=== PATIENT | female | born 1950 ===

== ENCOUNTER 2017-10-04 17:36 | Inpatient (IN) | payer SELFPAY ==
[2017-10-04] MEDS ORDERED: Azithromycin 500mg/250ML NS 500 MG/250 ML BAG IV STA (18:52)
[2017-10-04] MEDS ORDERED: cefTRIAXone IV 1 gm in Dextros 50 ML IV STA (18:52)
[2017-10-04] MEDS ORDERED: Sodium Chloride 0.9% 1,000 ML IV ONE (18:52)
[2017-10-04 19:08] LABS: BASO # 0.1 K/uL (0.0-0.2); BASO % 0.5 % (0.0-2.0); EOS # 0.1 K/uL (0.0-0.7); EOS % 0.4 % (0.0-4.0); LYMPH # 0.7 K/uL (1.0-4.3); LYMPH % 2.9 % (20.0-40.0); MEAN CELL VOLUME 84.1 fL (81.0-99.0); MEAN CORPUSCULAR HEMOGLOBIN 28.5 pg (27.0-31.0); MEAN CORPUSCULAR HGB CONC 33.9 g/dL (33.0-37.0); MEAN PLATELET VOLUME 10.7 fL (7.2-11.7); MONO # 0.8 K/uL (0.0-0.8); MONO % 3.4 % (0.0-10.0); PLATELET COUNT 174 K/uL (130-400); RED CELL DISTRIBUTION WIDTH 13.6 % (11.5-14.5); WHITE BLOOD COUNT 22.5 K/uL (4.8-10.8)
[2017-10-04 19:25] LABS: CALCIUM 8.4 mg/dl (8.6-10.4); TOTAL PROTEIN 6.2 g/dL (6.3-8.3)
[2017-10-04 19:33] LABS: NEUTROPHIL 89 % (50-75); TOTAL CELLS COUNTED 100
[2017-10-04] MEDS ORDERED: Potassium Chloride 20 mEq ER Tab PO STA (19:55)
--- NOTE | 2017-10-04 19:57 | C.PDOC ---
History Of Present Illness Luisa Milner is a 67 year old female, with a past medical history of hypertension , who presents to the emergency department complaining of right sided pleuritic pain and fever onset for x1 week. Patient recently came from [facility]. She reports feeling lightheaded and weak when she walks. Patient has a family history of respiratory problems. She denies any other medical complaints. PMD: None provided. Time Seen by Provider: 10/04/17 18:24 Chief Complaint (Nursing): Fever History Per: Patient History/Exam Limitations: no limitations Onset/Duration Of Symptoms: Days Current Symptoms Are (Timing): Still Present Sick Contacts (Context): None Associated Symptoms: Fever Ear Symptoms: Bilateral: None Recent travel outside of the [place]: [facility] Past Medical History Reviewed: Historical Data, Nursing Documentation, Vital Signs Vital Signs: Last Vital Signs Temp 98.2 F 10/04/17 22:44 Pulse 71 10/04/17 22:44 Resp 20 10/04/17 22:44 BP 109/72 10/04/17 22:44 Pulse Ox 94 L 10/04/17 22:44 - Medical History PMH: HTN Surgical History: No Surg Hx Family History: States: Unknown Family Hx - Social History Hx Tobacco Use: No Hx Alcohol Use: No Hx Substance Use: No - Immunization History Hx Tetanus Toxoid Vaccination: No Hx Influenza Vaccination: No Hx Pneumococcal Vaccination: No Review Of Systems Except As Marked, All Systems Reviewed And Found Negative. Constitutional: Positive for: Fever Respiratory: Positive for: Pleuritic Pain (right sided) Physical Exam - Physical Exam Appears: Other (sick and febrile) Skin: Normal Color, Warm, Dry Head: Atraumatic, Normacephalic Eye(s): bilateral: Normal Inspection, PERRL, EOMI Neck: Normal, Normal ROM, Supple Cardiovascular: Other (tachycardic) Respiratory: Decreased Breath Sounds (on right side) Gastrointestinal/Abdominal: Normal Exam, Soft, No Tenderness Back: Normal Inspection, No CVA Tenderness Extremity: Normal ROM, No Pedal Edema, No Deformity, No Swelling Neurological/Psych: Oriented x3, Normal Speech ED Course And Treatment - Laboratory Results Result Diagrams: 10/04/17 19:04 10/04/17 19:04 O2 Sat by Pulse Oximetry: 93 (RA) Pulse Ox Interpretation: Abnormal Medical Decision Making Medical Decision Making: Initial Impression: Initial Plan: --Chest w/o contrast [CT] --Comp Metabolic Panel --CBC w/ differential --Chest two views (PA/LAT) [RAD] --ceftriaxone 50 ml IV --Potassium Chloride 20 meq PO --Protonix EC tab 40 mg PO --NS IV 1,000 ml @ 125 mls/hr --Tylenol 675 mg PO --Zithromax 250 ml IV --Blood culture --reevaluation --Xray show right sided right upper lobe infiltrate. --Spoke to Dr. Rodríguez who accepted her for admission. 19:[address] FINDINGS: Lungs: Calcified granulomas noted in the left lung apex. Patchy subpleural atelectasis is noted within the lingula. Hypoventilatory changes seen within the right lower lobe. There is a consolidation of the right upper lobe with relative sparing of the right lung apex. There are bronchograms are noted throughout the consolidated segment. A 4 mm nodule noted in the right middle lobe. There is a small pericardial effusion. Pleural space: There are small bilateral pleural effusions. No pneumothorax. Heart: See above. Mediastinum: There is a small hiatal hernia. Bones/joints: Unremarkable. No acute fracture. No dislocation. Soft tissues: Unremarkable. Vasculature: Unremarkable. No thoracic aortic aneurysm. Lymph nodes: Calcified perihilar and subcarinal lymph nodes are noted Liver: Calcifications are noted within the liver. Kidneys and ureters: A less than 2 mm area of high density is noted in the upper pole of the left kidney. This could represent a tiny calcification or hyperdense tiny renal lesion. Stomach and bowel: There scattered colonic diverticula. IMPRESSION: 1. Right upper lobe consolidation with relative sparing of the lung apex. Small bilateral pleural effusions. 2. Small pericardial effusion. 3. Small hiatal hernia. 4. Calcified mediastinal adenopathy with hepatic calcifications, and calcified granuloma in the left lung apex indicate previous granulomas infection. 5. Faint hyperdensity noted in the left kidney.This could represent a tiny calcification or hyperdense renal lesion 6. 4 mm nodule in the right middle lobe. This could be inflammatory. Followup recommended. Disposition - Disposition Disposition: HOSPITALIZED Disposition Time: 19:56 Condition: FAIR - Clinical Impression Clinical Impression: Pneumonia - Scribe Statement Boaz Bowens All medical record entries made by the Scribe were at my direction and personally dictated by me. I have reviewed the chart and agree that the record accurately reflects my personal performance of the history, physical exam, medical decision making, and the department course for this patient. I have also personally directed, reviewed, and agree with the discharge instructions and disposition. Decision To Admit - Pt Status Changed To: Hospital Disposition Of: Inpatient - Admit Certification Admit to Inpatient:: After my assessment, the patient will require hospitalization for at least two midnights. This is because of the severity of symptoms shown, intensity of services needed, and/or the medical risk in this patient being treated as an outpatient. - InPatient: Physician Admission Certification:: patient will need more then 2 days of hospitalization and IV antibiotics. - . Bed Request Type: Regular Patient Diagnosis: Pneumonia
[2017-10-04] MEDS ORDERED: Potassium Chloride 20 mEq ER Tab PO ONE (20:19)
[2017-10-04 21:28] VITALS: RESP 20
--- NOTE | 2017-10-04 21:54 | CP.PCM.HP ---
<Bolivar Chaudhry - Last Filed: 10/04/17 22:12> History of Present Illness - History of Present Illness History of Present Illness: PGY-1 H&P for Dr[address] Rodríguez CC:Upper back pain on right side This is a 67 year old female with PMHx hypertension who presents complaining of right sided upper back pain. This began on Friday when the patient developed a sharp pain in the right upper thoracic region extending to the axilla on the same side. Pain worsens with breathing and conversing for long periods of time. Patient is at times short of breath but primarily she is experiencing a dry cough. Patient has been taking Naproxen 220 mg tabs 2-3 times daily since Friday to help with the pain with mild relief. Patient does not experience any other pain aside from the upper back pain. There is also complaint of some pain with urination which has also started around the same time. Patient also complaining of constipation but last BM was earlier this morning. Patient also feels a bit lightheaded at times. Of note, the patient is visiting [facility] and has been taking Irbesartan/HCTZ 300/12.5 mg daily that [place]. PMHx: Hypertension PSHx: Denies Allergies: NKDA Social: From [facility]. Denies ever smoking. No alcohol or drug use. Family Hx: Denies Meds:Irbesartan/HCTZ 300/12.5 mg daily and Naproxen 220 mg prn (has been taking it 2-3 times daily) Present on Admission - Present on Admission Any Indicators Present on Admission: No Review of Systems - Constitutional Constitutional: Fever. absent: Chills - EENT Eyes: absent: Change in Vision Nose/Mouth/Throat: absent: Nasal Congestion - Cardiovascular Cardiovascular: absent: Chest Pain - Respiratory Respiratory: Cough. absent: Dyspnea - Gastrointestinal Gastrointestinal: Constipation. absent: Abdominal Pain, Diarrhea, Nausea, Vomiting - Genitourinary Genitourinary: Dysuria - Musculoskeletal Musculoskeletal: Back Pain (upper back) - Neurological Neurological: Weakness - Endocrine Endocrine: Fatigue Past Patient History - Past Social History Smoking Status: Never Smoked - CARDIAC Hx Hypertension: Yes - PSYCHIATRIC Hx Substance Use: No - SURGICAL HISTORY Hx Hysterectomy: Yes Meds Allergies/Adverse Reactions: Allergies Allergy/AdvReac Type Severity Reaction Status Date / Time No Known Allergies Allergy Unverified 10/04/17 17:42 Physical Exam - Constitutional Appears: No Acute Distress - Head Exam Head Exam: ATRAUMATIC, NORMOCEPHALIC - Eye Exam Eye Exam: EOMI, Normal appearance - ENT Exam ENT Exam: Mucous Membranes Moist - Respiratory Exam Respiratory Exam: Clear to Auscultation Bilateral. absent: Accessory Muscle Use , Rales, Rhonchi, Wheezes - Cardiovascular Exam Cardiovascular Exam: REGULAR RHYTHM, +S1, +S2 - GI/Abdominal Exam GI & Abdominal Exam: Normal Bowel Sounds, Soft. absent: Tenderness - Extremities Exam Extremities exam: Positive for: pedal pulses present. Negative for: pedal edema Additional comments: poor skin turgor - Back Exam Back exam: absent: CVA tenderness (L), CVA tenderness (R) - Neurological Exam Neurological exam: Alert, Oriented x3 - Psychiatric Exam Psychiatric exam: Normal Affect, Normal Mood - Skin Skin Exam: Dry, Intact, Warm Results - Vital Signs Recent Vital Signs: Last Vital Signs Temp 98 F 10/04/17 21:27 Pulse 79 10/04/17 21:27 Resp 20 10/04/17 21:27 BP 108/63 10/04/17 21:27 Pulse Ox 93 L 10/04/17 21:44 - Labs Result Diagrams: 10/04/17 19:04 10/04/17 19:04 Labs: Laboratory Results - last 24 hr 10/04/17 10/04/17 10/04/17 18:25 19:04 19:04 WBC 22.5 H RBC 3.45 L Hgb 9.8 L Hct 29.0 L MCV 84.1 MCH 28.5 MCHC 33.9 RDW 13.6 Plt Count 174 MPV 10.7 Neut % (Auto) 92.8 H Lymph % (Auto) 2.9 L Lamar % (Auto) 3.4 Eos % (Auto) 0.4 Baso % (Auto) 0.5 Neut # 20.9 H Lymph # 0.7 L Lamar # 0.8 Eos # 0.1 Baso # 0.1 Neutrophils % (Manual) 89 H Band Neutrophils % 3 H Lymphocytes % (Manual) 6 L Monocytes % (Manual) 2 Toxic Granulation Present Platelet Estimate Normal RBC Morphology Normal Sodium 130 L Potassium 3.0 L Chloride 101 Carbon Dioxide 22 Anion Gap 10 BUN 39 H Creatinine 2.3 H Est GFR ( Amer) 26 Est GFR (Non-Af Amer) 21 Random Glucose 168 H Calcium 8.4 L Total Bilirubin 1.0 AST 26 ALT 19 Alkaline Phosphatase 352 H Total Protein 6.2 L Albumin 3.0 L Globulin 3.1 Albumin/Globulin Ratio 1.0 Influenza Typ A,B (EIA) Negative for flu a/b Assessment & Plan - Assessment and Plan (Free Text) Plan: Pneumonia Azithromycin 500 mg IV daily Ceftriaxone 1 gm IV daily CXR-consolidation on the right f/u blood cultures f/u CT scan ordered by ED History of Hypertension Held Irbesartan/HCTZ due to renal insufficiency Monitor for now Renal insufficiency NS @125cc/hr Kdurr 40 mEq x2 doses F/u urinalysis F/u morning labs Anemia F/u iron studies including iron, TIBC, %saturation, ferritin, reticulocyte count F/u B12 and folate Prophylactic Measures Protonix 40 mg PO daily Heparin 5000U SC Q8 Heart Healthy Diet Case DW Dr. Anne Chaudhry PGY-1 <James Rodríguez P - Last Filed: 10/05/17 06:17> Results - Vital Signs Recent Vital Signs: Last Vital Signs Temp 97.9 F 10/05/17 00:00 Pulse 74 10/05/17 00:00 Resp 20 10/05/17 00:00 BP 109/70 10/05/17 00:00 Pulse Ox 96 10/05/17 00:00 - Labs Result Diagrams: 10/04/17 19:04 10/04/17 19:04 Labs: Laboratory Results - last 24 hr 10/04/17 10/04/17 10/04/17 18:25 19:04 19:04 WBC 22.5 H RBC 3.45 L Hgb 9.8 L Hct 29.0 L MCV 84.1 MCH 28.5 MCHC 33.9 RDW 13.6 Plt Count 174 MPV 10.7 Neut % (Auto) 92.8 H Lymph % (Auto) 2.9 L Lamar % (Auto) 3.4 Eos % (Auto) 0.4 Baso % (Auto) 0.5 Neut # 20.9 H Lymph # 0.7 L Lamar # 0.8 Eos # 0.1 Baso # 0.1 Neutrophils % (Manual) 89 H Band Neutrophils % 3 H Lymphocytes % (Manual) 6 L Monocytes % (Manual) 2 Toxic Granulation Present Platelet Estimate Normal RBC Morphology Normal APTT Sodium 130 L Potassium 3.0 L Chloride 101 Carbon Dioxide 22 Anion Gap 10 BUN 39 H Creatinine 2.3 H Est GFR ( Amer) 26 Est GFR (Non-Af Amer) 21 Random Glucose 168 H Calcium 8.4 L Total Bilirubin 1.0 AST 26 ALT 19 Alkaline Phosphatase 352 H Total Protein 6.2 L Albumin 3.0 L Globulin 3.1 Albumin/Globulin Ratio 1.0 Influenza Typ A,B (EIA) Negative for flu a/b 10/04/17 22:55 WBC RBC Hgb Hct MCV MCH MCHC RDW Plt Count MPV Neut % (Auto) Lymph % (Auto) Lamar % (Auto) Eos % (Auto) Baso % (Auto) Neut # Lymph # Lamar # Eos # Baso # Neutrophils % (Manual) Band Neutrophils % Lymphocytes % (Manual) Monocytes % (Manual) Toxic Granulation Platelet Estimate RBC Morphology APTT 30 Sodium Potassium Chloride Carbon Dioxide Anion Gap BUN Creatinine Est GFR ( Amer) Est GFR (Non-Af Amer) Random Glucose Calcium Total Bilirubin AST ALT Alkaline Phosphatase Total Protein Albumin Globulin Albumin/Globulin Ratio Influenza Typ A,B (EIA) Attending/Attestation - Attestation I have personally seen and examined this patient.: Yes I have fully participated in the care of the patient.: Yes I have reviewed all pertinent clinical information: Yes Notes (Text): Assessment RUL pna with pleurisy ELIZABETH related with diuretic, arb, nsaid hypokalemia from diuretic Anemia r/o iorn def H/o gastritis Plan Rocephin, zithromax IVF KCL replacement Mag level Iron studies counselled about nsaids gi and dvt prophylaxis.
[2017-10-04] MEDS: Sodium Chloride 0.9% 1,000 ML IV SCH (22:20)
[2017-10-04] MEDS: Potassium Chloride 20 mEq ER Tab PO SCH (22:33)
[2017-10-05] MEDS: Potassium Chloride 20 mEq ER Tab PO SCH (02:34)
[2017-10-05] MEDS: Sodium Chloride 0.9% 1,000 ML IV SCH ×2 (06:25→13:15)
[2017-10-05 08:09] LABS: RBC URINE 5 /hpf (0-3); URINE BACTERIA RARE (<OCC); URINE BILIRUBIN NEGATIVE (NEGATIVE); URINE BLOOD 1+ (NEGATIVE); URINE COLOR Yellow (YELLOW); URINE GLUCOSE (UA) NORMAL (Normal); URINE KETONE NEGATIVE (NEGATIVE); URINE LEUKOCYTE ESTERASE NEG Leu/uL (Negative); URINE PROTEIN NEGATIVE (NEGATIVE); URINE UROBILINOGEN NORMAL mg/dL (0.2-1.0); WBC URINE 2 /hpf (0-5)
[2017-10-05 08:14] LABS: BASO # 0.1 K/uL (0.0-0.2); BASO % 0.4 % (0.0-2.0); EOS # 0.3 K/uL (0.0-0.7); EOS % 1.3 % (0.0-4.0); HEMATOCRIT 29.3 % (34.0-47.0); LYMPH # 1.1 K/uL (1.0-4.3); LYMPH % 4.7 % (20.0-40.0); MEAN CELL VOLUME 85.2 fL (81.0-99.0); MEAN CORPUSCULAR HEMOGLOBIN 29.1 pg (27.0-31.0); MEAN CORPUSCULAR HGB CONC 34.1 g/dL (33.0-37.0); MEAN PLATELET VOLUME 11.1 fL (7.2-11.7); MONO % 4.2 % (0.0-10.0); PLATELET COUNT 161 K/uL (130-400); RED CELL DISTRIBUTION WIDTH 13.6 % (11.5-14.5); RETIC% 0.5 % (0.5-1.5); WHITE BLOOD COUNT 23.8 K/uL (4.8-10.8)
[2017-10-05 08:27] LABS: ABG ALLEN TEST POS; DRAW SITE LRA
--- NOTE | 2017-10-05 08:32 | RAD ---
HISTORY: COMPARISON: No prior. TECHNIQUE: Chest PA and lateral FINDINGS: LINES AND TUBES: None. LUNG AND PLEURA: And fever there is dense consolidation with air bronchograms in the right upper lobe. The left lung is clear. HEART AND MEDIASTINUM: The heart is not enlarged. The hilar and mediastinal contours are within normal limits. SKELETAL STRUCTURES: The bony structures are within normal limits for the patient's age. VISUALIZED UPPER ABDOMEN: Normal. OTHER FINDINGS: None. IMPRESSION: Right upper lobe pneumonia. Follow-up to resolution is advised.
[2017-10-05 08:39] LABS: ALB/GLOB RATIO 0.9 (1.0-2.1); BILIRUBIN,TOTAL 0.8 mg/dL (0.2-1.3); CALCIUM 8.3 mg/dl (8.6-10.4); MAGNESIUM 1.9 mg/dL (1.6-2.3); POTASSIUM 4.3 mmol/L (3.6-5.2); TOTAL PROTEIN 5.8 g/dL (6.3-8.3)
[2017-10-05 08:41] LABS: IRON < 10 ug/dL (37-170)
[2017-10-05 08:59] LABS: TOTAL CELLS COUNTED 100
[2017-10-05 09:00] LABS: NEUTROPHIL 89 % (50-75)
[2017-10-05 09:33] LABS: FOLATE 17.2 ng/mL
--- NOTE | 2017-10-05 09:57 | CT ---
PROCEDURE: CT Chest without contrast HISTORY: right sided infiltrate COMPARISON: Plain radiographs performed earlier the same day TECHNIQUE: Contiguous axial images were obtained through the chest without intravenous contrast enhancement. Sagittal and coronal reconstructions were performed. Radiation dose (DLP): 204.46 mGy-cm. This CT exam was performed using one or more of the following dose reduction techniques: Automated exposure control, adjustment of the mA and/or kV according to patient size, and/or use of iterative reconstruction technique. FINDINGS: LUNGS: There is dense consolidation with air bronchogram in the right upper lobe and to a lesser extent in the right middle lobe and superior segment of the right lower lobe. There is relative sparing of the right apex. There is a bulla in the right upper lobe. There is a 5 mm noncalcified peripheral nodule in the right middle lobe (series 3, image 56 and There are scattered calcified granulomas in both lungs. MEDIASTINUM: There is mild cardiomegaly and small pericardial effusion. There are calcified mediastinal and hilar lymph nodes. PLEURA: Small bilateral pleural effusions, worse on the right. No pneumothorax. BONES: No fracture. No destructive lesion. UPPER ABDOMEN: There are punctate calcifications in the right hepatic lobe which may be related to calcified granulomas. There is scattered diverticulosis in the visualized colon. Incompletely imaged are low density lesions in the kidneys with eccentric hyperdensity in the left upper pole lesion. OTHER FINDINGS: There is a small sliding hiatal hernia. IMPRESSION: 1. Right upper lobe pneumonia. Follow-up to resolution is advised. 2. Small pericardial effusion and bilateral small pleural effusions, worse on the right. 3. Calcified granulomas in the lungs and calcified mediastinal and hilar lymph nodes, likely a sequela of remote granulomatous infection. 4. 4 mm noncalcified nodule in the right middle lobe. 5. Incompletely imaged and characterized bilateral kidney lesions. Please correlate with retroperitoneal ultrasound. A preliminary report was provided by [facility].
[2017-10-05] MEDS: Pantoprazole 40 mg EC Tab PO SCH (10:31)
[2017-10-05] MEDS: Saccharomyces Boulardi 250 mg Cap PO SCH ×2 (10:31→18:01)
--- NOTE | 2017-10-05 10:56 | CP.PCM.PN ---
<Ashley Leahy - Last Filed: 10/05/17 15:34> Subjective - Date & Time of Evaluation Date of Evaluation: 10/05/17 Time of Evaluation: 10:54 - Subjective Subjective: Medicine Progress Note: Hospitalist Service Patient seen and examined at bedside. Per nursing no acute events overnight. Patient is doing well, states that she feels chest pain every time she takes a deep breath. Also states that she has been coughing a lot with sputum production. States that she has no known history of renal disease that she is aware of. Currently denies fevers, chills, headaches, dizziness, palpitations, sob, abdominal pain, urinary symptoms, changes in bowel habits. Objective - Vital Signs/Intake and Output Vital Signs (last 24 hours): Temp Pulse Resp BP Pulse Ox 99 F 77 20 124/79 95 10/05/17 08:17 10/05/17 08:17 10/05/17 08:17 10/05/17 08:17 10/05/17 08:17 - Medications Medications: Current Medications Acetaminophen (Tylenol 325mg Tab) 650 mg PO Q6 PRN PRN Reason: fever, pain Heparin Sodium (Porcine) (Heparin) 5,000 units SC Q8 [facility] Last Admin: 10/05/17 05:20 Dose: 5,000 units Azithromycin 500 mg/ Sodium (Chloride) 250 mls @ 250 mls/hr IVPB DAILY@2100 [facility] Ceftriaxone Sodium 1 gm/ (Sodium Chloride) 100 mls @ 100 mls/hr IVPB DAILY@ 2000 [facility] Sodium Chloride (Sodium Chloride 0.9%) 1,000 mls @ 125 mls/hr IV .Q8H [facility] Last Admin: 10/05/17 06:25 Dose: 125 mls/hr Pantoprazole Sodium (Protonix Ec Tab) 40 mg PO DAILY [facility] Last Admin: 10/05/17 10:31 Dose: 40 mg Saccharomyces Boulardii (Florastor) 250 mg PO BID [facility] Last Admin: 10/05/17 10:31 Dose: 250 mg - Labs Labs: 10/05/17 07:54 10/05/17 07:54 APTT 30 SECONDS (21-34) 10/04/17 22:55 - Constitutional Appears: Non-toxic, No Acute Distress - Head Exam Head Exam: ATRAUMATIC, NORMAL INSPECTION - Eye Exam Eye Exam: EOMI, Normal appearance - ENT Exam ENT Exam: Mucous Membranes Moist - Respiratory Exam Respiratory Exam: Decreased Breath Sounds, Rhonchi, NORMAL BREATHING PATTERN. absent: Accessory Muscle Use, Rales, Wheezes, Respiratory Distress - Cardiovascular Exam Cardiovascular Exam: REGULAR RHYTHM, +S1, +S2 - GI/Abdominal Exam GI & Abdominal Exam: Soft, Normal Bowel Sounds. absent: Firm, Guarding, Rigid, Tenderness - Rectal Exam Rectal Exam: Deferred - Extremities Exam Extremities Exam: Normal Capillary Refill, Normal Inspection. absent: Calf Tenderness - Neurological Exam Neurological Exam: Alert, Awake, Oriented x3 - Psychiatric Exam Psychiatric exam: Normal Affect, Normal Mood - Skin Skin Exam: Dry, Normal Color, Warm Assessment and Plan - Assessment and Plan (Free Text) Assessment: 1. Community Acquired Pneumonia * Pneumonia severity index 117 - Risk class IV, 8.2-9.3% mortality, Hospitalization recommended * Patient is Hypoxic on morning ABG * pH 7.39 PO2 46 PCO2 31 HCO3 20 * Continuous O2 via NC * Bipap STAT * Will repeat ABG this afternoon, after bipap * Will transfer to telemetry floor * CXR on admission - Right upper lobe pneumonia * Will repeat CXR this afternoon * Leukocytosis 23.8 * Antibiotics: Azithromycin 500 mg IV daily, Ceftriaxone 1 gm IV daily, Florastor 250mg BID * One dose of Vancomycin 500mg IVPB ordered * NS @ 50 cc/hr * F/U urine s pneumo, urine legionella, mycoplasma * F/U blood cx, urine cx, procalcitonin * CT scan: Right upper lobe pneumonia, small pericadial effusion and bilateral small pleural effusions, worse on the right. Calcified granulomas in the lungs and calcified mediastinal and hilar lymph nodes, likely a sequela of remote granulomatous infection. 4mm noncalcified nodule in the right middle lobe. Incompletely imaged and characterized bilateral kidney lesion 2. History of Hypertension * Held Irbesartan/HCTZ due to renal insufficiency * Monitor for now 3. Renal insufficiency * BUN/Cr - 31/2.0 * Baseline Renal function unknown * Patient has a hx of Naproxen use, avoid NSAIDs and other nephrotoxic medications at this time * Continue NS @125cc/hr * Renal US: 5mm non-obtructing stone in upper pole, no hydronephrosis; incidental finding of gallbladder sludge, GBW thickening, pericholecystic fluid * FeNa 3.0% suggesting Intrinsic cause of renal insufficiency * Urine microalbumin 20.4 * F/U total protein, random * F/U Bladder US * Nephrology on consult, Dr Austin, help appreciated 4. Anemia * Hgb 10.0 * Baseline hemoglobin unknown * Stool occult negative * Anemia workup * Iron <10 * TIBC 197 * % saturation 5.07 * Retic count 0.5 * Ferritin 131 * Vitamin B12 419 * Folate 17.2 * F/U haptoglobin 5. Small Pericardial Effusion * Incidental finding noted on CT chest * Echo ordered for further evaluation * Will consider cardiology consult 6. Abnormal Gallbladder finding, R/O acute cholecystitis * Gallbladder sludge, GBW thickening, pericholecystic fluid noted on renal US report * Difficult to assess if patient is having +[place] sign as inspiratory effort is poor 2/2 pleuritic chest pain * T bili within normal range, LFTs within normal range * Surgery on consult, Dr Ochoa, help appreciated Prophylactic Measures Protonix 40 mg PO daily Heparin 5000U SC Q8 Heart Healthy Diet <Nelda Bullard V - Last Filed: 10/06/17 21:17> Objective - Vital Signs/Intake and Output Vital Signs (last 24 hours): Temp Pulse Resp BP Pulse Ox 98.5 F 68 20 163/93 H 95 10/06/17 16:10 10/06/17 18:00 10/06/17 16:10 10/06/17 16:10 10/06/17 16:10 Intake and Output: 10/06/17 10/07/17 18:59 06:59 Intake Total 400 Balance 400 - Medications Medications: Current Medications Acetaminophen (Tylenol 325mg Tab) 650 mg PO Q6 PRN PRN Reason: fever, pain Amlodipine Besylate (Norvasc) 5 mg PO DAILY [facility] Last Admin: 10/06/17 16:04 Dose: 5 mg Ferrous Sulfate (Feosol) 325 mg PO BID [facility] Last Admin: 10/06/17 17:24 Dose: 325 mg Heparin Sodium (Porcine) (Heparin) 5,000 units SC Q8 [facility] Last Admin: 10/06/17 13:39 Dose: 5,000 units Azithromycin 500 mg/ Sodium (Chloride) 250 mls @ 250 mls/hr IVPB DAILY@2100 [facility] Last Admin: 10/05/17 22:26 Dose: 250 mls/hr Ceftriaxone Sodium 1 gm/ (Sodium Chloride) 100 mls @ 100 mls/hr IVPB DAILY@ 2000 [facility] Last Admin: 10/06/17 19:38 Dose: 100 mls/hr Sodium Chloride (Sodium Chloride 0.9%) 1,000 mls @ 50 mls/hr IV .Q20H [facility] Last Admin: 10/06/17 16:06 Dose: Not Given Pantoprazole Sodium (Protonix Ec Tab) 40 mg PO DAILY [facility] Last Admin: 10/06/17 09:05 Dose: 40 mg Saccharomyces Boulardii (Florastor) 250 mg PO BID [facility] Last Admin: 10/06/17 17:24 Dose: 250 mg - Labs Labs: 10/06/17 07:18 10/06/17 07:18 APTT 30 SECONDS (21-34) 10/04/17 22:55 Attending/Attestation - Attestation I have personally seen and examined this patient.: Yes I have fully participated in the care of the patient.: Yes I have reviewed all pertinent clinical information, including history, physical exam and plan: Yes Notes (Text): This is late computer for 10/05/2017. Patient seen, examined, case discussed with daytime resident. Patient seen in the morning sitting upright coughing with productive phlegm. Patient is waiting for breakfast. Per review of records patient is reporting unremitting cough for about 3 weeks. Patient to present with leukocytosis and febrile over 102.8 Fahrenheit. Lactic acid is within normal. Therefor code sepsis was not called. Patient is on IV antibiotics to cover for pneumonia. Patient denies any recent hospitalizations, denies recent alf visits. Patient did have an ABG which did show hypoxia. Patient started on BiPAP when necessary.. Was endorsed to night-resident Nova with repeat ABG. Patient transferred to telemetry for close monitoring. Reviewed superficial CT chest read. Patient noted to have small pericardial effusion. Patient is ordered waiting for echocardiogram. Patient does percent with acute renal insufficiency. Patient is IV fluids. Creatinine has mildly improved. Patient is off nephrotoxic agents including antihypertensive medicationssuch as john/arb and thiazide diuretic. Patient has completed renal ultrasound. Nephrology is on the case. It is unclear what her baseline creatinine is. Please note patient is also has a long-standing history of hypertension. Assessment/Plan 1. Community Acquired Pneumonia Pneumonia severity index 117 - Risk class IV, 8.2-9.3% mortality, Hospitalization recommended . Patient is Hypoxic on morning ABG: pH 7.39 PO2 46 PCO2 31 HCO3 20 Continuous O2 via NC and Bipap STAT Will repeat ABG this afternoon, after bipap to monitor improvement in oxygen status Will transfer to telemetry floor CXR on admission - Right upper lobe pneumonia Will repeat CXR this afternoon Leukocytosis 23.8: Antibiotics: Azithromycin 500 mg IV daily, Ceftriaxone 1 gm IV daily, Florastor 250mg BID; One dose of Vancomycin 500mg IVPB ordered NS @ 50 cc/hr F/U urine s pneumo, urine legionella, mycoplasma F/U blood cx, urine cx, procalcitonin CT scan: Right upper lobe pneumonia, small pericadial effusion and bilateral small pleural effusions, worse on the right. Calcified granulomas in the lungs and calcified mediastinal and hilar lymph nodes, likely a sequela of remote granulomatous infection. 4mm noncalcified nodule in the right middle lobe. Incompletely imaged and characterized bilateral kidney lesion 2. History of Hypertension Held Irbesartan/HCTZ due to renal insufficiency Gentle IV hydration and monitor vital signs 3. Acute Renal insufficiency BUN/Cr - 31/2.0 Baseline Renal function unknown Patient has a hx of Naproxen use, avoid NSAIDs and other nephrotoxic medications at this time. Will hold antihypertensives On IV fluids Nephrology: Dr Austin on board Renal US: 5mm non-obtructing stone in upper pole, no hydronephrosis; incidental finding of gallbladder sludge, GBW thickening, pericholecystic fluid FeNa 3.0% suggesting Intrinsic cause of renal insufficiency Urine microalbumin 20.4; F/U total protein, random F/U Bladder US 4. Anemia Hgb 10.0 Baseline hemoglobin unknown Stool occult negative Anemia workup: Iron <10, TIBC 197,% saturation 5.07,Retic count 0.5, Ferritin 131, Vitamin B12 419, [id number] F/U haptoglobin 5. Small Pericardial Effusion Incidental finding noted on CT chest Echo ordered for further evaluation; pending result will consider cardiology consult if needed 6. Abnormal Gallbladder finding, R/O acute cholecystitis Gallbladder sludge, GBW thickening, pericholecystic fluid noted on renal US report Difficult to assess if patient is having +[place] sign as inspiratory effort is poor 2/2 pleuritic chest pain T bili within normal range, LFTs within normal range Surgery on consult, Dr Ochoa, help appreciated: residential field manager has seen and evaluated patient does not believe it's acute cholecystitis will be set gallbladder contracture is from the nature of the procedure of ultrasound. Recommendation appreciated. 7.Prophylactic Measures Protonix 40 mg PO daily Heparin 5000U SC Q8 Heart Healthy Diet
--- NOTE | 2017-10-05 12:59 | US ---
PROCEDURE: Ultrasound of the Kidneys HISTORY: Acute renal failure; L kidney lesion on CT COMPARISON: None available. TECHNIQUE: Ralph scale imaging was performed. FINDINGS: RIGHT KIDNEY: Measures: 10.5 cm. Normal in size, contour with diffuse increased echogenicity. No solid mass lesion or hydronephrosis visualized. There is a 5 mm non -obstructing stone in the upper pole. There is a 1.0 cm cyst in the upper pole. LEFT KIDNEY: Measures: 9.8 cm. Normal in size, contour with diffuse increased echogenicity. No stone, solid mass lesion or hydronephrosis visualized. There are 6 mm and 9 mm cyst in the lower pole. OTHER FINDINGS: Incidental finding of gall bladder sludge, wall thickening and pericholecystic fluid. IMPRESSION: 5 mm non -obstructing stone in the upper pole. No hydronephrosis. Medical renal disease.
[2017-10-05 14:44] LABS: CREATININE, RANDOM URINE 24.9 mg/dL
--- NOTE | 2017-10-05 15:49 | RAD ---
HISTORY: Shortness of breath COMPARISON: No prior. FINDINGS: LUNGS: There is worsening right upper lobe consolidation. Lateral homogeneous right pleural-based opacity could represent loculated effusion. There is a stable calcified granuloma in the left upper lobe. PLEURA: No significant pleural effusion identified, no pneumothorax apparent. CARDIOVASCULAR: Normal. OSSEOUS STRUCTURES: No significant abnormalities. VISUALIZED UPPER ABDOMEN: Normal. OTHER FINDINGS: None. IMPRESSION: Worsening right upper lobe pneumonia and suspect loculated pleural effusion.
--- NOTE | 2017-10-05 15:58 | CP.PCM.CON ---
History of Present Illness - History of Present Illness History of Present Illness: General Surgery: Dr Ochoa Pt S&E. Admitted for chest pain/upper back pain. Found to have RML pneumonia as well as acute renal failure. Both appear to be improving after 48 hours abx. Pt was sent for renal ultrasound which noted a thickened gb wall with sludge and questionable fluid. Gallbladder appears normal on CT Pt denies any abdominal pain. There is no exacerbation of symptoms or new onset of symptoms post-prandially. She has not had any nausea or emesis. Has never had any symptoms in the past reflective of biliary symptoms. Pt only complaint at this time is central sub-sternal chest pain only when she coughs. Review of Systems - Review of Systems All systems: reviewed and no additional remarkable complaints except (as per hpi ) Past Patient History - Past Medical History & Family History Past Medical History?: Yes - Past Social History Smoking Status: Never Smoked - CARDIAC Hx Hypertension: Yes - MUSCULOSKELETAL/RHEUMATOLOGICAL Hx Falls: Yes (WEAKNESS ON THE KNEES) - PSYCHIATRIC Hx Substance Use: No - SURGICAL HISTORY Hx Hysterectomy: Yes - ANESTHESIA Hx Anesthesia: Yes Hx Anesthesia Reactions: No Hx Malignant Hyperthermia: No Has any member of the family had a problem w/ anesthesia?: No Meds Allergies/Adverse Reactions: Allergies Allergy/AdvReac Type Severity Reaction Status Date / Time No Known Allergies Allergy Unverified 10/04/17 17:42 - Medications Medications: Current Medications Acetaminophen (Tylenol 325mg Tab) 650 mg PO Q6 PRN PRN Reason: fever, pain Heparin Sodium (Porcine) (Heparin) 5,000 units SC Q8 [facility] Last Admin: 10/05/17 13:16 Dose: 5,000 units Azithromycin 500 mg/ Sodium (Chloride) 250 mls @ 250 mls/hr IVPB DAILY@2100 [facility] Ceftriaxone Sodium 1 gm/ (Sodium Chloride) 100 mls @ 100 mls/hr IVPB DAILY@ 2000 [facility] Sodium Chloride (Sodium Chloride 0.9%) 1,000 mls @ 50 mls/hr IV .Q20H [facility] Last Admin: 10/05/17 13:15 Dose: 50 mls/hr Vancomycin HCl/Dextrose (Vancocin) 500 mg in 100 mls @ 67 mls/hr IVPB ONCE ONE Stop: 10/05/17 17:29 Pantoprazole Sodium (Protonix Ec Tab) 40 mg PO DAILY [facility] Last Admin: 10/05/17 10:31 Dose: 40 mg Saccharomyces Boulardii (Florastor) 250 mg PO BID [facility] Last Admin: 10/05/17 10:31 Dose: 250 mg Physical Exam - Constitutional Appears: Non-toxic, No Acute Distress - Head Exam Head Exam: NORMAL INSPECTION - Eye Exam Eye Exam: Normal appearance. absent: Scleral icterus - ENT Exam ENT Exam: Mucous Membranes Moist - Respiratory Exam Respiratory Exam: absent: Accessory Muscle Use, Clear to Auscultation Bilateral (dec sounds on right), Respiratory Distress - Cardiovascular Exam Cardiovascular Exam: REGULAR RHYTHM. absent: Tachycardia - GI/Abdominal Exam GI & Abdominal Exam: Normal Bowel Sounds, Soft. absent: Distended, Firm, Guarding, Hernia, Tenderness - Extremities Exam Extremities exam: Negative for: pedal edema - Neurological Exam Neurological exam: Alert, Oriented x3 - Psychiatric Exam Psychiatric exam: Normal Affect, Normal Mood Results - Vital Signs Recent Vital Signs: Last Vital Signs Temp 99 F 10/05/17 08:17 Pulse 67 10/05/17 13:35 Resp 20 10/05/17 08:17 BP 124/79 10/05/17 08:17 Pulse Ox 95 10/05/17 08:17 - Labs Result Diagrams: 10/05/17 07:54 10/05/17 07:54 Labs: Laboratory Results - last 24 hr 10/04/17 10/04/17 10/04/17 18:25 19:04 19:04 WBC 22.5 H RBC 3.45 L Hgb 9.8 L Hct 29.0 L MCV 84.1 MCH 28.5 MCHC 33.9 RDW 13.6 Plt Count 174 MPV 10.7 Neut % (Auto) 92.8 H Lymph % (Auto) 2.9 L [place] % (Auto) 3.4 Eos % (Auto) 0.4 Baso % (Auto) 0.5 Neut # 20.9 H Lymph # 0.7 L [place] # 0.8 Eos # 0.1 Baso # 0.1 Neutrophils % (Manual) 89 H Band Neutrophils % 3 H Lymphocytes % (Manual) 6 L Monocytes % (Manual) 2 Toxic Granulation Present Platelet Estimate Normal RBC Morphology Normal Retic Count APTT Puncture Site pCO2 pO2 HCO3 ABG pH ABG Total CO2 ABG O2 Saturation ABG Base Excess Jose R Test ABG Potassium A-a O2 Difference Respiratory Index Glucose Lactate FiO2 Sodium 130 L Potassium 3.0 L Chloride 101 Carbon Dioxide 22 Anion Gap 10 BUN 39 H Creatinine 2.3 H Est GFR ( Amer) 26 Est GFR (Non-Af Amer) 21 POC Glucose (mg/dL) Random Glucose 168 H Calcium 8.4 L Magnesium Iron TIBC % Saturation Ferritin Total Bilirubin 1.0 AST 26 ALT 19 Alkaline Phosphatase 352 H Total Protein 6.2 L Albumin 3.0 L Globulin 3.1 Albumin/Globulin Ratio 1.0 Vitamin B12 Folate Arterial Blood Potassium Urine Color Urine Clarity Urine pH Ur Specific [place] Urine Protein Urine Glucose (UA) Urine Ketones Urine Blood Urine Nitrate Urine Bilirubin Urine Urobilinogen Ur Leukocyte Esterase Urine WBC (Auto) Urine RBC (Auto) Ur Squamous Epith Cells Amorphous Sediment Urine Bacteria Ur Random Creatinine Ur Random Sodium Urine Microalbumin Stool Occult Blood Influenza Typ A,B (EIA) Negative for flu a/b 10/04/17 10/05/17 10/05/17 22:55 07:40 07:50 WBC RBC Hgb Hct MCV MCH MCHC RDW Plt Count MPV Neut % (Auto) Lymph % (Auto) [place] % (Auto) Eos % (Auto) Baso % (Auto) Neut # Lymph # [place] # Eos # Baso # Neutrophils % (Manual) Band Neutrophils % Lymphocytes % (Manual) Monocytes % (Manual) Toxic Granulation Platelet Estimate RBC Morphology Retic Count APTT 30 Puncture Site pCO2 pO2 HCO3 ABG pH ABG Total CO2 ABG O2 Saturation ABG Base Excess Jose R Test ABG Potassium A-a O2 Difference Respiratory Index Glucose Lactate FiO2 Sodium Potassium Chloride Carbon Dioxide Anion Gap BUN Creatinine Est GFR ( Amer) Est GFR (Non-Af Amer) POC Glucose (mg/dL) 86 Random Glucose Calcium Magnesium Iron TIBC % Saturation Ferritin Total Bilirubin AST ALT Alkaline Phosphatase Total Protein Albumin Globulin Albumin/Globulin Ratio Vitamin B12 Folate Arterial Blood Potassium Urine Color Yellow Urine Clarity Clear Urine pH 5.0 Ur Specific [place] 1.005 Urine Protein Negative Urine Glucose (UA) Normal Urine Ketones Negative Urine Blood 1+ H Urine Nitrate Negative Urine Bilirubin Negative Urine Urobilinogen Normal Ur Leukocyte Esterase Neg Urine WBC (Auto) 2 Urine RBC (Auto) 5 H Ur Squamous Epith Cells < 1 Amorphous Sediment Rare H Urine Bacteria Rare Ur Random Creatinine Ur Random Sodium Urine Microalbumin Stool Occult Blood Influenza Typ A,B (EIA) 10/05/17 10/05/17 10/05/17 07:54 07:54 07:54 WBC 23.8 H RBC 3.44 L Hgb 10.0 L Hct 29.3 L MCV 85.2 MCH 29.1 MCHC 34.1 RDW 13.6 Plt Count 161 MPV 11.1 Neut % (Auto) 89.4 H Lymph % (Auto) 4.7 L [place] % (Auto) 4.2 Eos % (Auto) 1.3 Baso % (Auto) 0.4 Neut # 21.2 H Lymph # 1.1 [place] # 1.0 H Eos # 0.3 Baso # 0.1 Neutrophils % (Manual) 89 H Band Neutrophils % 6 H Lymphocytes % (Manual) 3 L Monocytes % (Manual) 2 Toxic Granulation Platelet Estimate Normal RBC Morphology Normal Retic Count 0.5 APTT Puncture Site pCO2 pO2 HCO3 ABG pH ABG Total CO2 ABG O2 Saturation ABG Base Excess Jose R Test ABG Potassium A-a O2 Difference Respiratory Index Glucose Lactate FiO2 Sodium 138 Potassium 4.3 Chloride 108 H Carbon Dioxide 24 Anion Gap 10 BUN 31 H Creatinine 2.0 H Est GFR ( Amer) 30 Est GFR (Non-Af Amer) 25 POC Glucose (mg/dL) Random Glucose 85 Calcium 8.3 L Magnesium 1.9 Iron < 10 L TIBC 197 L % Saturation 5.07 L Ferritin 131.0 Total Bilirubin 0.8 AST 25 ALT 26 Alkaline Phosphatase 309 H Total Protein 5.8 L Albumin 2.7 L Globulin 3.1 Albumin/Globulin Ratio 0.9 L Vitamin B12 419 Folate 17.2 Arterial Blood Potassium Urine Color Urine Clarity Urine pH Ur Specific [place] Urine Protein Urine Glucose (UA) Urine Ketones Urine Blood Urine Nitrate Urine Bilirubin Urine Urobilinogen Ur Leukocyte Esterase Urine WBC (Auto) Urine RBC (Auto) Ur Squamous Epith Cells Amorphous Sediment Urine Bacteria Ur Random Creatinine Ur Random Sodium Urine Microalbumin Stool Occult Blood Influenza Typ A,B (EIA) 10/05/17 10/05/17 10/05/17 08:23 11:10 11:10 WBC RBC Hgb Hct MCV MCH MCHC RDW Plt Count MPV Neut % (Auto) Lymph % (Auto) [place] % (Auto) Eos % (Auto) Baso % (Auto) Neut # Lymph # [place] # Eos # Baso # Neutrophils % (Manual) Band Neutrophils % Lymphocytes % (Manual) Monocytes % (Manual) Toxic Granulation Platelet Estimate RBC Morphology Retic Count APTT Puncture Site Lra pCO2 31 L pO2 46 L HCO3 20.0 L ABG pH 7.38 ABG Total CO2 19.3 L ABG O2 Saturation 90.1 L ABG Base Excess -5.7 L Jose R Test Pos ABG Potassium 3.5 L A-a O2 Difference 65.0 Respiratory Index 1.4 Glucose 79 Lactate 0.6 L FiO2 21.0 Sodium 143.0 Potassium Chloride 117.0 H Carbon Dioxide Anion Gap BUN Creatinine Est GFR ( Amer) Est GFR (Non-Af Amer) POC Glucose (mg/dL) Random Glucose Calcium Magnesium Iron TIBC % Saturation Ferritin Total Bilirubin AST ALT Alkaline Phosphatase Total Protein Albumin Globulin Albumin/Globulin Ratio Vitamin B12 Folate Arterial Blood Potassium 3.5 L Urine Color Urine Clarity Urine pH Ur Specific [place] Urine Protein Urine Glucose (UA) Urine Ketones Urine Blood Urine Nitrate Urine Bilirubin Urine Urobilinogen Ur Leukocyte Esterase Urine WBC (Auto) Urine RBC (Auto) Ur Squamous Epith Cells Amorphous Sediment Urine Bacteria Ur Random Creatinine Ur Random Sodium Urine Microalbumin 20.4 H Stool Occult Blood Negative Influenza Typ A,B (EIA) 10/05/17 10/05/17 11:20 14:28 WBC RBC Hgb Hct MCV MCH MCHC RDW Plt Count MPV Neut % (Auto) Lymph % (Auto) [place] % (Auto) Eos % (Auto) Baso % (Auto) Neut # Lymph # [place] # Eos # Baso # Neutrophils % (Manual) Band Neutrophils % Lymphocytes % (Manual) Monocytes % (Manual) Toxic Granulation Platelet Estimate RBC Morphology Retic Count APTT Puncture Site pCO2 pO2 HCO3 ABG pH ABG Total CO2 ABG O2 Saturation ABG Base Excess Jose R Test ABG Potassium A-a O2 Difference Respiratory Index Glucose Lactate FiO2 Sodium Potassium Chloride Carbon Dioxide Anion Gap BUN Creatinine Est GFR ( Amer) Est GFR (Non-Af Amer) POC Glucose (mg/dL) 125 H Random Glucose Calcium Magnesium Iron TIBC % Saturation Ferritin Total Bilirubin AST ALT Alkaline Phosphatase Total Protein Albumin Globulin Albumin/Globulin Ratio Vitamin B12 Folate Arterial Blood Potassium Urine Color Urine Clarity Urine pH Ur Specific [place] Urine Protein Urine Glucose (UA) Urine Ketones Urine Blood Urine Nitrate Urine Bilirubin Urine Urobilinogen Ur Leukocyte Esterase Urine WBC (Auto) Urine RBC (Auto) Ur Squamous Epith Cells Amorphous Sediment Urine Bacteria Ur Random Creatinine 24.9 Ur Random Sodium 52 Urine Microalbumin Stool Occult Blood Influenza Typ A,B (EIA) Assessment & Plan - Assessment and Plan (Free Text) Assessment: 67F admitted with pneumonia and ARF; sx consulted r/o cholecystitis Plan: asymptomatic from a GI/abdominal standpoint tolerating diet unlikely acute cholecystitis - findings likely fuels sales representative of acute biliary contraction during the US process no surgical intervention planned d/w Dr Don Cobian, PGY3
[2017-10-05] MEDS ORDERED: Vancomycin 500mg/D5W 100 ml 500 MG/100 ML BAG IVPB ONE (16:00)
--- NOTE | 2017-10-05 16:23 | US ---
PROCEDURE: Ultrasound of the Bladder HISTORY: post-void residual volume? COMPARISON: None available. TECHNIQUE: Sonographic evaluation of the bladder was performed. FINDINGS: The urinary bladder is normal in appearance without wall thickening or intraluminal debris. No calculus or gross mass lesion. No free fluid in pelvis. Bilateral ureteral jets are visualized on color flow imaging. Prevoid Volume: 277 cc. Post void residual: 24 cc. IMPRESSION: Small postvoid residual.
--- NOTE | 2017-10-05 19:15 | CP.PCM.CON ---
History of Present Illness - History of Present Illness History of Present Illness: 67 yo F w/ pmh of htn, presented to ED with new onset chest pain; found to have large R sided pneumonia, renal insufficiency for which nephrology being consulted; Patient reports R sided chest pain started ~6 days ago, worsened by breathing; otherwise denies shortness of breath; started taking naproxen 2-3 times per day for the pain but previously was not using any oral pain meds; patient also was having decreased appetite since past few days and had not been taking anti-htn med since past 3 days; Otherwise, patient denies any difficulty urinating or feeling of incomplete bladder evacuation; urinates once per night; reports some mild dysuria lately; Patient denies any nausea, vomiting or diarrhea (actually has chronic constipation); Review of Systems - Constitutional Constitutional: Anorexia - EENT Eyes: absent: Change in Vision Nose/Mouth/Throat: absent: Nasal Discharge, Sore Throat - Cardiovascular Cardiovascular: As Per HPI Additional comments: occasional palpitations; - Respiratory Respiratory: Cough - Gastrointestinal Gastrointestinal: Constipation - Genitourinary Genitourinary: As Per HPI - Musculoskeletal Musculoskeletal: Arthralgias - Neurological Neurological: absent: Headaches Past Patient History - Past Medical History & Family History Past Medical History?: Yes Pertinent Family History: Denies family history of kidney disease; - Past Social History Smoking Status: Never Smoked - CARDIAC Hx Hypertension: Yes - MUSCULOSKELETAL/RHEUMATOLOGICAL Hx Falls: Yes (WEAKNESS ON THE KNEES) - PSYCHIATRIC Hx Substance Use: No - SURGICAL HISTORY Hx Hysterectomy: Yes - ANESTHESIA Hx Anesthesia: Yes Hx Anesthesia Reactions: No Hx Malignant Hyperthermia: No Has any member of the family had a problem w/ anesthesia?: No Meds Allergies/Adverse Reactions: Allergies Allergy/AdvReac Type Severity Reaction Status Date / Time No Known Allergies Allergy Unverified 10/04/17 17:42 - Medications Medications: Current Medications Acetaminophen (Tylenol 325mg Tab) 650 mg PO Q6 PRN PRN Reason: fever, pain Heparin Sodium (Porcine) (Heparin) 5,000 units SC Q8 [facility] Last Admin: 10/05/17 13:16 Dose: 5,000 units Azithromycin 500 mg/ Sodium (Chloride) 250 mls @ 250 mls/hr IVPB DAILY@2100 [facility] Ceftriaxone Sodium 1 gm/ (Sodium Chloride) 100 mls @ 100 mls/hr IVPB DAILY@ 2000 [facility] Sodium Chloride (Sodium Chloride 0.9%) 1,000 mls @ 50 mls/hr IV .Q20H [facility] Last Admin: 10/05/17 13:15 Dose: 50 mls/hr Pantoprazole Sodium (Protonix Ec Tab) 40 mg PO DAILY [facility] Last Admin: 10/05/17 10:31 Dose: 40 mg Saccharomyces Boulardii (Florastor) 250 mg PO BID [facility] Last Admin: 10/05/17 18:01 Dose: 250 mg Physical Exam - Constitutional Appears: Non-toxic, No Acute Distress - Head Exam Head Exam: NORMAL INSPECTION - Eye Exam Eye Exam: Normal appearance. absent: Scleral icterus - ENT Exam ENT Exam: Mucous Membranes Moist - Neck Exam Neck exam: Negative for: Lymphadenopathy - Respiratory Exam Respiratory Exam: absent: Respiratory Distress Additional comments: Markedly decreased breath sounds over R upper lung rodgers; - Cardiovascular Exam Cardiovascular Exam: RRR, +S1, +S2 Additional comments: no carotid bruits; faint b/l DP pulses; - GI/Abdominal Exam GI & Abdominal Exam: Soft. absent: Bruit, Distended, Tenderness - Extremities Exam Additional comments: no leg edema; - Neurological Exam Neurological exam: Alert, Oriented x3 - Psychiatric Exam Psychiatric exam: Normal Affect, Normal Mood - Skin Skin Exam: Warm Results - Vital Signs Recent Vital Signs: Last Vital Signs Temp 98.7 F 10/05/17 15:23 Pulse 63 10/05/17 16:00 Resp 20 10/05/17 15:23 BP 127/75 10/05/17 15:23 Pulse Ox 100 10/05/17 15:23 - Labs Result Diagrams: 10/05/17 07:54 10/05/17 07:54 Labs: Laboratory Results - last 24 hr 10/04/17 10/04/17 10/04/17 19:04 19:04 22:55 WBC RBC Hgb Hct MCV MCH MCHC RDW Plt Count MPV Neut % (Auto) Lymph % (Auto) [place] % (Auto) Eos % (Auto) Baso % (Auto) Neut # Lymph # [place] # Eos # Baso # Neutrophils % (Manual) 89 H Band Neutrophils % 3 H Lymphocytes % (Manual) 6 L Monocytes % (Manual) 2 Toxic Granulation Present Platelet Estimate Normal RBC Morphology Normal Retic Count APTT 30 Puncture Site pCO2 pO2 HCO3 ABG pH ABG Total CO2 ABG O2 Saturation ABG Base Excess Jose R Test ABG Potassium A-a O2 Difference Respiratory Index Glucose Lactate FiO2 Sodium 130 L Potassium 3.0 L Chloride 101 Carbon Dioxide 22 Anion Gap 10 BUN 39 H Creatinine 2.3 H Est GFR ( Amer) 26 Est GFR (Non-Af Amer) 21 POC Glucose (mg/dL) Random Glucose 168 H Calcium 8.4 L Magnesium Iron TIBC % Saturation Ferritin Total Bilirubin 1.0 AST 26 ALT 19 Alkaline Phosphatase 352 H Total Protein 6.2 L Albumin 3.0 L Globulin 3.1 Albumin/Globulin Ratio 1.0 Vitamin B12 Folate Procalcitonin Arterial Blood Potassium Urine Color Urine Clarity Urine pH Ur Specific [place]once Urine Protein Urine Glucose (UA) Urine Ketones Urine Blood Urine Nitrate Urine Bilirubin Urine Urobilinogen Ur Leukocyte Esterase Urine WBC (Auto) Urine RBC (Auto) Ur Squamous Epith Cells Amorphous Sediment Urine Bacteria Ur Random Creatinine Ur Random Sodium Urine Microalbumin Stool Occult Blood Mycoplasma pneumon IgM 10/05/17 10/05/17 10/05/17 06:54 06:54 07:40 WBC RBC Hgb Hct MCV MCH MCHC RDW Plt Count MPV Neut % (Auto) Lymph % (Auto) [place] % (Auto) Eos % (Auto) Baso % (Auto) Neut # Lymph # [place] # Eos # Baso # Neutrophils % (Manual) Band Neutrophils % Lymphocytes % (Manual) Monocytes % (Manual) Toxic Granulation Platelet Estimate RBC Morphology Retic Count APTT Puncture Site pCO2 pO2 HCO3 ABG pH ABG Total CO2 ABG O2 Saturation ABG Base Excess Jose R Test ABG Potassium A-a O2 Difference Respiratory Index Glucose Lactate FiO2 Sodium Potassium Chloride Carbon Dioxide Anion Gap BUN Creatinine Est GFR ( Amer) Est GFR (Non-Af Amer) POC Glucose (mg/dL) 86 Random Glucose Calcium Magnesium Iron TIBC % Saturation Ferritin Total Bilirubin AST ALT Alkaline Phosphatase Total Protein Albumin Globulin Albumin/Globulin Ratio Vitamin B12 Folate Procalcitonin 6.89 H Arterial Blood Potassium Urine Color Urine Clarity Urine pH Ur Specific [place] Urine Protein Urine Glucose (UA) Urine Ketones Urine Blood Urine Nitrate Urine Bilirubin Urine Urobilinogen Ur Leukocyte Esterase Urine WBC (Auto) Urine RBC (Auto) Ur Squamous Epith Cells Amorphous Sediment Urine Bacteria Ur Random Creatinine Ur Random Sodium Urine Microalbumin Stool Occult Blood Mycoplasma pneumon IgM Negative 10/05/17 10/05/17 10/05/17 07:50 07:54 07:54 WBC 23.8 H RBC 3.44 L Hgb 10.0 L Hct 29.3 L MCV 85.2 MCH 29.1 MCHC 34.1 RDW 13.6 Plt Count 161 MPV 11.1 Neut % (Auto) 89.4 H Lymph % (Auto) 4.7 L [place] % (Auto) 4.2 Eos % (Auto) 1.3 Baso % (Auto) 0.4 Neut # 21.2 H Lymph # 1.1 [place] # 1.0 H Eos # 0.3 Baso # 0.1 Neutrophils % (Manual) 89 H Band Neutrophils % 6 H Lymphocytes % (Manual) 3 L Monocytes % (Manual) 2 Toxic Granulation Platelet Estimate Normal RBC Morphology Normal Retic Count 0.5 APTT Puncture Site pCO2 pO2 HCO3 ABG pH ABG Total CO2 ABG O2 Saturation ABG Base Excess Jose R Test ABG Potassium A-a O2 Difference Respiratory Index Glucose Lactate FiO2 Sodium Potassium Chloride Carbon Dioxide Anion Gap BUN Creatinine Est GFR ( Amer) Est GFR (Non-Af Amer) POC Glucose (mg/dL) Random Glucose Calcium Magnesium Iron < 10 L TIBC 197 L % Saturation 5.07 L Ferritin Total Bilirubin AST ALT Alkaline Phosphatase Total Protein Albumin Globulin Albumin/Globulin Ratio Vitamin B12 Folate Procalcitonin Arterial Blood Potassium Urine Color Yellow Urine Clarity Clear Urine pH 5.0 Ur Specific [place] 1.005 Urine Protein Negative Urine Glucose (UA) Normal Urine Ketones Negative Urine Blood 1+ H Urine Nitrate Negative Urine Bilirubin Negative Urine Urobilinogen Normal Ur Leukocyte Esterase Neg Urine WBC (Auto) 2 Urine RBC (Auto) 5 H Ur Squamous Epith Cells < 1 Amorphous Sediment Rare H Urine Bacteria Rare Ur Random Creatinine Ur Random Sodium Urine Microalbumin Stool Occult Blood Mycoplasma pneumon IgM 10/05/17 10/05/17 10/05/17 07:54 08:23 11:10 WBC RBC Hgb Hct MCV MCH MCHC RDW Plt Count MPV Neut % (Auto) Lymph % (Auto) [place] % (Auto) Eos % (Auto) Baso % (Auto) Neut # Lymph # [place] # Eos # Baso # Neutrophils % (Manual) Band Neutrophils % Lymphocytes % (Manual) Monocytes % (Manual) Toxic Granulation Platelet Estimate RBC Morphology Retic Count APTT Puncture Site Lra pCO2 31 L pO2 46 L HCO3 20.0 L ABG pH 7.38 ABG Total CO2 19.3 L ABG O2 Saturation 90.1 L ABG Base Excess -5.7 L Jose R Test Pos ABG Potassium 3.5 L A-a O2 Difference 65.0 Respiratory Index 1.4 Glucose 79 Lactate 0.6 L FiO2 21.0 Sodium 138 143.0 Potassium 4.3 Chloride 108 H 117.0 H Carbon Dioxide 24 Anion Gap 10 BUN 31 H Creatinine 2.0 H Est GFR ( Amer) 30 Est GFR (Non-Af Amer) 25 POC Glucose (mg/dL) Random Glucose 85 Calcium 8.3 L Magnesium 1.9 Iron TIBC % Saturation Ferritin 131.0 Total Bilirubin 0.8 AST 25 ALT 26 Alkaline Phosphatase 309 H Total Protein 5.8 L Albumin 2.7 L Globulin 3.1 Albumin/Globulin Ratio 0.9 L Vitamin B12 419 Folate 17.2 Procalcitonin Arterial Blood Potassium 3.5 L Urine Color Urine Clarity Urine pH Ur Specific [place] Urine Protein Urine Glucose (UA) Urine Ketones Urine Blood Urine Nitrate Urine Bilirubin Urine Urobilinogen Ur Leukocyte Esterase Urine WBC (Auto) Urine RBC (Auto) Ur Squamous Epith Cells Amorphous Sediment Urine Bacteria Ur Random Creatinine Ur Random Sodium Urine Microalbumin Stool Occult Blood Negative Mycoplasma pneumon IgM 10/05/17 10/05/17 10/05/17 11:10 11:20 14:28 WBC RBC Hgb Hct MCV MCH MCHC RDW Plt Count MPV Neut % (Auto) Lymph % (Auto) [place] % (Auto) Eos % (Auto) Baso % (Auto) Neut # Lymph # [place] # Eos # Baso # Neutrophils % (Manual) Band Neutrophils % Lymphocytes % (Manual) Monocytes % (Manual) Toxic Granulation Platelet Estimate RBC Morphology Retic Count APTT Puncture Site pCO2 pO2 HCO3 ABG pH ABG Total CO2 ABG O2 Saturation ABG Base Excess Jose R Test ABG Potassium A-a O2 Difference Respiratory Index Glucose Lactate FiO2 Sodium Potassium Chloride Carbon Dioxide Anion Gap BUN Creatinine Est GFR ( Amer) Est GFR (Non-Af Amer) POC Glucose (mg/dL) 125 H Random Glucose Calcium Magnesium Iron TIBC % Saturation Ferritin Total Bilirubin AST ALT Alkaline Phosphatase Total Protein Albumin Globulin Albumin/Globulin Ratio Vitamin B12 Folate Procalcitonin Arterial Blood Potassium Urine Color Urine Clarity Urine pH Ur Specific [place] Urine Protein Urine Glucose (UA) Urine Ketones Urine Blood Urine Nitrate Urine Bilirubin Urine Urobilinogen Ur Leukocyte Esterase Urine WBC (Auto) Urine RBC (Auto) Ur Squamous Epith Cells Amorphous Sediment Urine Bacteria Ur Random Creatinine 24.9 Ur Random Sodium 52 Urine Microalbumin 20.4 H Stool Occult Blood Mycoplasma pneumon IgM - Imaging and Cardiology US - abdomen Status: Image reviewed by me Additional comment: Renal US - mildly increased renal cortical echogenicity b/l Assessment & Plan (1) ELIZABETH (acute kidney injury) Assessment and Plan: ELIZABETH on CKD; exact baseline renal function unknown; however, agree with primary team that patient likely has some pre-renal insult in the setting of decreased PO intake while being ill and exacerbated by loss of renal autoregulation due to being on NSAID (reports not using her BP over previous 3 days - ARB/thiazide - which would have been further contributory to ELIZABETH); -agree with continuing IVF w/ NS at 125 cc/hr -continue to hold home BP meds -avoid nephrotoxic insults -checking urine Na, urea, creatinine Status: Acute (2) CKD (chronic kidney disease) Assessment and Plan: Renal US showing mildly increased renal cortical echogenicity which is consistent with some degree of CKD; non-albuminuric kidney disease with no evidence of reflux nephropathy (normal post-void residual volume on bladder US) ; likely some degree of renovascular disease in the setting of htn; -checking random urine protein and creatinine (to look for non-albumin proteinuria) -checking PTH and vitamin D 25-OH levels Status: Acute (3) HTN (hypertension) Assessment and Plan: BP at lower end of normal; continue to hold anti-htn meds for now; Status: Acute (4) Anemia Assessment and Plan: With profound iron deficiency superimposed on anemia of renal/chronic disease; -holding off on starting IV iron in the setting of sepsis until negative blood cultures obtained Status: Acute (5) Pneumonia Assessment and Plan: On ceftriaxone and zithromax, no renal dose adjustment needed; received single dose of vanco today; will check random level in am; if below therapeutic range, should redose vanco tomorrow; Status: Acute (6) Renal cyst Assessment and Plan: 3 small simple cysts seen, no need for further workup at this time; Status: Acute - Assessment and Plan (Free Text) Assessment: Thank you for allowing us to participate in the care of your patient; we will f/ u closely;
[2017-10-05 20:08] LABS: ABG ALLEN TEST PO; ARTERIAL BLOOD HGB O2 SAT 95.7 % (95.0-98.0); DRAW SITE RR; HHB 0.5 % (0.0-5.0); METHEMOGLOBIN 1.7 % (0.0-3.0)
[2017-10-05] MEDS: Azithromycin 500 MG in Sodium Chloride 0.9% 250 ML IVPB SCH (22:26)
[2017-10-06 07:41] LABS: BASO % 0.1 % (0.0-2.0); EOS # 0.5 K/uL (0.0-0.7); EOS % 2.9 % (0.0-4.0); HEMATOCRIT 29.2 % (34.0-47.0); LYMPH # 1.7 K/uL (1.0-4.3); MEAN CELL VOLUME 84.6 fL (81.0-99.0); MEAN CORPUSCULAR HEMOGLOBIN 28.6 pg (27.0-31.0); MEAN CORPUSCULAR HGB CONC 33.8 g/dL (33.0-37.0); MEAN PLATELET VOLUME 10.8 fL (7.2-11.7); MONO # 1.1 K/uL (0.0-0.8); MONO % 6.3 % (0.0-10.0); RED CELL DISTRIBUTION WIDTH 14.6 % (11.5-14.5); WHITE BLOOD COUNT 17.1 K/uL (4.8-10.8)
[2017-10-06 08:05] LABS: VANCOMYCIN RANDOM 6.39 ug/mL
[2017-10-06 08:10] LABS: BILIRUBIN,TOTAL 0.3 mg/dL (0.2-1.3); CALCIUM 7.9 mg/dl (8.6-10.4); MAGNESIUM 1.6 mg/dL (1.6-2.3); POTASSIUM 3.8 mmol/L (3.6-5.2); TOTAL PROTEIN 5.9 g/dL (6.3-8.3)
[2017-10-06 08:13] LABS: ALB/GLOB RATIO 0.8 (1.0-2.1)
[2017-10-06 08:17] LABS: VITAMIN D 25 OH TOTAL 20.9 NG/ML (30.0-100.0)
[2017-10-06] MEDS: Pantoprazole 40 mg EC Tab PO SCH (09:05)
[2017-10-06] MEDS: Saccharomyces Boulardi 250 mg Cap PO SCH ×2 (09:05→17:24)
--- NOTE | 2017-10-06 09:25 | CP.PCM.PN ---
<Bolivar Chaudhry - Last Filed: 10/06/17 19:25> Subjective - Date & Time of Evaluation Date of Evaluation: 10/06/17 Time of Evaluation: 07:05 - Subjective Subjective: Medicine progress note for Dr. Ryan Dia Patient seen and examined at bedside. Patient reports feeling a little bit better. She is still coughing but is bringing up very little sputum. The back and chest pain with coughing remains. Last BM was yesterday. Patient denies any other acute complaints. Objective - Vital Signs/Intake and Output Vital Signs (last 24 hours): Temp Pulse Resp BP Pulse Ox 98.2 F 70 20 135/81 97 10/06/17 08:09 10/06/17 08:09 10/06/17 08:09 10/06/17 08:09 10/06/17 08:09 Intake and Output: 10/06/17 10/06/17 06:59 18:59 Intake Total 800 Balance 800 - Medications Medications: Current Medications Acetaminophen (Tylenol 325mg Tab) 650 mg PO Q6 PRN PRN Reason: fever, pain Heparin Sodium (Porcine) (Heparin) 5,000 units SC Q8 [facility] Last Admin: 10/06/17 05:07 Dose: 5,000 units Azithromycin 500 mg/ Sodium (Chloride) 250 mls @ 250 mls/hr IVPB DAILY@2100 [facility] Last Admin: 10/05/17 22:26 Dose: 250 mls/hr Ceftriaxone Sodium 1 gm/ (Sodium Chloride) 100 mls @ 100 mls/hr IVPB DAILY@ 2000 [facility] Last Admin: 10/05/17 20:25 Dose: 100 mls/hr Sodium Chloride (Sodium Chloride 0.9%) 1,000 mls @ 50 mls/hr IV .Q20H [facility] Last Admin: 10/05/17 13:15 Dose: 50 mls/hr Pantoprazole Sodium (Protonix Ec Tab) 40 mg PO DAILY [facility] Last Admin: 10/06/17 09:05 Dose: 40 mg Saccharomyces Boulardii (Florastor) 250 mg PO BID [facility] Last Admin: 10/06/17 09:05 Dose: 250 mg - Labs Labs: 10/06/17 07:18 10/06/17 07:18 APTT 30 SECONDS (21-34) 10/04/17 22:55 - Constitutional Appears: No Acute Distress - Head Exam Head Exam: ATRAUMATIC, NORMOCEPHALIC - Eye Exam Eye Exam: EOMI, Normal appearance - ENT Exam ENT Exam: Mucous Membranes Moist - Respiratory Exam Respiratory Exam: Clear to Ausculation Bilateral, NORMAL BREATHING PATTERN. absent: Rales, Rhonchi, Wheezes - Cardiovascular Exam Cardiovascular Exam: REGULAR RHYTHM, +S1, +S2 - GI/Abdominal Exam GI & Abdominal Exam: Soft, Normal Bowel Sounds. absent: Tenderness - Extremities Exam Extremities Exam: Normal Inspection - Neurological Exam Neurological Exam: Alert, Awake, Oriented x3 - Psychiatric Exam Psychiatric exam: Normal Affect, Normal Mood - Skin Skin Exam: Dry, Intact, Normal Color, Warm Assessment and Plan - Assessment and Plan (Free Text) Plan: 1. Community Acquired Pneumonia * Pneumonia severity index 117 - Risk class IV, 8.2-9.3% mortality, Hospitalization recommended * Patient is Hypoxic on morning ABG * pH 7.39 PO2 46 PCO2 31 HCO3 20 * F/u ABG has pO2 84 * CXR on admission - Right upper lobe pneumonia * Repeat CXR on 10/05 shows worsening right upper lobe pneumonia and suspect loculated pleural effuson * Leukocytosis downtrending * Antibiotics: Azithromycin 500 mg IV daily, Ceftriaxone 1 gm IV daily, Florastor 250mg BID * One dose of Vancomycin 500mg IVPB ordered yesterday * F/U urine s pneumo, urine legionella * mycoplasma negative * F/U blood cx, urine cx---prelim neg after 24 hrs * procalcitonin 6.89 * CT scan: Right upper lobe pneumonia, small pericadial effusion and bilateral small pleural effusions, worse on the right. Calcified granulomas in the lungs and calcified mediastinal and hilar lymph nodes, likely a sequela of remote granulomatous infection. 4mm noncalcified nodule in the right middle lobe. Incompletely imaged and characterized bilateral kidney lesion 2. History of Hypertension * Held Irbesartan/HCTZ due to renal insufficiency * Monitor for now 3. Renal insufficiency * BUN/Cr - 28/2.0 * Baseline Renal function unknown but has evidence of likely CKD * Patient has a hx of Naproxen use this past week, avoid NSAIDs and other nephrotoxic medications at this time * Continue NS @125cc/hr * Renal US: 5mm non-obtructing stone in upper pole, no hydronephrosis; incidental finding of gallbladder sludge, GBW thickening, pericholecystic fluid. 1 cm renal cyst in upper pole of right kidney. * FeNa 3.0% suggesting Intrinsic cause of renal insufficiency * Urine microalbumin 20.4 * F/U total protein, random * Bladder US--small post void residual 24 cc * Nephrology on consult, Dr Austin, help appreciated 4. Anemia * Hgb 9.9 * Baseline hemoglobin unknown * Stool occult negative * Anemia workup * Iron <10 * TIBC 197 * % saturation 5.07 * Retic count 0.5 * Ferritin 131 * Vitamin B12 419 * Folate 17.2 * F/U haptoglobin 5. Small Pericardial Effusion * Incidental finding noted on CT chest * F/u echo ordered for further evaluation * Will consider cardiology consult 6. 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 No intervention planned. Prophylactic Measures Protonix 40 mg PO daily Heparin 5000U SC Q8 [facility] Healthy Diet Ensure protein supplements Will need follow up outpatient CT w.o. contrast in 6 months to reassess pulmonary nodule Will need outpatient ultrasound in 6-12 months for renal cyst in right upper pole Will need outpatient colonoscopy due to anemia Case DW Dr. Ryan Chaudhry PGY-1 <Terry Dia - Last Filed: 10/06/17 20:02> Objective - Vital Signs/Intake and Output Vital Signs (last 24 hours): Temp Pulse Resp BP Pulse Ox 98.5 F 68 20 163/93 H 95 10/06/17 16:10 10/06/17 18:00 10/06/17 16:10 10/06/17 16:10 10/06/17 16:10 Intake and Output: 10/06/17 10/07/17 18:59 06:59 Intake Total 400 Balance 400 - Medications Medications: Current Medications Acetaminophen (Tylenol 325mg Tab) 650 mg PO Q6 PRN PRN Reason: fever, pain Amlodipine Besylate (Norvasc) 5 mg PO DAILY [facility] Last Admin: 10/06/17 16:04 Dose: 5 mg Ferrous Sulfate (Feosol) 325 mg PO BID [facility] Last Admin: 10/06/17 17:24 Dose: 325 mg Heparin Sodium (Porcine) (Heparin) 5,000 units SC Q8 [facility] Last Admin: 10/06/17 13:39 Dose: 5,000 units Azithromycin 500 mg/ Sodium (Chloride) 250 mls @ 250 mls/hr IVPB DAILY@2100 [facility] Last Admin: 10/05/17 22:26 Dose: 250 mls/hr Ceftriaxone Sodium 1 gm/ (Sodium Chloride) 100 mls @ 100 mls/hr IVPB DAILY@ 2000 [facility] Last Admin: 10/06/17 19:38 Dose: 100 mls/hr Sodium Chloride (Sodium Chloride 0.9%) 1,000 mls @ 50 mls/hr IV .Q20H [facility] Last Admin: 10/06/17 16:06 Dose: Not Given Pantoprazole Sodium (Protonix Ec Tab) 40 mg PO DAILY [facility] Last Admin: 10/06/17 09:05 Dose: 40 mg Saccharomyces Boulardii (Florastor) 250 mg PO BID [facility] Last Admin: 10/06/17 17:24 Dose: 250 mg - Labs Labs: 10/06/17 07:18 10/06/17 07:18 APTT 30 SECONDS (21-34) 10/04/17 22:55 Attending/Attestation - Attestation I have personally seen and examined this patient.: Yes I have fully participated in the care of the patient.: Yes I have reviewed all pertinent clinical information, including history, physical exam and plan: Yes Notes (Text): 10/06/17 19:51 Patient was seen and examined at 4:25 PM 10/06/17 569 A. Exam, assessment and plan were thoroughly gone over with the resident. Also on Exam: Respiratory: Left Basilar faint inspiratory crackles Assessments: 1). RUL Pneumonia Azithromycin, Ceftriaxone F/U Urine Legionella and S. pnuemoniae F/U consult ID Dr. Severino 2). Acute on Chronic Kidney Disease Continue IVF NS at 50 ml/hour Likely secondary to decreased PO intake due to lack of appetite from RUL Pneumonia: patient encourage to eat and drink plenty of fluids Also contributing are NSAID use and Irbesartan/HCTZ all of which are being held U/S Renal shows medical renal disease Nephrology Dr. Ragland 3). Anemia Likely Secondary to Iron Deficiency Iron 325 mg PO 2x/day She will need outpatient colonoscopy Stool Occult Blood Negative 4). Renal Cysts Repeat U/S in 6 months 5). Gall Bladder Sludge, Wall thickening, Pericholecystic Fluid on U/S Renal Evaluated by Surgery Dr. Ochoa's Team and they feel that this is secondary to contraction during U/S and NOT Acute Cholecystitis NO Barron's Sign on my exam 10/06/17 Monitor 6). Percardial Effusion F/U 2D Echocardiogram 7). RML Lung Nodules She will need outpatient CT Chest without contrast in 6 to 12 months 8). Hx HTN HOLDING Irbesartan/HCTZ home medication considering the renal function Norvasc 5 mg PO 1x/day started at 6 PM 10/06/17 due to elevation in Blood Pressure 9). Prophylaxis Acetaminophen Heparin Florastor Protonix Ensure Shakes 3x/day: I spoke at length with son who was present at the time of my exam and translated in [place] that we needed for patient to eat and take in plenty of fluids due to the Renal Function and to help fight the RUL Pneumonia. Nursing Communication placed to encourage Fluid Intake. Terry Dia D.O.
--- NOTE | 2017-10-06 15:36 | CP.PCM.PN ---
Objective - Vital Signs/Intake and Output Vital Signs (last 24 hours): Temp Pulse Resp BP Pulse Ox 98.2 F 70 20 135/81 97 10/06/17 08:09 10/06/17 08:09 10/06/17 08:09 10/06/17 08:09 10/06/17 08:09 Intake and Output: 10/06/17 10/06/17 06:59 18:59 Intake Total 800 Balance 800 - Medications Medications: Current Medications Acetaminophen (Tylenol 325mg Tab) 650 mg PO Q6 PRN PRN Reason: fever, pain Heparin Sodium (Porcine) (Heparin) 5,000 units SC Q8 [facility] Last Admin: 10/06/17 13:39 Dose: 5,000 units Azithromycin 500 mg/ Sodium (Chloride) 250 mls @ 250 mls/hr IVPB DAILY@2100 [facility] Last Admin: 10/05/17 22:26 Dose: 250 mls/hr Ceftriaxone Sodium 1 gm/ (Sodium Chloride) 100 mls @ 100 mls/hr IVPB DAILY@ 2000 [facility] Last Admin: 10/05/17 20:25 Dose: 100 mls/hr Sodium Chloride (Sodium Chloride 0.9%) 1,000 mls @ 50 mls/hr IV .Q20H [facility] Last Admin: 10/05/17 13:15 Dose: 50 mls/hr Pantoprazole Sodium (Protonix Ec Tab) 40 mg PO DAILY [facility] Last Admin: 10/06/17 09:05 Dose: 40 mg Saccharomyces Boulardii (Florastor) 250 mg PO BID [facility] Last Admin: 10/06/17 09:05 Dose: 250 mg - Labs Labs: 10/06/17 07:18 10/06/17 07:18 APTT 30 SECONDS (21-34) 10/04/17 22:55 Assessment and Plan (1) ELIZABETH (acute kidney injury) Status: Acute (2) CKD (chronic kidney disease) Status: Acute (3) HTN (hypertension) Status: Acute (4) Anemia Status: Acute (5) Pneumonia Status: Acute (6) Renal cyst Status: Acute
[2017-10-06] MEDS: Sodium Chloride 0.9% 1,000 ML IV SCH ×2 (16:04→16:06)
[2017-10-06 17:30] LABS: CREATININE, RANDOM URINE 38.8 mg/dL
[2017-10-06] MEDS: Azithromycin 500 MG in Sodium Chloride 0.9% 250 ML IVPB SCH (22:03)
--- NOTE | 2017-10-07 07:28 | CP.PCM.PN ---
<Bolivar Chaudhry - Last Filed: 10/07/17 16:24> Subjective - Date & Time of Evaluation Date of Evaluation: 10/07/17 Time of Evaluation: 07:00 - Subjective Subjective: Medicine progress note for Dr. Ryan Dia Patient seen and examined at bedside. Patient reports feeling a bit better. She says that the back pain with coughing is now improved. Patient states that her cough is reduced as well and she is not producing very much sputum. Objective - Vital Signs/Intake and Output Vital Signs (last 24 hours): Temp Pulse Resp BP Pulse Ox 99.3 F 85 20 163/92 H 95 10/07/17 00:38 10/07/17 00:38 10/07/17 00:38 10/07/17 00:38 10/07/17 00:38 - Medications Medications: Current Medications Acetaminophen (Tylenol 325mg Tab) 650 mg PO Q6 PRN PRN Reason: fever, pain Amlodipine Besylate (Norvasc) 5 mg PO DAILY [facility] Last Admin: 10/06/17 16:04 Dose: 5 mg Ferrous Sulfate (Feosol) 325 mg PO BID [facility] Last Admin: 10/06/17 17:24 Dose: 325 mg Heparin Sodium (Porcine) (Heparin) 5,000 units SC Q8 [facility] Last Admin: 10/07/17 05:21 Dose: 5,000 units Azithromycin 500 mg/ Sodium (Chloride) 250 mls @ 250 mls/hr IVPB DAILY@2100 [facility] Last Admin: 10/06/17 22:03 Dose: 250 mls/hr Ceftriaxone Sodium 1 gm/ (Sodium Chloride) 100 mls @ 100 mls/hr IVPB DAILY@ 2000 [facility] Last Admin: 10/06/17 19:38 Dose: 100 mls/hr Sodium Chloride (Sodium Chloride 0.9%) 1,000 mls @ 50 mls/hr IV .Q20H [facility] Last Admin: 10/06/17 16:06 Dose: Not Given Pantoprazole Sodium (Protonix Ec Tab) 40 mg PO DAILY [facility] Last Admin: 10/06/17 09:05 Dose: 40 mg Saccharomyces Boulardii (Florastor) 250 mg PO BID [facility] Last Admin: 10/06/17 17:24 Dose: 250 mg - Labs Labs: 10/06/17 07:18 10/06/17 07:18 APTT 30 SECONDS (21-34) 10/04/17 22:55 - Constitutional Appears: No Acute Distress - Head Exam Head Exam: ATRAUMATIC, NORMOCEPHALIC - Eye Exam Eye Exam: EOMI, Normal appearance - ENT Exam ENT Exam: Mucous Membranes Moist - Respiratory Exam Respiratory Exam: Clear to Ausculation Bilateral, NORMAL BREATHING PATTERN. absent: Rales, Rhonchi, Wheezes - Cardiovascular Exam Cardiovascular Exam: REGULAR RHYTHM, +S1, +S2 - GI/Abdominal Exam GI & Abdominal Exam: Soft, Normal Bowel Sounds. absent: Tenderness - Extremities Exam Extremities Exam: absent: Pedal Edema - Neurological Exam Neurological Exam: Alert, Awake, Oriented x3 - Psychiatric Exam Psychiatric exam: Normal Affect, Normal Mood - Skin Skin Exam: Dry, Intact, Normal Color, Warm Assessment and Plan - Assessment and Plan (Free Text) Plan: Community Acquired Pneumonia * Pneumonia severity index 117 - Risk class IV, 8.2-9.3% mortality, Hospitalization recommended * Patient is Hypoxic on morning ABG * pH 7.39 PO2 46 PCO2 31 HCO3 20 * F/u ABG has pO2 84 * CXR on admission - Right upper lobe pneumonia * Repeat CXR on 10/05 shows worsening right upper lobe pneumonia and suspect loculated pleural effuson * Leukocytosis downtrending * Antibiotics: Azithromycin 500 mg IV daily, Ceftriaxone 1 gm IV daily, Florastor 250mg BID * One dose of Vancomycin 500mg IVPB ordered * mycoplasma and legionella negative * F/U blood cx, urine cx---prelim neg after 24 hrs * procalcitonin 6.89 * CT scan: Right upper lobe pneumonia, small pericadial effusion and bilateral small pleural effusions, worse on the right. Calcified granulomas in the lungs and calcified mediastinal and hilar lymph nodes, likely a sequela of remote granulomatous infection. 4mm noncalcified nodule in the right middle lobe. Incompletely imaged and characterized bilateral kidney lesion * Dr. Severino ID consult, help appreciated * Per Dr. Severino, patient placed on contact precautions with AFBx3 ordered R/o Tuberculosis Will treat as pneumonia for now but will rule out due to risk factors Isolation precautions Nebulized albuterol and acetylcysteine combination at 7 AM daily from 10/08- Cultures to be taken half an hour after treatments f/u AFB x 3 10/08-10/10 f/u sputum samples x 3 10/08-10/10 f/u mycobacterium PCR samples x 3 10/08-10/10 History of Hypertension * Held Irbesartan/HCTZ due to renal insufficiency * Norvasc 5 mg PO daily * Monitor for now Renal insufficiency * BUN/Cr - 28/2.0 * Baseline Renal function unknown but has evidence of likely CKD * Patient has a hx of Naproxen use this past week, avoid NSAIDs and other nephrotoxic medications at this time * Continue NS @50cc/hr * Renal US: 5mm non-obtructing stone in upper pole, no hydronephrosis; incidental finding of gallbladder sludge, GBW thickening, pericholecystic fluid. 1 cm renal cyst in upper pole of right kidney. * FeNa 3.0% suggesting Intrinsic cause of renal insufficiency * Urine microalbumin 20.4 * Random total protein elevated at 35 * Bladder US--small post void residual 24 cc * Nephrology on consult, Dr Austin, help appreciated Anemia * Hgb 9.9 * Baseline hemoglobin unknown * Stool occult negative * Anemia workup * Iron <10 * TIBC 197 * % saturation 5.07 * Retic count 0.5 * Ferritin 131 * Vitamin B12 419 * Folate 17.2 * F/U haptoglobin Small Pericardial Effusion * Incidental finding noted on CT chest * F/u echo ordered for further evaluation * Will consider cardiology consult Abnormal Gallbladder finding, R/O acute cholecystitis * Gallbladder sludge, GBW thickening, pericholecystic fluid noted on renal US report * Difficult to assess if patient is having +[place] sign as inspiratory effort is poor 2/2 pleuritic chest pain * T bili within normal range, LFTs within normal range * Surgery on consult, Dr Ochoa, help appreciated * Per surgery, unlikely acute cholecystitis - 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 No intervention planned. Prophylactic Measures Protonix 40 mg PO daily Heparin 5000U SC Q8 Heart Healthy Diet Ensure protein supplements Will need follow up outpatient CT w.o. contrast in 6 months to reassess pulmonary nodule Will need outpatient ultrasound in 6-12 months for renal cyst in right upper pole Will need outpatient colonoscopy due to anemia Case DW Dr. Ryan Chaudhry PGY1 <Terry Dia - Last Filed: 10/07/17 18:44> Objective - Vital Signs/Intake and Output Vital Signs (last 24 hours): Temp Pulse Resp BP Pulse Ox 98.1 F 72 20 130/80 94 L 10/07/17 15:35 10/07/17 17:55 10/07/17 15:35 10/07/17 15:35 10/07/17 15:35 Intake and Output: 10/07/17 10/07/17 06:59 18:59 Intake Total 560 Balance 560 - Medications Medications: Current Medications Acetaminophen (Tylenol 325mg Tab) 650 mg PO Q6 PRN PRN Reason: fever, pain Acetylcysteine (Acetylcysteine 20%) 4 ml INH DAILY [facility] Stop: 10/11/17 07:01 Albuterol Sulfate (Albuterol 0.083% Inhal Kimberli (2.5 Mg/3 Ml) Ud) 2.5 mg INH DAILY [facility] Stop: 10/11/17 07:01 Amlodipine Besylate (Norvasc) 5 mg PO DAILY [facility] Last Admin: 10/07/17 09:45 Dose: 5 mg Ferrous Sulfate (Feosol) 325 mg PO BID [facility] Last Admin: 10/07/17 17:10 Dose: 325 mg Heparin Sodium (Porcine) (Heparin) 5,000 units SC Q8 [facility] Last Admin: 10/07/17 14:45 Dose: 5,000 units Azithromycin 500 mg/ Sodium (Chloride) 250 mls @ 250 mls/hr IVPB DAILY@2100 [facility] Last Admin: 10/06/17 22:03 Dose: 250 mls/hr Ceftriaxone Sodium 1 gm/ (Sodium Chloride) 100 mls @ 100 mls/hr IVPB DAILY@ 2000 [facility] Last Admin: 10/06/17 19:38 Dose: 100 mls/hr Sodium Chloride (Sodium Chloride 0.9%) 1,000 mls @ 50 mls/hr IV .Q20H [facility] Last Admin: 10/07/17 18:05 Dose: 50 mls/hr Pantoprazole Sodium (Protonix Ec Tab) 40 mg PO DAILY [facility] Last Admin: 10/07/17 09:46 Dose: 40 mg Saccharomyces Boulardii (Florastor) 250 mg PO BID [facility] Last Admin: 10/07/17 17:10 Dose: 250 mg - Labs Labs: 10/07/17 07:47 10/07/17 07:47 APTT 30 SECONDS (21-34) 10/04/17 22:55 Attending/Attestation - Attestation I have personally seen and examined this patient.: Yes I have fully participated in the care of the patient.: Yes I have reviewed all pertinent clinical information, including history, physical exam and plan: Yes Notes (Text): 10/07/17 18:39 Hospitalist Progress Note Patient was seen and examined at 5:00 PM 10/07/17 566. Exam, assessment and plan were thoroughly gone over with the resident. Also on Exam: Respiratory: Left Basilar faint inspiratory crackles are not longer present Assessments: 1). RUL Pneumonia vs TB Azithromycin, Ceftriaxone Urine Legionella is negative Mycoplasma is negative PPD placed today and this will need to be followed up on before noon Sputum Induction with Mucomyst/Albuterol and send Sputum for culture, AFB stain , and Mycobacterium PCR 10/08 through 10/10 Currently on Respiratory Isolation F/U consult ID Dr. Severino 2). Acute on Chronic Kidney Disease Continue IVF NS at 50 ml/hour Likely secondary to decreased PO intake due to lack of appetite from RUL Pneumonia: patient encourage to eat and drink plenty of fluids Also contributing are NSAID use and Irbesartan/HCTZ all of which are being held U/S Renal shows medical renal disease Nephrology Dr. Ragland 3). Anemia Likely Secondary to Iron Deficiency Iron 325 mg PO 2x/day She will need outpatient colonoscopy Stool Occult Blood Negative 4). Renal Cysts Repeat U/S in 6 months 5). Gall Bladder Sludge, Wall thickening, Pericholecystic Fluid on U/S Renal Evaluated by Surgery Dr. Ochoa's Team and they feel that this is secondary to contraction during U/S and NOT Acute Cholecystitis NO Barron's Sign on my exam 10/06/17 Monitor 6). Percardial Effusion F/U 2D Echocardiogram report 7). RML Lung Nodules She will need outpatient CT Chest without contrast in 6 to 12 months 8). Hx HTN HOLDING Irbesartan/HCTZ home medication considering the renal function Norvasc 5 mg PO 1x/day started at 6 PM 10/06/17 due to elevation in Blood Pressure. It is currently under control 9). Prophylaxis Acetaminophen Heparin Florastor Protonix Ensure Shakes 3x/day: I spoke at length with son who was present at the time of my exam 10/06 and 10/07 and translated in Cambodian that we needed for patient to eat and take in plenty of fluids due to the Renal Function and to help fight the RUL Pneumonia. Son has been bringing food from home and she has been eating it. I spoke with Nurse Deepthi to make sure that the patient is being given the Ensure Shakes ordered 10/06 Terry Dia D.O. 10/07/17 18:43
[2017-10-07 08:14] LABS: BASO # 0.1 K/uL (0.0-0.2); BASO % 0.4 % (0.0-2.0); EOS # 0.7 K/uL (0.0-0.7); EOS % 4.5 % (0.0-4.0); HEMATOCRIT 29.3 % (34.0-47.0); LYMPH # 2.1 K/uL (1.0-4.3); LYMPH % 14.4 % (20.0-40.0); MEAN CELL VOLUME 84.6 fL (81.0-99.0); MEAN CORPUSCULAR HEMOGLOBIN 28.7 pg (27.0-31.0); MEAN CORPUSCULAR HGB CONC 33.9 g/dL (33.0-37.0); MEAN PLATELET VOLUME 10.4 fL (7.2-11.7); MONO # 0.8 K/uL (0.0-0.8); MONO % 5.3 % (0.0-10.0); NRBC % 0.1 % (0.0-2.0); PLATELET COUNT 223 K/uL (130-400); RED CELL DISTRIBUTION WIDTH 14.3 % (11.5-14.5); WHITE BLOOD COUNT 14.6 K/uL (4.8-10.8)
[2017-10-07 08:24] LABS: BILIRUBIN,TOTAL 0.9 mg/dL (0.2-1.3); CALCIUM 8.4 mg/dl (8.6-10.4); MAGNESIUM 1.6 mg/dL (1.6-2.3); POTASSIUM 4.1 mmol/L (3.6-5.2); TOTAL PROTEIN 6.3 g/dL (6.3-8.3)
[2017-10-07 08:27] LABS: ALB/GLOB RATIO 0.9 (1.0-2.1)
[2017-10-07 09:24] LABS: EOSINOPHIL 8 % (0-4); METAMYELOCYTE 1 % (0-0); MYELOCYTE 2 % (0-0); NEUTROPHIL 62 % (50-75); REACTIVE LYMPHOCYTES 1 % (0-0); TOTAL CELLS COUNTED 100
[2017-10-07] MEDS: Saccharomyces Boulardi 250 mg Cap PO SCH ×2 (09:45→17:10)
[2017-10-07] MEDS: Pantoprazole 40 mg EC Tab PO SCH (09:46)
[2017-10-07] MEDS ORDERED: Tuberculin 5 Units/0.1 ml Inj ID ONE (10:15)
--- NOTE | 2017-10-07 10:47 | CP.PCM.PN ---
Subjective - Date & Time of Evaluation Date of Evaluation: 10/07/17 Time of Evaluation: 09:55 - Subjective Subjective: Nephrology progress note for Dr Austin's service. Patient states she is feeling much better. The right sided chest pain and the abdominal pain has improved. Patient is able to tolerate po, denies nausea, vomiting or diarrhea. States the cough has improved. No fever or chills. Patient is currently in isolation for possible TB, pending complete work up. Objective - Vital Signs/Intake and Output Vital Signs (last 24 hours): Temp Pulse Resp BP Pulse Ox 97.7 F 69 20 148/81 96 10/07/17 07:46 10/07/17 07:46 10/07/17 07:46 10/07/17 07:46 10/07/17 07:46 - Medications Medications: Current Medications Acetaminophen (Tylenol 325mg Tab) 650 mg PO Q6 PRN PRN Reason: fever, pain Amlodipine Besylate (Norvasc) 5 mg PO DAILY [facility] Last Admin: 10/07/17 09:45 Dose: 5 mg Ferrous Sulfate (Feosol) 325 mg PO BID [facility] Last Admin: 10/07/17 09:45 Dose: 325 mg Heparin Sodium (Porcine) (Heparin) 5,000 units SC Q8 [facility] Last Admin: 10/07/17 05:21 Dose: 5,000 units Azithromycin 500 mg/ Sodium (Chloride) 250 mls @ 250 mls/hr IVPB DAILY@2100 [facility] Last Admin: 10/06/17 22:03 Dose: 250 mls/hr Ceftriaxone Sodium 1 gm/ (Sodium Chloride) 100 mls @ 100 mls/hr IVPB DAILY@ 2000 [facility] Last Admin: 10/06/17 19:38 Dose: 100 mls/hr Sodium Chloride (Sodium Chloride 0.9%) 1,000 mls @ 50 mls/hr IV .Q20H [facility] Last Admin: 10/06/17 16:06 Dose: Not Given Pantoprazole Sodium (Protonix Ec Tab) 40 mg PO DAILY [facility] Last Admin: 10/07/17 09:46 Dose: 40 mg Saccharomyces Boulardii (Florastor) 250 mg PO BID [facility] Last Admin: 10/07/17 09:45 Dose: 250 mg - Labs Labs: 10/07/17 07:47 10/07/17 07:47 APTT 30 SECONDS (21-34) 10/04/17 22:55 - Constitutional Appears: No Acute Distress, Chronically Ill - Head Exam Head Exam: ATRAUMATIC, NORMAL INSPECTION, NORMOCEPHALIC - Eye Exam Eye Exam: Normal appearance, PERRL. absent: Scleral icterus - ENT Exam ENT Exam: Mucous Membranes Moist - Neck Exam Neck Exam: Normal Inspection - Respiratory Exam Respiratory Exam: Clear to Ausculation Bilateral, NORMAL BREATHING PATTERN. absent: Rales, Rhonchi, Wheezes, Respiratory Distress, Stridor - Cardiovascular Exam Cardiovascular Exam: REGULAR RHYTHM, +S1, +S2, Murmur - GI/Abdominal Exam GI & Abdominal Exam: Soft, Normal Bowel Sounds. absent: Distended, Firm, Guarding, Rigid, Tenderness - Extremities Exam Extremities Exam: Normal Inspection. absent: Pedal Edema - Back Exam Back Exam: NORMAL INSPECTION - Neurological Exam Neurological Exam: Alert, Awake, Oriented x3 - Psychiatric Exam Psychiatric exam: Normal Affect, Normal Mood - Skin Skin Exam: Dry, Intact, Warm Assessment and Plan (1) ELIZABETH (acute kidney injury) Assessment & Plan: ELIZABETH on CKD with unknown baseline creatinine. Likely pre-renal superimposed with recent prescription of ARB. Renal function continues to improve. Ok with gentle hydration Patient has non-albuminuric proteinuria, likely due to gromerular damage, r/o MM. MM work up ordered, including 24 hours urine specimen analysis. Status: Acute (2) Anemia Assessment & Plan: Iron deficiency anemia superimposed with anemia due to CKD/chronic disease. Continue with po iron. Status: Acute (3) CKD (chronic kidney disease) Assessment & Plan: Renal US showing mildly increased renal cortical echogenicity which is consistent with some degree of CKD; non-albuminuric kidney disease with no evidence of reflux nephropathy with normal post void on bladder u/s, Random protein with over 902 mg/g of protein. 24 hour urine protein ordered, including spep, upep, and free light chain kinase. PTH pending. Status: Acute (4) HTN (hypertension) Assessment & Plan: Fluctuating with Norvasc of 5 mg po daily, consider increasing Norvasc if bp remains uncontrolled. Status: Acute (5) Pneumonia Assessment & Plan: On Zithromax and Rocephin On isolation for possible TB, pending work up. Status: Acute (6) Renal cyst Assessment & Plan: 3 small renal cysts, no further work up needed. Status: Acute - Assessment and Plan (Free Text) Assessment: Patient seen, examined and case discussed with Dr Austin.
--- NOTE | 2017-10-07 15:25 | CP.PCM.CON ---
History of Present Illness - History of Present Illness History of Present Illness: dictated Past Patient History - Past Medical History & Family History Past Medical History?: Yes - Past Social History Smoking Status: Never Smoked - CARDIAC Hx Hypertension: Yes - MUSCULOSKELETAL/RHEUMATOLOGICAL Hx Arthritis: Yes (KNEE) - PSYCHIATRIC Hx Substance Use: No - SURGICAL HISTORY Hx Hysterectomy: Yes - ANESTHESIA Hx Anesthesia: Yes Hx Anesthesia Reactions: No Hx Malignant Hyperthermia: No Has any member of the family had a problem w/ anesthesia?: No Meds Allergies/Adverse Reactions: Allergies Allergy/AdvReac Type Severity Reaction Status Date / Time No Known Allergies Allergy Unverified 10/04/17 17:42 - Medications Medications: Current Medications Acetaminophen (Tylenol 325mg Tab) 650 mg PO Q6 PRN PRN Reason: fever, pain Amlodipine Besylate (Norvasc) 5 mg PO DAILY [facility] Last Admin: 10/07/17 09:45 Dose: 5 mg Ferrous Sulfate (Feosol) 325 mg PO BID [facility] Last Admin: 10/07/17 09:45 Dose: 325 mg Heparin Sodium (Porcine) (Heparin) 5,000 units SC Q8 [facility] Last Admin: 10/07/17 14:45 Dose: 5,000 units Azithromycin 500 mg/ Sodium (Chloride) 250 mls @ 250 mls/hr IVPB DAILY@2100 [facility] Last Admin: 10/06/17 22:03 Dose: 250 mls/hr Ceftriaxone Sodium 1 gm/ (Sodium Chloride) 100 mls @ 100 mls/hr IVPB DAILY@ 2000 [facility] Last Admin: 10/06/17 19:38 Dose: 100 mls/hr Sodium Chloride (Sodium Chloride 0.9%) 1,000 mls @ 50 mls/hr IV .Q20H [facility] Last Admin: 10/06/17 16:06 Dose: Not Given Pantoprazole Sodium (Protonix Ec Tab) 40 mg PO DAILY [facility] Last Admin: 10/07/17 09:46 Dose: 40 mg Saccharomyces Boulardii (Florastor) 250 mg PO BID [facility] Last Admin: 10/07/17 09:45 Dose: 250 mg Results - Vital Signs Recent Vital Signs: Last Vital Signs Temp 97.7 F 10/07/17 07:46 Pulse 69 10/07/17 12:35 Resp 20 10/07/17 07:46 BP 148/81 10/07/17 07:46 Pulse Ox 96 10/07/17 12:35 - Labs Result Diagrams: 10/07/17 07:47 10/07/17 07:47 Labs: Laboratory Results - last 24 hr 10/05/17 10/06/17 10/06/17 04:00 16:44 17:17 WBC RBC Hgb Hct MCV MCH MCHC RDW Plt Count MPV Neut % (Auto) Lymph % (Auto) [place] % (Auto) Eos % (Auto) Baso % (Auto) Neut # Lymph # [place] # Eos # Baso # Neutrophils % (Manual) Band Neutrophils % Lymphocytes % (Manual) Reactive Lymphs % Monocytes % (Manual) Eosinophils % (Manual) Metamyelocytes % Myelocytes % Platelet Estimate Hypochromasia (manual) Poikilocytosis (manual Anisocytosis (manual) Target Cells Sodium Potassium Chloride Carbon Dioxide Anion Gap BUN Creatinine Est GFR ( Amer) Est GFR (Non-Af Amer) POC Glucose (mg/dL) 140 H Random Glucose Calcium Magnesium Total Bilirubin AST ALT Alkaline Phosphatase Total Protein Albumin Globulin Albumin/Globulin Ratio Ur Random Creatinine 38.8 U Random Total Protein 35.0 H Ur L.pneumophila Ag Negative 10/06/17 10/07/17 10/07/17 21:04 06:55 07:47 WBC 14.6 H RBC 3.46 L Hgb 9.9 L Hct 29.3 L MCV 84.6 MCH 28.7 MCHC 33.9 RDW 14.3 Plt Count 223 MPV 10.4 Neut % (Auto) 75.4 H Lymph % (Auto) 14.4 L [place] % (Auto) 5.3 Eos % (Auto) 4.5 H Baso % (Auto) 0.4 Neut # 11.0 H Lymph # 2.1 [place] # 0.8 Eos # 0.7 Baso # 0.1 Neutrophils % (Manual) 62 Band Neutrophils % 5 H Lymphocytes % (Manual) 16 L Reactive Lymphs % 1 H Monocytes % (Manual) 5 Eosinophils % (Manual) 8 H Metamyelocytes % 1 H Myelocytes % 2 H Platelet Estimate Normal Hypochromasia (manual) Slight Poikilocytosis (manual Slight Anisocytosis (manual) Slight Target Cells Slight Sodium Potassium Chloride Carbon Dioxide Anion Gap BUN Creatinine Est GFR ( Amer) Est GFR (Non-Af Amer) POC Glucose (mg/dL) 111 H 86 Random Glucose Calcium Magnesium Total Bilirubin AST ALT Alkaline Phosphatase Total Protein Albumin Globulin Albumin/Globulin Ratio Ur Random Creatinine U Random Total Protein Ur L.pneumophila Ag 10/07/17 10/07/17 07:47 11:19 WBC RBC Hgb Hct MCV MCH MCHC RDW Plt Count MPV Neut % (Auto) Lymph % (Auto) [place] % (Auto) Eos % (Auto) Baso % (Auto) Neut # Lymph # [place] # Eos # Baso # Neutrophils % (Manual) Band Neutrophils % Lymphocytes % (Manual) Reactive Lymphs % Monocytes % (Manual) Eosinophils % (Manual) Metamyelocytes % Myelocytes % Platelet Estimate Hypochromasia (manual) Poikilocytosis (manual Anisocytosis (manual) Target Cells Sodium 138 Potassium 4.1 Chloride 106 Carbon Dioxide 25 Anion Gap 10 BUN 23 H Creatinine 1.5 H Est GFR ( Amer) 42 Est GFR (Non-Af Amer) 35 POC Glucose (mg/dL) 140 H Random Glucose 92 Calcium 8.4 L Magnesium 1.6 Total Bilirubin 0.9 AST 31 ALT 27 Alkaline Phosphatase 259 H Total Protein 6.3 Albumin 3.0 L Globulin 3.3 Albumin/Globulin Ratio 0.9 L Ur Random Creatinine U Random Total Protein Ur L.pneumophila Ag
[2017-10-07] MEDS: Sodium Chloride 0.9% 1,000 ML IV SCH (18:05)
[2017-10-07] MEDS: Azithromycin 500 MG in Sodium Chloride 0.9% 250 ML IVPB SCH (21:21)
[2017-10-08] MEDS: Sodium Chloride 0.9% 1,000 ML IV SCH ×2 (01:00→20:43)
--- NOTE | 2017-10-08 04:46 | CON ---
DATE: INFECTIOUS DISEASE CONSULTATION REQUESTED BY: James Rodríguez MD. HISTORY OF PRESENT ILLNESS: This patient is a 67-year-old female. She presented with pain in the right back and she has been from [facility]. She just arrived here in June, has been taking her pain and blood pressure medicines, and she has been having some breathing trouble, shortness of breath, and dry cough. She denies any blood in the phlegm, but she says when she blows her nose, she does get small amount of blood, but nothing to worry about and she also has constipation. PAST MEDICAL HISTORY: Hypertension. FAMILY HISTORY: Negative. SOCIAL HISTORY: Negative for smoking or drinking or any drug abuse. She lived all her life in [facility], came here in June. ALLERGIES: SHE IS NOT ALLERGIC TO ANY MEDICINE. MEDICATIONS: She was on irbesartan-hydrochlorothiazide and also on Naprosyn, she takes for pain. She does not give any history of tuberculosis, but [place] here with fevers. Denied any chills. No ear, nose problems. Denied any chest pain. No shortness of breath, but pain on the back and breathing was worsening according to her. No nausea, vomiting or abdominal pain. No constipation. Denies any dysuria, frequency, or urgency. Does complain of back pain. No neurological weakness. She also complains of fatigue. Her appetite is otherwise okay. She denies any weight loss. She is not allergic to any medicine. Surgery reported was hysterectomy. On medications here, we are giving her Tylenol, Norvasc, Zithromax, Rocephin, ferrous sulfate, heparin, Protonix and she is on Florastor and sodium and IV fluids. PHYSICAL EXAMINATION: VITAL SIGNS: On examination, I find her temperature is 97.7, pulse 69, blood pressure 148/81, and respirations are 20. I see when she came in her temperature was 102.8, but she has been afebrile since she has been here. HEENT: Head is atraumatic, normocephalic. She is in isolation. Pupils are reacting to light. Throat: No congestion. No thrush seen. NECK: Supple. JVP is flat. She is trying to eat. LUNGS: Clear. Decreased breath sounds on right lung. HEART: S1, S2 is regular. ABDOMEN: Soft, nontender. No guarding. No rigidity present. EXTREMITIES: Have no edema, clubbing or cyanosis. LABORATORY DATA: The PPD was ordered and I told her we need sputum cultures. I think her son was in the room or relative was in the room. We explained to her in [place]. White count is 14.6, hemoglobin 9.9, hematocrit 29.3, platelet count is 223,000. Her chemistry: Sodium 138, potassium 4.1, chloride is 106, CO2 is 25, BUN is 23, creatinine is 1.5. She has renal insufficiency. Mycoplasma, influenza and urine Legionella are negative. Vancomycin random level was 6.39. She got vancomycin dose. UA shows blood 1+, wbc 2, rbc 5. Urine microalbumin is 20.4. She is hypertensive. She also had an ABG done, which shows CO2 is 21.3, saturation 99.5, pH of 7.41. Lactate level is 0.6. She had a chest x-ray and a CT chest was done. Chest x-ray shows worsening right upper lobe pneumonia and suspect loculated pleural effusion. ASSESSMENT AND PLAN: At this time, she is eating well, but they are giving fluids for renal insufficiency, she was being monitored. We will get sputum AFB and PPD has been ordered, and also sputum for normal culture and we will follow and also we will get a Gold QuantiFERON test done anyway. We will follow. Since she has a right upper lobe infiltrate, we are ruling out TB and treating her for a community-acquired pneumonia and we will follow up with the primary medical doctor. Ekaterina Severino MD
--- NOTE | 2017-10-08 06:49 | CP.PCM.PN ---
<Bolivar Chaudhry - Last Filed: 10/08/17 16:32> Subjective - Date & Time of Evaluation Date of Evaluation: 10/08/17 Time of Evaluation: 09:00 - Subjective Subjective: Medicine progress note for Dr. Ryan Dia Patient seen and examined at bedside. Patient states that her right sided upper back and costal region pain is still there. She states that she is not coughing or producing much sputum at this time. Objective - Vital Signs/Intake and Output Vital Signs (last 24 hours): Temp Pulse Resp BP Pulse Ox 99.0 F 71 20 131/89 95 10/08/17 00:29 10/08/17 00:29 10/08/17 00:29 10/08/17 00:29 10/08/17 00:29 Intake and Output: 10/07/17 10/08/17 18:59 06:59 Intake Total 560 800 Balance 560 800 - Medications Medications: Current Medications Acetaminophen (Tylenol 325mg Tab) 650 mg PO Q6 PRN PRN Reason: fever, pain Acetylcysteine (Acetylcysteine 20%) 4 ml INH DAILY [facility] Stop: 10/11/17 07:01 Albuterol Sulfate (Albuterol 0.083% Inhal Kimberli (2.5 Mg/3 Ml) Ud) 2.5 mg INH DAILY [facility] Stop: 10/11/17 07:01 Amlodipine Besylate (Norvasc) 5 mg PO DAILY [facility] Last Admin: 10/07/17 09:45 Dose: 5 mg Ferrous Sulfate (Feosol) 325 mg PO BID [facility] Last Admin: 10/07/17 17:10 Dose: 325 mg Heparin Sodium (Porcine) (Heparin) 5,000 units SC Q8 [facility] Last Admin: 10/08/17 06:34 Dose: 5,000 units Azithromycin 500 mg/ Sodium (Chloride) 250 mls @ 250 mls/hr IVPB DAILY@2100 [facility] Last Admin: 10/07/17 21:21 Dose: 250 mls/hr Ceftriaxone Sodium 1 gm/ (Sodium Chloride) 100 mls @ 100 mls/hr IVPB DAILY@ 2000 [facility] Last Admin: 10/07/17 20:14 Dose: 100 mls/hr Sodium Chloride (Sodium Chloride 0.9%) 1,000 mls @ 50 mls/hr IV .Q20H [facility] Last Admin: 10/07/17 18:05 Dose: 50 mls/hr Pantoprazole Sodium (Protonix Ec Tab) 40 mg PO DAILY [facility] Last Admin: 10/07/17 09:46 Dose: 40 mg Saccharomyces Boulardii (Florastor) 250 mg PO BID [facility] Last Admin: 10/07/17 17:10 Dose: 250 mg - Labs Labs: 10/07/17 07:47 10/07/17 07:47 APTT 30 SECONDS (21-34) 10/04/17 22:55 - Constitutional Appears: No Acute Distress - Head Exam Head Exam: ATRAUMATIC, NORMOCEPHALIC - Eye Exam Eye Exam: EOMI, Normal appearance - ENT Exam ENT Exam: Mucous Membranes Moist - Respiratory Exam Respiratory Exam: Clear to Ausculation Bilateral. absent: Rales, Rhonchi, Wheezes - Cardiovascular Exam Cardiovascular Exam: REGULAR RHYTHM, +S1, +S2 - GI/Abdominal Exam GI & Abdominal Exam: Soft, Normal Bowel Sounds. absent: Tenderness - Extremities Exam Extremities Exam: absent: Pedal Edema, Tenderness - Neurological Exam Neurological Exam: Alert, Awake, Oriented x3 - Psychiatric Exam Psychiatric exam: Normal Affect, Normal Mood - Skin Skin Exam: Dry, Intact, Normal Color, Warm Assessment and Plan - Assessment and Plan (Free Text) Plan: Community Acquired Pneumonia * Pneumonia severity index 117 - Risk class IV, 8.2-9.3% mortality, Hospitalization recommended * Patient is Hypoxic on morning ABG * pH 7.39 PO2 46 PCO2 31 HCO3 20 * F/u ABG has pO2 84 * CXR on admission - Right upper lobe pneumonia * Repeat CXR on 10/05 shows worsening right upper lobe pneumonia and suspect loculated pleural effuson * Leukocytosis downtrending * Antibiotics: Azithromycin 500 mg IV daily, Ceftriaxone 1 gm IV daily, Florastor 250mg BID * One dose of Vancomycin 500mg IVPB ordered * mycoplasma and legionella negative * F/U blood cx, urine cx---prelim neg after 24 hrs * procalcitonin 6.89 * CT scan: Right upper lobe pneumonia, small pericadial effusion and bilateral small pleural effusions, worse on the right. Calcified granulomas in the lungs and calcified mediastinal and hilar lymph nodes, likely a sequela of remote granulomatous infection. 4mm noncalcified nodule in the right middle lobe. Incompletely imaged and characterized bilateral kidney lesion * Dr. Severino ID consult, help appreciated * Per Dr. Severino, patient placed on contact precautions with AFBx3 ordered R/o Tuberculosis Will treat as pneumonia for now but will rule out due to risk factors Isolation precautions Nebulized albuterol and acetylcysteine combination at 7 AM daily from 10/08- Cultures to be taken half an hour after treatments f/u AFB x 3 10/08-10/10 f/u sputum samples x 3 10/08-10/10 f/u mycobacterium PCR samples x 3 10/08-10/10 f/u PPD placed on right forearm approximately 11:35 AM on 10/07 f/u HIV AB / w. reflex f/u hepatitis panel History of Hypertension * Held Irbesartan/HCTZ due to renal insufficiency * Norvasc 5 mg PO daily * Monitor for now Renal insufficiency * BUN/Cr - 28/2.0 * Baseline Renal function unknown but has evidence of likely CKD * Patient has a hx of Naproxen use this past week, avoid NSAIDs and other nephrotoxic medications at this time * Continue NS @50cc/hr * Renal US: 5mm non-obtructing stone in upper pole, no hydronephrosis; incidental finding of gallbladder sludge, GBW thickening, pericholecystic fluid. 1 cm renal cyst in upper pole of right kidney. * FeNa 3.0% suggesting Intrinsic cause of renal insufficiency * Urine microalbumin 20.4 * Random total protein elevated at 35 * Bladder US--small post void residual 24 cc * Nephrology on consult, Dr Austin, help appreciated Anemia * Hgb 9.9 * Baseline hemoglobin unknown * Stool occult negative * Anemia workup * Iron <10 * TIBC 197 * % saturation 5.07 * Retic count 0.5 * Ferritin 131 * Vitamin B12 419 * Folate 17.2 * Haptoglobin elevated at 427 Small Pericardial Effusion * Incidental finding noted on CT chest * F/u echo ordered for further evaluation * Will consider cardiology consult Abnormal Gallbladder finding, R/O acute cholecystitis * Gallbladder sludge, GBW thickening, pericholecystic fluid noted on renal US report * Difficult to assess if patient is having +[place] sign as inspiratory effort is poor 2/2 pleuritic chest pain * T bili within normal range, LFTs within normal range * Surgery on consult, Dr Ochoa, help appreciated * Per surgery, unlikely acute cholecystitis - findings likely training representative of acute biliary contraction during the US process. No intervention planned. Prophylactic Measures Protonix 40 mg PO daily Heparin 5000U SC Q8 Heart Healthy Diet Ensure protein supplements Will need follow up outpatient CT w.o. contrast in 6 months to reassess pulmonary nodule Will need outpatient ultrasound in 6-12 months for renal cyst in right upper pole Will need outpatient colonoscopy due to anemia Case DW Dr. Ryan Chaudhry PGY-1 <Terry Dia - Last Filed: 10/08/17 17:50> Objective - Vital Signs/Intake and Output Vital Signs (last 24 hours): Temp Pulse Resp BP Pulse Ox 98.2 F 79 20 126/81 94 L 10/08/17 15:35 10/08/17 15:35 10/08/17 15:35 10/08/17 15:35 10/08/17 15:35 Intake and Output: 10/08/17 10/08/17 06:59 18:59 Intake Total 1500 660 Output Total 400 Balance 1100 660 - Medications Medications: Current Medications Acetaminophen (Tylenol 325mg Tab) 650 mg PO Q6 PRN PRN Reason: fever, pain Acetylcysteine (Acetylcysteine 20%) 4 ml INH RQD [facility] Last Admin: 10/08/17 07:27 Dose: 4 ml Albuterol Sulfate (Albuterol 0.083% Inhal Kimberli (2.5 Mg/3 Ml) Ud) 2.5 mg INH RQD [facility] Last Admin: 10/08/17 07:28 Dose: 2.5 mg Amlodipine Besylate (Norvasc) 5 mg PO DAILY [facility] Last Admin: 10/08/17 09:51 Dose: 5 mg Ferrous Sulfate (Feosol) 325 mg PO BID [facility] Last Admin: 10/08/17 09:51 Dose: 325 mg Heparin Sodium (Porcine) (Heparin) 5,000 units SC Q8 [facility] Last Admin: 10/08/17 13:51 Dose: 5,000 units Azithromycin 500 mg/ Sodium (Chloride) 250 mls @ 250 mls/hr IVPB DAILY@2100 [facility] Last Admin: 10/07/17 21:21 Dose: 250 mls/hr Ceftriaxone Sodium 1 gm/ (Sodium Chloride) 100 mls @ 100 mls/hr IVPB DAILY@ 2000 [facility] Last Admin: 10/07/17 20:14 Dose: 100 mls/hr Sodium Chloride (Sodium Chloride 0.9%) 1,000 mls @ 50 mls/hr IV .Q20H [facility] Last Admin: 10/08/17 01:00 Dose: Not Given Pantoprazole Sodium (Protonix Ec Tab) 40 mg PO DAILY [facility] Last Admin: 10/08/17 09:51 Dose: 40 mg Saccharomyces Boulardii (Florastor) 250 mg PO BID [facility] Last Admin: 10/08/17 09:51 Dose: 250 mg - Labs Labs: 10/08/17 08:31 10/08/17 08:31 APTT 30 SECONDS (21-34) 10/04/17 22:55 Attending/Attestation - Attestation I have personally seen and examined this patient.: Yes I have fully participated in the care of the patient.: Yes I have reviewed all pertinent clinical information, including history, physical exam and plan: Yes Notes (Text): 10/08/17 17:47 Hospitalist Progress Note Patient was seen and examined at 1:15 PM 10/08/17 566. Exam, assessment and plan were thoroughly gone over with the resident. Also on ROS: She is moving her bowels without incident Appetite has improved and she is eating and drinking the Ensure Shakes Cough is still present with occasional productive of small amount of white phlegm Also on Exam: Respiratory: CTA B/L NO R/R/W Assessments: 1). RUL Pneumonia vs TB Azithromycin, Ceftriaxone Urine Legionella is negative Plasma Mycoplasma is negative PPD placed 10/07/17 and this will need to be followed up on 10/09/17 before noon Sputum Induction with Mucomyst/Albuterol and send Sputum for culture, AFB stain , and Mycobacterium PCR 10/08 through 10/10 Currently on Respiratory Isolation Blood Culture 10/05/17 is negative to date Urine Culture 10/05/17 shows no growth F/U consult ID Dr. Severino 2). Acute on Chronic Kidney Disease Continue IVF NS at 50 ml/hour Likely secondary to decreased PO intake due to lack of appetite from RUL Pneumonia: patient encourage to eat and drink plenty of fluids Also contributing are NSAID use and Irbesartan/HCTZ all of which are being held U/S Renal shows medical renal disease F/U 24 hour Urine Collection Nephrology Dr. Ragland 3). Anemia Likely Secondary to Iron Deficiency Iron 325 mg PO 2x/day She will need outpatient colonoscopy Stool Occult Blood Negative 4). Renal Cysts Repeat U/S in 6 months 5). Gall Bladder Sludge, Wall thickening, Pericholecystic Fluid on U/S Renal Evaluated by Surgery Dr. Ochoa's Team and they feel that this is secondary to contraction during U/S and NOT Acute Cholecystitis NO Barron's Sign on my exam 10/06/17 Monitor 6). Percardial Effusion F/U 2D Echocardiogram report which is still not available 7). RML Lung Nodules She will need outpatient CT Chest without contrast in 6 to 12 months 8). Hx HTN HOLDING Irbesartan/HCTZ home medication considering the renal function Norvasc 5 mg PO 1x/day started at 6 PM 10/06/17 due to elevation in Blood Pressure. It is currently under control 9). Prophylaxis Acetaminophen Heparin Florastor Protonix Ensure Shakes 3x/day Terry Dia D.O.
[2017-10-08] MEDS ORDERED: Albuterol 0.083% Inhal Sol (2.5 mg/3 mL) UD INH SCH (07:00)
[2017-10-08] MEDS ORDERED: Acetylcysteine 20% Inhal Soln (4ml) INH SCH (07:00)
[2017-10-08] MEDS: Acetylcysteine 20% Inhal Soln (4ml) INH SCH (07:27)
[2017-10-08] MEDS: Albuterol 0.083% Inhal Sol (2.5 mg/3 mL) UD INH SCH (07:28)
[2017-10-08 08:46] LABS: BASO # 0.1 K/uL (0.0-0.2); BASO % 0.4 % (0.0-2.0); EOS # 0.6 K/uL (0.0-0.7); HEMATOCRIT 30.3 % (34.0-47.0); LYMPH # 2.4 K/uL (1.0-4.3); LYMPH % 17.3 % (20.0-40.0); MEAN CELL VOLUME 84.5 fL (81.0-99.0); MEAN CORPUSCULAR HEMOGLOBIN 28.4 pg (27.0-31.0); MEAN CORPUSCULAR HGB CONC 33.6 g/dL (33.0-37.0); MEAN PLATELET VOLUME 10.1 fL (7.2-11.7); MONO # 0.6 K/uL (0.0-0.8); MONO % 4.3 % (0.0-10.0); RED CELL DISTRIBUTION WIDTH 13.9 % (11.5-14.5); WHITE BLOOD COUNT 13.7 K/uL (4.8-10.8)
[2017-10-08 09:12] LABS: ALB/GLOB RATIO 0.9 (1.0-2.1); BILIRUBIN,TOTAL 0.4 mg/dL (0.2-1.3); CALCIUM 8.5 mg/dl (8.6-10.4); MAGNESIUM 1.6 mg/dL (1.6-2.3); POTASSIUM 4.1 mmol/L (3.6-5.2); TOTAL PROTEIN 6.8 g/dL (6.3-8.3)
[2017-10-08] MEDS: Pantoprazole 40 mg EC Tab PO SCH (09:51)
[2017-10-08] MEDS: Saccharomyces Boulardi 250 mg Cap PO SCH ×2 (09:51→18:23)
--- NOTE | 2017-10-08 19:03 | CP.PCM.PN ---
Subjective - Date & Time of Evaluation Date of Evaluation: 10/08/17 Time of Evaluation: 12:00 - Subjective Subjective: Patient reports feeling better, cough and pleuritic chest pain improved; Objective - Vital Signs/Intake and Output Vital Signs (last 24 hours): Temp Pulse Resp BP Pulse Ox 98.2 F 79 20 126/81 94 L 10/08/17 15:35 10/08/17 15:35 10/08/17 15:35 10/08/17 15:35 10/08/17 15:35 Intake and Output: 10/08/17 10/09/17 18:59 06:59 Intake Total 660 Balance 660 - Medications Medications: Current Medications Acetaminophen (Tylenol 325mg Tab) 650 mg PO Q6 PRN PRN Reason: fever, pain Acetylcysteine (Acetylcysteine 20%) 4 ml INH RQD REPLACED BY [facility] Last Admin: 10/08/17 07:27 Dose: 4 ml Albuterol Sulfate (Albuterol 0.083% Inhal Kimberli (2.5 Mg/3 Ml) Ud) 2.5 mg INH RQD REPLACED BY [facility] Last Admin: 10/08/17 07:28 Dose: 2.5 mg Amlodipine Besylate (Norvasc) 5 mg PO DAILY REPLACED BY [facility] Last Admin: 10/08/17 09:51 Dose: 5 mg Ferrous Sulfate (Feosol) 325 mg PO BID REPLACED BY [facility] Last Admin: 10/08/17 18:23 Dose: 325 mg Heparin Sodium (Porcine) (Heparin) 5,000 units SC Q8 REPLACED BY [facility] Last Admin: 10/08/17 13:51 Dose: 5,000 units Azithromycin 500 mg/ Sodium (Chloride) 250 mls @ 250 mls/hr IVPB DAILY@2100 REPLACED BY [facility] Last Admin: 10/07/17 21:21 Dose: 250 mls/hr Ceftriaxone Sodium 1 gm/ (Sodium Chloride) 100 mls @ 100 mls/hr IVPB DAILY@ 2000 [facility]PLACED [facility] Last Admin: 10/07/17 20:14 Dose: 100 mls/hr Sodium Chloride (Sodium Chloride 0.9%) 1,000 mls @ 50 mls/hr IV .Q20H REPLACED BY [facility] Last Admin: 10/08/17 01:00 Dose: Not Given Pantoprazole Sodium (Protonix Ec Tab) 40 mg PO DAILY REPLACED BY [facility] Last Admin: 10/08/17 09:51 Dose: 40 mg Saccharomyces Boulardii (Florastor) 250 mg PO BID REPLACED BY [facility] Last Admin: 10/08/17 18:23 Dose: 250 mg - Labs Labs: 10/08/17 08:31 10/08/17 08:31 APTT 30 SECONDS (21-34) 10/04/17 22:55 - Constitutional Appears: Non-toxic, No Acute Distress - Eye Exam Eye Exam: Normal appearance - ENT Exam ENT Exam: Mucous Membranes Moist - Respiratory Exam Respiratory Exam: Clear to Ausculation Bilateral. absent: Respiratory Distress - Cardiovascular Exam Cardiovascular Exam: RRR, +S1, +S2 - GI/Abdominal Exam GI & Abdominal Exam: Soft. absent: Distended, Tenderness - Extremities Exam Additional comments: no leg edema; - Neurological Exam Neurological Exam: Alert, Awake - Psychiatric Exam Psychiatric exam: Normal Affect, Normal Mood - Skin Skin Exam: Warm. absent: Cyanosis Assessment and Plan (1) ELIZABETH (acute kidney injury) Assessment & Plan: Likely some degree of ATN in the setting of poor PO intake and taking NSAIDS; renal function improving; agree with keeping on maintenance IVF (NS at 50 cc/hr) ; Status: Acute (2) CKD (chronic kidney disease) Assessment & Plan: Appears to relatively mild; exact baseline unclear but serum creat now down to 1.3; proteinuria likely due to acute tubular injury and should be re-checked as outpatient; -awaiting 24 hr urine for protein electrophoresis Status: Chronic (3) HTN (hypertension) Assessment & Plan: BP relatively controlled; agree with norvac 5; Status: Chronic (4) Anemia Assessment & Plan: Marked iron deficiency; will discuss with IV iron is appropriate in the setting of pneumonia and ruling out TB; Status: Acute (5) Pneumonia Assessment & Plan: On ceftriaxone and zithromax, no renal dose adjustment needed; Status: Acute (6) Renal cyst Status: Chronic
--- NOTE | 2017-10-08 21:57 | CARD ---
APPROVED REPORT EXAM: Two-dimensional and M-mode echocardiogram with Doppler and color Doppler. Other Information Quality : AverageRhythm : NSR INDICATION Pericardial Effusion RISK FACTORS Hypertension M-Mode DIMENSIONS RVDd1.37 (2.1-3.2cm)Left Atrium (MM)3.97 (2.5-4.0cm) IVSd0.88 (0.7-1.1cm)Aortic Root2.80 (2.2-3.7cm) LVDd5.14 (4.0-5.6cm)Aortic Cusp Exc.1.85 (1.5-2.0cm) PWd0.98 (0.7-1.1cm)FS (%) 41 % LVDs3.03 (2.0-3.8cm)LVEF (%)72 (>50%) Aortic Valve AoV Peak Vgwpwsno991.8cm/Zion Peak GR.10mmHg Mitral Valve MV E Zdwjnaik49.2cm/sMV A Jdpmsnml070.4cm/sE/A ratio1.0 TDI E/Lateral E'0.0E/Medial E'0.0 Tricuspid Valve TR Peak [id number]/sTR Peak [id number] <Conclusion> Left ventricle: thickness: normal; size: normal; overall ejection fraction: 65%: diastolic filling pressures: elevated Mitral valve: annulus: normal: leaflets: normal: excursion: normal; no significant trans-mitral gradient: no significant incompetence: left atrium: normal Aortic valve: leaflets: calcified thickening: excursion: normal; no significant trans-aortic gradient: mild incompetence: aortic root: normal Right sided Structures: Pulmonary valve: normal; no significant incompetence; Tricuspid valve: normal;mild incompetence: Intra-cardiac hemodynamics: pulmonary systolic pressures: 45mmHg; central venous pressures: normal Mild concentric pericardial effusion
[2017-10-08] MEDS: Azithromycin 500 MG in Sodium Chloride 0.9% 250 ML IVPB SCH (22:46)
[2017-10-09 04:05] LABS: TOTAL PROTEIN, SERUM 5.9 g/dL (6.1-8.1)
--- NOTE | 2017-10-09 07:04 | CP.PCM.PN ---
<Bolivar Chaudhry - Last Filed: 10/09/17 16:16> Subjective - Date & Time of Evaluation Date of Evaluation: 10/09/17 Time of Evaluation: 09:15 - Subjective Subjective: Medicine progress note for Dr. Ryan Dia Patient seen and examined at bedside. Patient reports reduced cough and phlegm this morning. Patient is complaining of poor sleep. Patient denies other acute complaints. She is breathing well, eating well, and currently has no issues with urination or defecation. Objective - Vital Signs/Intake and Output Vital Signs (last 24 hours): Temp Pulse Resp BP Pulse Ox 99.7 F H 69 20 146/76 98 10/09/17 00:15 10/09/17 00:15 10/09/17 00:15 10/09/17 00:15 10/09/17 00:15 Intake and Output: 10/08/17 10/09/17 18:59 06:59 Intake Total 1560 400 Balance 1560 400 - Medications Medications: Current Medications Acetaminophen (Tylenol 325mg Tab) 650 mg PO Q6 PRN PRN Reason: fever, pain Acetylcysteine (Acetylcysteine 20%) 4 ml INH RQD [facility] Last Admin: 10/08/17 07:27 Dose: 4 ml Albuterol Sulfate (Albuterol 0.083% Inhal Kimberli (2.5 Mg/3 Ml) Ud) 2.5 mg INH RQD [facility] Last Admin: 10/08/17 07:28 Dose: 2.5 mg Amlodipine Besylate (Norvasc) 5 mg PO DAILY [facility] Last Admin: 10/08/17 09:51 Dose: 5 mg Ferrous Sulfate (Feosol) 325 mg PO BID [facility] Last Admin: 10/08/17 18:23 Dose: 325 mg Heparin Sodium (Porcine) (Heparin) 5,000 units SC Q8 [facility] Last Admin: 10/09/17 05:11 Dose: 5,000 units Azithromycin 500 mg/ Sodium (Chloride) 250 mls @ 250 mls/hr IVPB DAILY@2100 [facility] Last Admin: 10/08/17 22:46 Dose: 250 mls/hr Ceftriaxone Sodium 1 gm/ (Sodium Chloride) 100 mls @ 100 mls/hr IVPB DAILY@ 2000 [facility] Last Admin: 10/08/17 20:54 Dose: 100 mls/hr Sodium Chloride (Sodium Chloride 0.9%) 1,000 mls @ 50 mls/hr IV .Q20H [facility] Last Admin: 10/08/17 01:00 Dose: Not Given Pantoprazole Sodium (Protonix Ec Tab) 40 mg PO DAILY [facility] Last Admin: 10/08/17 09:51 Dose: 40 mg Saccharomyces Boulardii (Florastor) 250 mg PO BID [facility] Last Admin: 10/08/17 18:23 Dose: 250 mg - Labs Labs: 10/08/17 08:31 10/08/17 08:31 APTT 30 SECONDS (21-34) 10/04/17 22:55 - Constitutional Appears: No Acute Distress - Head Exam Head Exam: ATRAUMATIC, NORMOCEPHALIC - Eye Exam Eye Exam: EOMI, Normal appearance - ENT Exam ENT Exam: Mucous Membranes Moist - Respiratory Exam Respiratory Exam: Clear to Ausculation Bilateral. absent: Rales, Rhonchi, Wheezes - Cardiovascular Exam Cardiovascular Exam: REGULAR RHYTHM, +S1, +S2 - GI/Abdominal Exam GI & Abdominal Exam: Soft, Normal Bowel Sounds. absent: Tenderness - Extremities Exam Extremities Exam: absent: Pedal Edema, Tenderness - Neurological Exam Neurological Exam: Alert, Awake, Oriented x3 - Psychiatric Exam Psychiatric exam: Normal Affect, Normal Mood - Skin Skin Exam: Dry, Intact, Normal Color, Warm Assessment and Plan - Assessment and Plan (Free Text) Plan: Community Acquired Pneumonia * Pneumonia severity index 117 - Risk class IV, 8.2-9.3% mortality, Hospitalization recommended * Patient is Hypoxic on morning ABG * pH 7.39 PO2 46 PCO2 31 HCO3 20 * F/u ABG has pO2 84 * CXR on admission - Right upper lobe pneumonia * Repeat CXR on 10/05 shows worsening right upper lobe pneumonia and suspect loculated pleural effuson * Leukocytosis downtrending * Antibiotics: Azithromycin 500 mg IV daily, Ceftriaxone 1 gm IV daily, Florastor 250mg BID * One dose of Vancomycin 500mg IVPB ordered * mycoplasma and legionella negative * F/U blood cx, urine cx---prelim neg after 24 hrs * procalcitonin 6.89 * CT scan: Right upper lobe pneumonia, small pericadial effusion and bilateral small pleural effusions, worse on the right. Calcified granulomas in the lungs and calcified mediastinal and hilar lymph nodes, likely a sequela of remote granulomatous infection. 4mm noncalcified nodule in the right middle lobe. Incompletely imaged and characterized bilateral kidney lesion * Dr. Severino ID consult, help appreciated * Per Dr. Severino, patient placed on contact precautions with AFBx3 ordered * 10/09/17: CXR PA/Lat views: Impression: Partially resolved right upper lobe infiltrate. Small right pleural effusion and possible very small left pleural effusion. R/o Tuberculosis Will treat as pneumonia for now but will rule out due to risk factors Isolation precautions AFBx3 from 10/07/17 Nebulized albuterol and acetylcysteine combination at 7 AM daily from 10/08- Cultures to be taken half an hour after treatments f/u AFB x 3 10/08-10/10 f/u sputum samples x 3 10/08-10/10 f/u mycobacterium PCR samples x 3 10/08-10/10 PPD placed on right forearm approximately 11:35 AM on 10/07--negative f/u HIV AB 1/ w. reflex Hepatitis panel negative History of Hypertension * Held Irbesartan/HCTZ due to renal insufficiency * Norvasc 5 mg PO daily * Monitor for now Renal insufficiency * BUN/Cr - 28/2.0 * Baseline Renal function unknown but has evidence of likely CKD * Patient has a hx of Naproxen use this past week, avoid NSAIDs and other nephrotoxic medications at this time * Continue NS @50cc/hr * Renal US: 5mm non-obtructing stone in upper pole, no hydronephrosis; incidental finding of gallbladder sludge, GBW thickening, pericholecystic fluid. 1 cm renal cyst in upper pole of right kidney. * FeNa 3.0% suggesting Intrinsic cause of renal insufficiency * Urine microalbumin 20.4 * Random total protein elevated at 35 * Bladder US--small post void residual 24 cc * Nephrology on consult, Dr Austin, help appreciated * likely acute tubular necrosis due to nephrotoxic medication usage Anemia * Hgb 9.9 * Baseline hemoglobin unknown * Stool occult negative * Anemia workup * Iron <10 * TIBC 197 * % saturation 5.07 * Retic count 0.5 * Ferritin 131 * Vitamin B12 419 * Folate 17.2 * Haptoglobin elevated at 427 Small Pericardial Effusion * Incidental finding noted on CT chest * Echo ordered showed mild pericardial effusion Abnormal Gallbladder finding, R/O acute cholecystitis * Gallbladder sludge, GBW thickening, pericholecystic fluid noted on renal US report * Difficult to assess if patient is having +[place] sign as inspiratory effort is poor 2/2 pleuritic chest pain * T bili within normal range, LFTs within normal range * Surgery on consult, Dr Ochoa, help appreciated * Per surgery, unlikely acute cholecystitis - findings likely auto claim representative of acute biliary contraction during the US process. No intervention planned. Prophylactic Measures Protonix 40 mg PO daily Heparin 5000U SC Q8 Heart Healthy Diet Ensure protein supplements Trial of Trazodone 50 mg HS for sleep difficulty Will need follow up outpatient CT w.o. contrast in 6 months to reassess pulmonary nodule Will need outpatient ultrasound in 6-12 months for renal cyst in right upper pole Will need outpatient colonoscopy due to anemia Case DW Dr. Ryan Chaudhry PGY-1 <Terry Dia - Last Filed: 10/09/17 19:24> Objective - Vital Signs/Intake and Output Vital Signs (last 24 hours): Temp Pulse Resp BP Pulse Ox 98.2 F 74 20 128/81 98 10/09/17 15:20 10/09/17 18:00 10/09/17 15:20 10/09/17 15:20 10/09/17 15:20 Intake and Output: 10/09/17 10/10/17 18:59 06:59 Intake Total 800 Balance 800 - Medications Medications: Current Medications Acetaminophen (Tylenol 325mg Tab) 650 mg PO Q6 PRN PRN Reason: fever, pain Acetylcysteine (Acetylcysteine 20%) 4 ml INH RQD [facility] Last Admin: 10/09/17 08:04 Dose: 4 ml Albuterol Sulfate (Albuterol 0.083% Inhal Kimberli (2.5 Mg/3 Ml) Ud) 2.5 mg INH RQD [facility] Last Admin: 10/09/17 08:04 Dose: 2.5 mg Amlodipine Besylate (Norvasc) 10 mg PO DAILY [facility] Last Admin: 10/09/17 10:54 Dose: 10 mg Ferrous Sulfate (Feosol) 325 mg PO BID [facility] Last Admin: 10/09/17 17:26 Dose: 325 mg Heparin Sodium (Porcine) (Heparin) 5,000 units SC Q8 [facility] Last Admin: 10/09/17 13:44 Dose: 5,000 units Azithromycin 500 mg/ Sodium (Chloride) 250 mls @ 250 mls/hr IVPB DAILY@2100 [facility] Last Admin: 10/08/17 22:46 Dose: 250 mls/hr Ceftriaxone Sodium 1 gm/ (Sodium Chloride) 100 mls @ 100 mls/hr IVPB DAILY@ 2000 [facility] Last Admin: 10/08/17 20:54 Dose: 100 mls/hr Sodium Chloride (Sodium Chloride 0.9%) 1,000 mls @ 50 mls/hr IV .Q20H [facility] Last Admin: 10/08/17 01:00 Dose: Not Given Losartan Potassium (Cozaar) 25 mg PO DAILY [facility] Pantoprazole Sodium (Protonix Ec Tab) 40 mg PO DAILY [facility] Last Admin: 10/09/17 10:53 Dose: 40 mg Saccharomyces Boulardii (Florastor) 250 mg PO BID [facility] Last Admin: 10/09/17 17:26 Dose: 250 mg Trazodone HCl (Desyrel) 50 mg PO HS [facility] Stop: 10/09/17 22:01 - Labs Labs: 10/09/17 07:30 10/09/17 07:30 APTT 30 SECONDS (21-34) 10/04/17 22:55 Attending/Attestation - Attestation I have personally seen and examined this patient.: Yes I have fully participated in the care of the patient.: Yes I have reviewed all pertinent clinical information, including history, physical exam and plan: Yes Notes (Text): 10/09/17 19:20 Hospitalist Progress Note Patient was seen and examined with the [id number] 566. Exam, assessment and plan were thoroughly gone over with the resident. Also on ROS: Having trouble sleeping She is moving her bowels without incident Appetite has improved and she is eating and drinking the Ensure Shakes Cough is still present with occasional productive of small amount of white phlegm Assessments: 1). RUL Pneumonia vs TB Azithromycin, Ceftriaxone Urine Legionella is negative Plasma Mycoplasma is negative PPD placed 10/07/17 and this will need to be followed up on 10/09/17: PPD was read as negative by me Sputum Induction with Mucomyst/Albuterol and send Sputum for culture, AFB stain , and Mycobacterium PCR 10/08 through 10/10 Currently on Respiratory Isolation: although PPD negative and AFB x 3 negative on 10/07/17, ID would like to await Quanteferon Gold F/U HIV F/U Quateferon Gold Blood Culture 10/05/17 is negative to date Urine Culture 10/05/17 shows no growth F/U consult ID Dr. Severino 2). Acute on Chronic Kidney Disease Continue IVF NS at 50 ml/hour Likely secondary to decreased PO intake due to lack of appetite from RUL Pneumonia: patient encourage to eat and drink plenty of fluids Also contributing are NSAID use and Irbesartan/HCTZ all of which are being held U/S Renal shows medical renal disease F/U 24 hour Urine Collection Nephrology Dr. Ragland 3). Anemia Likely Secondary to Iron Deficiency Iron 325 mg PO 2x/day She will need outpatient colonoscopy Stool Occult Blood Negative 4). Renal Cysts Repeat U/S in 6 months 5). Gall Bladder Sludge, Wall thickening, Pericholecystic Fluid on U/S Renal Evaluated by Surgery Dr. Ochoa's Team and they feel that this is secondary to contraction during U/S and NOT Acute Cholecystitis NO Barron's Sign on my exam 10/06/17 Monitor 6). Hx Percardial Effusion 2D Echocardiogram revealed an EF 65% with mild concentric LVH. 7). RML Lung Nodules She will need outpatient CT Chest without contrast in 6 to 12 months 8). Hx HTN HOLDING Irbesartan/HCTZ home medication considering the renal function Norvasc 5 mg PO 1x/day was increased to 10 mg PO 1x/day on 10/09/17. 9). Prophylaxis Acetaminophen Heparin Florastor Protonix Ensure Shakes 3x/day Trazadone 50 mg PO x 1 dose on night of 10/09/17 to help her sleep Terry Dia D.O. 10/09/17 19:23
[2017-10-09 07:54] LABS: BASO % 0.3 % (0.0-2.0); EOS # 0.6 K/uL (0.0-0.7); EOS % 4.4 % (0.0-4.0); HEMATOCRIT 29.2 % (34.0-47.0); LYMPH # 2.1 K/uL (1.0-4.3); LYMPH % 15.5 % (20.0-40.0); MEAN CELL VOLUME 84.3 fL (81.0-99.0); MEAN CORPUSCULAR HEMOGLOBIN 28.7 pg (27.0-31.0); MEAN CORPUSCULAR HGB CONC 34.1 g/dL (33.0-37.0); MEAN PLATELET VOLUME 9.9 fL (7.2-11.7); MONO # 0.8 K/uL (0.0-0.8); MONO % 5.7 % (0.0-10.0); RED CELL DISTRIBUTION WIDTH 14.1 % (11.5-14.5); WHITE BLOOD COUNT 13.6 K/uL (4.8-10.8)
[2017-10-09] MEDS: Acetylcysteine 20% Inhal Soln (4ml) INH SCH (08:04)
[2017-10-09] MEDS: Albuterol 0.083% Inhal Sol (2.5 mg/3 mL) UD INH SCH (08:04)
[2017-10-09 08:42] LABS: CREATININE, 24 HOUR URINE 1.11 g/24 h (0.63-2.50); CREATININE, URINE 0.37 g/L
--- NOTE | 2017-10-09 08:50 | CP.PCM.PN ---
Subjective - Date & Time of Evaluation Date of Evaluation: 10/09/17 Time of Evaluation: 08:50 - Subjective Subjective: Nephrology progress note for Dr Austin's service. Patient states she is feeling much better. The shortness of breath has improved. Complaining of insomnia. Voiding with no difficulties. Denies fever or chills. Objective - Vital Signs/Intake and Output Vital Signs (last 24 hours): Temp Pulse Resp BP Pulse Ox 98.7 F 66 20 158/85 H 96 10/09/17 07:35 10/09/17 07:35 10/09/17 07:35 10/09/17 07:35 10/09/17 07:35 Intake and Output: 10/09/17 10/09/17 06:59 18:59 Intake Total 400 Balance 400 - Medications Medications: Current Medications Acetaminophen (Tylenol 325mg Tab) 650 mg PO Q6 PRN PRN Reason: fever, pain Acetylcysteine (Acetylcysteine 20%) 4 ml INH RQD [facility] Last Admin: 10/09/17 08:04 Dose: 4 ml Albuterol Sulfate (Albuterol 0.083% Inhal Kimberli (2.5 Mg/3 Ml) Ud) 2.5 mg INH RQD [facility] Last Admin: 10/09/17 08:04 Dose: 2.5 mg Amlodipine Besylate (Norvasc) 5 mg PO DAILY [facility] Last Admin: 10/08/17 09:51 Dose: 5 mg Ferrous Sulfate (Feosol) 325 mg PO BID [facility] Last Admin: 10/08/17 18:23 Dose: 325 mg Heparin Sodium (Porcine) (Heparin) 5,000 units SC Q8 [facility] Last Admin: 10/09/17 05:11 Dose: 5,000 units Azithromycin 500 mg/ Sodium (Chloride) 250 mls @ 250 mls/hr IVPB DAILY@2100 [facility] Last Admin: 10/08/17 22:46 Dose: 250 mls/hr Ceftriaxone Sodium 1 gm/ (Sodium Chloride) 100 mls @ 100 mls/hr IVPB DAILY@ 2000 [facility] Last Admin: 10/08/17 20:54 Dose: 100 mls/hr Sodium Chloride (Sodium Chloride 0.9%) 1,000 mls @ 50 mls/hr IV .Q20H [facility] Last Admin: 10/08/17 01:00 Dose: Not Given Pantoprazole Sodium (Protonix Ec Tab) 40 mg PO DAILY [facility] Last Admin: 10/08/17 09:51 Dose: 40 mg Saccharomyces Boulardii (Florastor) 250 mg PO BID [facility] Last Admin: 10/08/17 18:23 Dose: 250 mg - Labs Labs: 10/09/17 07:30 10/08/17 08:31 APTT 30 SECONDS (21-34) 10/04/17 22:55 - Constitutional Appears: No Acute Distress, Chronically Ill - Head Exam Head Exam: ATRAUMATIC, NORMAL INSPECTION, NORMOCEPHALIC - Eye Exam Eye Exam: Normal appearance. absent: Scleral icterus - ENT Exam ENT Exam: Mucous Membranes Moist - Neck Exam Neck Exam: Normal Inspection - Respiratory Exam Respiratory Exam: Clear to Ausculation Bilateral, NORMAL BREATHING PATTERN. absent: Rales, Rhonchi, Wheezes, Respiratory Distress, Stridor - Cardiovascular Exam Cardiovascular Exam: REGULAR RHYTHM, +S1, +S2. absent: Murmur - GI/Abdominal Exam GI & Abdominal Exam: Soft, Normal Bowel Sounds. absent: Distended, Firm, Guarding, Rigid, Tenderness - Extremities Exam Extremities Exam: Normal Inspection - Back Exam Back Exam: NORMAL INSPECTION - Neurological Exam Neurological Exam: Alert, Awake, Oriented x3 - Psychiatric Exam Psychiatric exam: Normal Affect, Normal Mood - Skin Skin Exam: Dry, Intact, Warm Assessment and Plan (1) ELIZABETH (acute kidney injury) Assessment & Plan: Likely ATN in the setting of hypovolemia and infection. Renal function continuous to improve. Status: Acute (2) Proteinuria, unspecified Assessment & Plan: Non albuminuric, Myeloma work up sent, pending. Status: Acute (3) Anemia Assessment & Plan: Continue with po iron, feosol 325 mg bid. Status: Acute (4) CKD (chronic kidney disease) Assessment & Plan: Based on renal ultrasound finding, likely mild form. Status: Chronic (5) HTN (hypertension) Assessment & Plan: On Norvasc. Will restart patient's ARB, ibersartan not available in the hospital , will start losartan 25 mg daily. Status: Chronic (6) Pneumonia Assessment & Plan: Patient is on zithro and Rocephin Status: Acute (7) Renal cyst Status: Chronic - Assessment and Plan (Free Text) Assessment: Patient seen, examined and case discussed with Dr Austin.
[2017-10-09 09:01] LABS: BILIRUBIN,TOTAL 0.5 mg/dL (0.2-1.3); CALCIUM 8.3 mg/dl (8.6-10.4); MAGNESIUM 1.6 mg/dL (1.6-2.3); POTASSIUM 3.9 mmol/L (3.6-5.2); TOTAL PROTEIN 6.6 g/dL (6.3-8.3)
[2017-10-09 09:05] LABS: ALB/GLOB RATIO 0.9 (1.0-2.1)
[2017-10-09] MEDS: Pantoprazole 40 mg EC Tab PO SCH (10:53)
[2017-10-09] MEDS: Saccharomyces Boulardi 250 mg Cap PO SCH ×2 (10:54→17:26)
--- NOTE | 2017-10-09 11:53 | RAD ---
HISTORY: check for resolving pneumonia COMPARISON: 10/05/2017 TECHNIQUE: Chest PA and lateral FINDINGS: LUNGS: Improving right upper lobe infiltrate compared to 10/01. There is residual patchy opacity. There is no new infiltrate seen elsewhere. PLEURA: Small right pleural effusion. Possible very small left pleural effusion. CARDIOVASCULAR: Mild cardiomegaly. No congestive change. OSSEOUS STRUCTURES: No significant abnormalities. VISUALIZED UPPER ABDOMEN: Normal. OTHER FINDINGS: None. IMPRESSION: Partially resolved right upper lobe infiltrate. Small right pleural effusion and possible very small left pleural effusion.
[2017-10-09] MEDS: Sodium Chloride 0.9% 1,000 ML IV SCH (20:43)
[2017-10-09] MEDS: Azithromycin 500 MG in Sodium Chloride 0.9% 250 ML IVPB SCH (22:08)
[2017-10-10 05:25] LABS: BETA 1 GLOBULIN 0.5 g/dL (0.4-0.6); BETA 2 GLOBULIN 0.4 g/dL (0.2-0.5)
[2017-10-10] MEDS: Albuterol 0.083% Inhal Sol (2.5 mg/3 mL) UD INH SCH (08:14)
[2017-10-10] MEDS: Acetylcysteine 20% Inhal Soln (4ml) INH SCH (08:14)
[2017-10-10 08:19] VITALS: O2SAT 95
[2017-10-10] MEDS: Sodium Chloride 0.9% 1,000 ML IV SCH ×2 (08:58→13:48)
--- NOTE | 2017-10-10 09:24 | CP.PCM.PN ---
<Liv Alba - Last Filed: 10/10/17 11:35> Subjective - Date & Time of Evaluation Date of Evaluation: 10/10/17 Time of Evaluation: 09:20 - Subjective Subjective: Nephrology progress note for Dr Austin's service. Patient reports she slept better last night. States the right sided chest pain has improved. Denies sob, nausea, vomiting or diarrhea. No fever or chills. Objective - Vital Signs/Intake and Output Vital Signs (last 24 hours): Temp Pulse Resp BP Pulse Ox 98.2 F 60 20 139/75 95 10/10/17 08:18 10/10/17 08:18 10/10/17 08:18 10/10/17 08:18 10/10/17 08:18 - Medications Medications: Current Medications Acetaminophen (Tylenol 325mg Tab) 650 mg PO Q6 PRN PRN Reason: fever, pain Acetylcysteine (Acetylcysteine 20%) 4 ml INH RQD [facility] Last Admin: 10/10/17 08:14 Dose: 4 ml Albuterol Sulfate (Albuterol 0.083% Inhal Kimberli (2.5 Mg/3 Ml) Ud) 2.5 mg INH RQD [facility] Last Admin: 10/10/17 08:14 Dose: 2.5 mg Amlodipine Besylate (Norvasc) 10 mg PO DAILY [facility] Last Admin: 10/09/17 10:54 Dose: 10 mg Ferrous Sulfate (Feosol) 325 mg PO BID [facility] Last Admin: 10/09/17 17:26 Dose: 325 mg Heparin Sodium (Porcine) (Heparin) 5,000 units SC Q8 [facility] Last Admin: 10/10/17 05:16 Dose: 5,000 units Azithromycin 500 mg/ Sodium (Chloride) 250 mls @ 250 mls/hr IVPB DAILY@2100 [facility] Last Admin: 10/09/17 22:08 Dose: 250 mls/hr Ceftriaxone Sodium 1 gm/ (Sodium Chloride) 100 mls @ 100 mls/hr IVPB DAILY@ 2000 [facility] Last Admin: 10/09/17 20:43 Dose: 100 mls/hr Sodium Chloride (Sodium Chloride 0.9%) 1,000 mls @ 50 mls/hr IV .Q20H [facility] Last Admin: 10/10/17 08:58 Dose: 50 mls/hr Losartan Potassium (Cozaar) 25 mg PO DAILY [facility] Pantoprazole Sodium (Protonix Ec Tab) 40 mg PO DAILY [facility] Last Admin: 10/09/17 10:53 Dose: 40 mg Saccharomyces Boulardii (Florastor) 250 mg PO BID [facility] Last Admin: 10/09/17 17:26 Dose: 250 mg - Labs Labs: 10/09/17 07:30 10/09/17 07:30 APTT 30 SECONDS (21-34) 10/04/17 22:55 - Constitutional Appears: No Acute Distress, Chronically Ill - Head Exam Head Exam: ATRAUMATIC, NORMAL INSPECTION, NORMOCEPHALIC - Eye Exam Eye Exam: Normal appearance - ENT Exam ENT Exam: Mucous Membranes Dry - Neck Exam Neck Exam: Normal Inspection - Respiratory Exam Respiratory Exam: Clear to Ausculation Bilateral, NORMAL BREATHING PATTERN. absent: Rales, Rhonchi, Wheezes, Respiratory Distress, Stridor - Cardiovascular Exam Cardiovascular Exam: REGULAR RHYTHM, +S1. absent: JVD, Murmur - GI/Abdominal Exam GI & Abdominal Exam: Soft, Normal Bowel Sounds. absent: Distended, Firm, Guarding, Rigid, Tenderness - Extremities Exam Extremities Exam: Normal Inspection. absent: Pedal Edema, Tenderness - Back Exam Back Exam: NORMAL INSPECTION - Neurological Exam Neurological Exam: Alert, Awake, Oriented x3 - Psychiatric Exam Psychiatric exam: Normal Affect, Normal Mood - Skin Skin Exam: Dry, Intact, Warm Assessment and Plan (1) ELIZABETH (acute kidney injury) Assessment & Plan: Likely pre-renal superimposed with ATN. No new labs this AM, however, renal function improved based on yesterday's labs. Normal PTH and electrolytes. Status: Acute (2) Proteinuria, unspecified Assessment & Plan: Non albuminuric. Status: Acute (3) Anemia Assessment & Plan: H/H continued to improve with po iron, continue with po iron bid. Status: Acute (4) CKD (chronic kidney disease) Status: Chronic (5) HTN (hypertension) Assessment & Plan: Continue with Norvasc and losartan. Status: Chronic (6) Pneumonia Assessment & Plan: Management as per ID. on Rocephin and Zithromax. Repeat chest x-ray with improvement. Status: Acute (7) Renal cyst Status: Chronic <Keegan Austin - Last Filed: 10/10/17 17:20> Objective - Vital Signs/Intake and Output Vital Signs (last 24 hours): Temp Pulse Resp BP Pulse Ox 98.9 F 100 H 20 131/82 95 10/10/17 16:16 10/10/17 16:16 10/10/17 16:16 10/10/17 16:16 10/10/17 16:16 Intake and Output: 10/10/17 10/10/17 06:59 18:59 Intake Total 1320 Balance 1320 - Labs Labs: 10/09/17 07:30 10/09/17 07:30 APTT 30 SECONDS (21-34) 10/04/17 22:55 Assessment and Plan (1) ELIZABETH (acute kidney injury) Status: Acute (2) CKD (chronic kidney disease) Status: Chronic (3) HTN (hypertension) Status: Chronic (4) Anemia Status: Acute (5) Pneumonia Status: Acute (6) Renal cyst Status: Chronic Attending/Attestation - Attestation I have personally seen and examined this patient.: Yes I have fully participated in the care of the patient.: Yes I have reviewed all pertinent clinical information, including history, physical exam and plan: Yes Notes (Text): Patient seen and examined; I agree with the resident's note as above with the follwing edits/additions: 67 yo F w/ pmh of htn, admitted with CAP; initially consulted for renal insufficiency; ELIZABETH resolving; likely ATN in the setting of sepsis, decreased PO intake and being on NSAIDS; CKD is difficult to diagnose at this point as serum creatinine is still improving (yesterday 1.1) and renal US is showing questionably increased echogenicity; proteinuria is overall mild and may simply be due to acute tubular injury; should have outpatient f/u; HTN controlled on amlodipine and losartan; can continue same, goal is <140/90; 10/10/17 17:15
[2017-10-10] MEDS: Pantoprazole 40 mg EC Tab PO SCH (09:48)
[2017-10-10] MEDS: Saccharomyces Boulardi 250 mg Cap PO SCH (09:48)
[2017-10-10] MEDS ORDERED: Ergocalciferol 50,000 Intl Units Cap PO SCH (12:30)
--- NOTE | 2017-10-10 15:58 | CP.PCM.DIS ---
Provider - Provider Date of Admission: 10/04/17 19:55 Attending physician: Terry Dia MD Consults: ID-Dr. Severino Nephro-Dr. Austin Surgery-Dr. Ochoa Time Spent in preparation of Discharge (in minutes): 50 Diagnosis - Discharge Diagnosis (1) Pneumonia Status: Acute (2) Acute kidney injury superimposed on chronic kidney disease Status: Acute (3) Lung nodule Status: Chronic (4) History of hypertension Status: Chronic (5) Anemia Status: Chronic (6) Renal cyst Status: Chronic (7) Prophylactic measure Status: Acute Hospital Course - Lab Results Lab Results: Micro Results 10/04/17 19:00 Blood Blood Culture - Final NO GROWTH AFTER 5 DAYS 10/04/17 19:00 Blood Gram Stain - Final TEST NOT PERFORMED 10/04/17 18:50 Blood Blood Culture - Final NO GROWTH AFTER 5 DAYS 10/04/17 18:50 Blood Gram Stain - Final TEST NOT PERFORMED 10/07/17 14:23 Other: Please Indicate Mycobacterial Culture - Preliminary 10/07/17 14:23 Other: Please Indicate Mycobacterial Culture - Preliminary 10/07/17 13:09 Other: Please Indicate Mycobacterial Culture - Preliminary 10/07/17 21:29 Sputum Gram Stain - Final 10/07/17 21:29 Sputum Sputum Culture - Final 10/05/17 Unknown Urine Urine Culture - Final No Growth (<1,000 CFU/ML) Most Recent Lab Values WBC 13.6 K/uL (4.8-10.8) H 10/09/17 07:30 RBC 3.47 Mil/uL (3.80-5.20) L 10/09/17 07:30 Hgb 10.0 g/dL (11.0-16.0) L 10/09/17 07:30 Hct 29.2 % (34.0-47.0) L 10/09/17 07:30 MCV 84.3 fL (81.0-99.0) 10/09/17 07:30 MCH 28.7 pg (27.0-31.0) 10/09/17 07:30 MCHC 34.1 g/dL (33.0-37.0) 10/09/17 07:30 RDW 14.1 % (11.5-14.5) 10/09/17 07:30 Plt Count 272 K/uL (130-400) 10/09/17 07:30 MPV 9.9 fL (7.2-11.7) 10/09/17 07:30 Neut % (Auto) 74.1 % (50.0-75.0) 10/09/17 07:30 Lymph % (Auto) 15.5 % (20.0-40.0) L 10/09/17 07:30 [place] % (Auto) 5.7 % (0.0-10.0) 10/09/17 07:30 Eos % (Auto) 4.4 % (0.0-4.0) H 10/09/17 07:30 Baso % (Auto) 0.3 % (0.0-2.0) 10/09/17 07:30 Neut # 10.1 K/uL (1.8-7.0) H 10/09/17 07:30 Lymph # 2.1 K/uL (1.0-4.3) 10/09/17 07:30 [place] # 0.8 K/uL (0.0-0.8) 10/09/17 07:30 Eos # 0.6 K/uL (0.0-0.7) 10/09/17 07:30 Baso # 0.0 K/uL (0.0-0.2) 10/09/17 07:30 Neutrophils % (Manual) 62 % (50-75) 10/07/17 07:47 Band Neutrophils % 5 % (0-2) H 10/07/17 07:47 Lymphocytes % (Manual) 16 % (20-40) L 10/07/17 07:47 Reactive Lymphs % 1 % (0-0) H 10/07/17 07:47 Monocytes % (Manual) 5 % (0-10) 10/07/17 07:47 Eosinophils % (Manual) 8 % (0-4) H 10/07/17 07:47 Metamyelocytes % 1 % (0-0) H 10/07/17 07:47 Myelocytes % 2 % (0-0) H 10/07/17 07:47 Toxic Granulation Present 10/04/17 19:04 Platelet Estimate Normal (NORMAL) 10/07/17 07:47 RBC Morphology Normal 10/05/17 07:54 Hypochromasia (manual) Slight 10/07/17 07:47 Poikilocytosis (manual Slight 10/07/17 07:47 Anisocytosis (manual) Slight 10/07/17 07:47 Target Cells Slight 10/07/17 07:47 Retic Count 0.5 % (0.5-1.5) 10/05/17 07:54 Haptoglobin 427 mg/dL (43-212) H 10/05/17 09:42 APTT 30 SECONDS (21-34) 10/04/17 22:55 Puncture Site Rr 10/05/17 20:06 pCO2 32 mm/Hg (35-45) L 10/05/17 20:06 pO2 84 mm/Hg (80-100) 10/05/17 20:06 HCO3 22.0 mmol/L (21-28) 10/05/17 20:06 ABG pH 7.41 (7.35-7.45) 10/05/17 20:06 ABG Total CO2 21.3 mmol/L (22-28) L 10/05/17 20:06 ABG O2 Saturation 99.5 % (95-98) H 10/05/17 20:06 ABG Base Excess -3.7 mmol/L (-2.0-3.0) L 10/05/17 20:06 ABG Hemoglobin 9.6 g/dL (11.7-17.4) L 10/05/17 20:06 ABG Carboxyhemoglobin 2.0 % (0.5-1.5) H 10/05/17 20:06 POC ABG HHb (Measured) 0.5 % (0.0-5.0) 10/05/17 20:06 ABG Methemoglobin 1.7 % (0.0-3.0) 10/05/17 20:06 Jose R Test Po 10/05/17 20:06 ABG Potassium 3.5 mmol/L (3.6-5.2) L 10/05/17 08:23 A-a O2 Difference 133.0 mm/Hg 10/05/17 20:06 Respiratory Index 1.6 10/05/17 20:06 Hgb O2 Saturation 95.7 % (95.0-98.0) 10/05/17 20:06 Sodium 143.0 mmol/l (132-148) 10/05/17 08:23 Chloride 117.0 mmol/L (98-107) H 10/05/17 08:23 Glucose 79 mg/dl (65-105) 10/05/17 08:23 Lactate 0.6 mmol/L (0.7-2.1) L 10/05/17 08:23 Liter Flow 4.0 10/05/17 20:06 FiO2 36.0 % 10/05/17 20:06 Sodium 136 mmol/L (132-148) 10/09/17 07:30 Potassium 3.9 mmol/L (3.6-5.2) 10/09/17 07:30 Chloride 107 mmol/L (98-107) 10/09/17 07:30 Carbon Dioxide 25 mmol/L (22-30) 10/09/17 07:30 Anion Gap 9 (10-20) L 10/09/17 07:30 BUN 20 mg/dL (7-17) H 10/09/17 07:30 Creatinine 1.1 mg/dL (0.7-1.2) 10/09/17 07:30 Est GFR ( Amer) 60 10/09/17 07:30 Est GFR (Non-Af Amer) 50 10/09/17 07:30 POC Glucose (mg/dL) 143 mg/dL (65-110) H 10/10/17 11:13 Random Glucose 98 mg/dL (65-105) 10/09/17 07:30 Calcium 8.3 mg/dl (8.6-10.4) L 10/09/17 07:30 Magnesium 1.6 mg/dL (1.6-2.3) 10/09/17 07:30 Iron < 10 ug/dL (37-170) L 10/05/17 07:54 TIBC 197 ug/dL (250-450) L 10/05/17 07:54 % Saturation 5.07 (20-55) L 10/05/17 07:54 Ferritin 131.0 ng/mL 10/05/17 07:54 Total Bilirubin 0.5 mg/dL (0.2-1.3) 10/09/17 07:30 AST 44 U/L (14-36) H 10/09/17 07:30 ALT 40 U/L (9-52) 10/09/17 07:30 Alkaline Phosphatase 216 U/L (38-126) H 10/09/17 07:30 Total Protein 6.6 g/dL (6.3-8.3) 10/09/17 07:30 Total Protein (PEP) 5.9 g/dL (6.1-8.1) L 10/08/17 08:31 Albumin 3.1 g/dL (3.5-5.0) L 10/09/17 07:30 Albumin (PEP) 2.5 g/dL (3.8-4.8) L 10/08/17 08:31 Globulin 3.5 gm/dL (2.2-3.9) 10/09/17 07:30 Albumin/Globulin Ratio 0.9 (1.0-2.1) L 10/09/17 07:30 Wlfkp-9-Ralrkjswp 0.6 g/dL (0.2-0.3) H 10/08/17 08:31 Ghktz-2-Kdfmaipva 1.0 g/dL (0.5-0.9) H 10/08/17 08:31 Whif-3-Rsukuumy 0.5 g/dL (0.4-0.6) 10/08/17 08:31 Ildz-5-Muvbaprm 0.4 g/dL (0.2-0.5) 10/08/17 08:31 Gamma Globulins 1.0 g/dL (0.8-1.7) 10/08/17 08:31 Abnorm Protein Band 1 TEST NOT PERFORMED 10/08/17 08:31 Abnorm Protein Band 2 TEST NOT PERFORMED 10/08/17 08:31 Abnorm Protein Band 3 TEST NOT PERFORMED 10/08/17 08:31 Vitamin B12 419 pg/mL (239-931) 10/05/17 07:54 25-OH Vitamin D Total 20.9 NG/ML (30.0-100.0) L 10/06/17 07:18 Folate 17.2 ng/mL 10/05/17 07:54 Procalcitonin 6.89 NG/ML (0.19-0.49) H 10/05/17 06:54 Calcium (PTH Intact) 8.0 mg/dL (8.6-10.4) L 10/06/17 07:18 PTH w/Ion &Tot Calcium 24 pg/mL (14-64) 10/06/17 07:18 Arterial Blood Potassium 3.5 mmol/L (3.6-5.2) L 10/05/17 08:23 Urine Color Yellow (YELLOW) 10/05/17 07:50 Urine Clarity Clear (Clear) 10/05/17 07:50 Urine pH 5.0 (5.0-8.0) 10/05/17 07:50 Ur Specific Boring 1.005 (1.003-1.030) 10/05/17 07:50 Urine Protein Negative mg/dL (NEGATIVE) 10/05/17 07:50 Urine Glucose (UA) Normal mg/dL (Normal) 10/05/17 07:50 Urine Ketones Negative mg/dL (NEGATIVE) 10/05/17 07:50 Urine Blood 1+ (NEGATIVE) H 10/05/17 07:50 Urine Nitrate Negative (NEGATIVE) 10/05/17 07:50 Urine Bilirubin Negative (NEGATIVE) 10/05/17 07:50 Urine Urobilinogen Normal mg/dL (0.2-1.0) 10/05/17 07:50 Ur Leukocyte Esterase Neg Josue/uL (Negative) 10/05/17 07:50 Urine WBC (Auto) 2 /hpf (0-5) 10/05/17 07:50 Urine RBC (Auto) 5 /hpf (0-3) H 10/05/17 07:50 Ur Squamous Epith Cells < 1 /hpf (0-5) 10/05/17 07:50 Amorphous Sediment Rare /ul (<OCC) H 10/05/17 07:50 Urine Bacteria Rare (<OCC) 10/05/17 07:50 Ur Random Creatinine 38.8 mg/dL 10/06/17 17:17 U Random Total Protein 15.0 mg/dL (0.0-12.0) H 10/08/17 15:27 Ur Random Sodium 52 mmol/L 10/05/17 14:28 Urine Collection Time 24 HRS 10/08/17 15:16 Urine Total Volume 3000 mL 10/08/17 15:16 Urine Creatinine 0.37 g/L 10/08/17 15:18 Ur Creatinine 24 Hour 1.11 g/24 h (0.63-2.50) 10/08/17 15:18 Urine Microalbumin 20.4 mg/L (0.0-16.6) H 10/05/17 11:10 Ur Total Protein 24 Hr 381 mg/24 h (<150) H 10/08/17 15:18 Protein/Creat Ratio 24h 344 mg/g creat (</=84) H 10/08/17 15:18 Urine Total Protein 127 mg/L (50-240) 10/08/17 15:18 Stool Occult Blood Negative (NEGATIVE) 10/05/17 11:10 Random Vancomycin 6.39 ug/mL 10/06/17 07:18 TRINI & SPEP Interp See note 10/08/17 08:31 Serum Immunofixation Not detected (Not Detected) 10/08/17 08:31 Hepatitis A IgM Ab Negative (NEGATIVE) 10/08/17 20:01 Hep Bs Antigen Negative (NEGATIVE) 10/08/17 20:01 Hep B Core IgM Ab Negative (NEGATIVE) 10/08/17 20:01 Hepatitis C Antibody Negative (NEGATIVE) 10/08/17 20:01 Influenza Typ A,B (EIA) Negative for flu a/b (NEGATIVE) 10/04/17 18:25 Ur L.pneumophila Ag Negative (NEGATIVE) 10/05/17 04:00 Mycoplasma pneumon IgM Negative (NEGATIVE) 10/05/17 06:54 TB Test (QFT) Nil 0.05 IU/mL 10/08/17 08:31 TB Test Mitogen - Nil 0.39 IU/mL 10/08/17 08:31 TB Test TB - Nil 0.02 IU/mL 10/08/17 08:31 TB Test (QFT) Indeterminate (Negative) H 10/08/17 08:31 - Hospital Course Hospital Course: Initial Note: "This is a 67 year old female with PMHx hypertension who presents complaining of right sided upper back pain. This began on Friday when the patient developed a sharp pain in the right upper thoracic region extending to the axilla on the same side. Pain worsens with breathing and conversing for long periods of time. Patient is at times short of breath but primarily she is experiencing a dry cough. Patient has been taking Naproxen 220 mg tabs 2-3 times daily since Friday to help with the pain with mild relief. Patient does not experience any other pain aside from the upper back pain. There is also complaint of some pain with urination which has also started around the same time. Patient also complaining of constipation but last BM was earlier this morning. Patient also feels a bit lightheaded at times. Of note, the patient is visiting from [facility] and has been taking Irbesartan/HCTZ 300/12.5 mg daily that [place]." Hospital Course: Patient admitted for right upper lobe pneumonia based on CXR and confirmed on CT scan. There was a concern of possible pericardial effusion on CT, but echocardiogram ruled that out. Patient was treated with Azithromycin 500 mg IV and Rocephin 1 mg IV daily since admission (totaling 7 days). ID specialist Dr. Severino was consulted. Due to risk factors for TB, patient was placed on isolation and workup initiated to rule out TB. PPD was negative, AFBx3 were negative. Quantiferon gold test was indeterminate. Repeat CXR showed improving infiltrate in the right upper lobe. Rumper Dr. Austin was consulted due to patient's acute kidney injury due to combination of Naproxen, ARB, and diuretic use. Patient likely has evidence of chronic kidney disease superimposed on acute injury. Surgeon Dr. Ochoa was consulted due to Gall Bladder Sludge, Wall thickening, Pericholecystic Fluid seen on renal ultrasound, but the surgical team felt that this was secondary to contraction during ultrasound and NOT Acute Cholecystitis. CT chest showed 4mm noncalcified nodule in the right middle lobe. Renal ultrasound showed 1 cm renal cyst in upper pole of right kidney. Will need follow up outpatient CT w.o. contrast in 6 months to reassess pulmonary nodule Will need outpatient ultrasound in 6-12 months for renal cyst in right upper pole Will need outpatient colonoscopy due to anemia Discharge Exam - Head Exam Head Exam: ATRAUMATIC, NORMAL INSPECTION, NORMOCEPHALIC - Eye Exam Eye Exam: EOMI, Normal appearance - ENT Exam ENT Exam: Mucous Membranes Moist - Respiratory Exam Respiratory Exam: Clear to PA & Lateral. absent: Rales, Rhonchi, Wheezes, Respiratory Distress - Cardiovascular Exam Cardiovascular Exam: REGULAR RHYTHM, +S1, +S2 - GI/Abdominal Exam GI & Abdominal Exam: Normal Bowel Sounds, Soft. absent: Tenderness - Extremities Exam Extremities exam: pedal pulses present - Neurological Exam Neurological exam: Alert, CN II-XII Intact, Oriented x3 - Psychiatric Exam Psychiatric exam: Normal Affect, Normal Mood - Skin Skin Exam: Dry, Intact, Normal Color, Warm Discharge Plan - Discharge Medications Prescriptions: amLODIPine [Norvasc] 10 mg PO DAILY #30 tab Cefpodoxime [Vantin] 200 mg PO BID 7 Days #14 tab Ferrous Sulfate [Feosol] 325 mg PO BID #60 tab Losartan [Cozaar] 25 mg PO DAILY #30 tab - Follow Up Plan Condition: STABLE Disposition: HOME/ ROUTINE Instructions: Cefpodoxime Proxetil (By mouth), Losartan (By mouth), Acute Kidney Injury (DC), Heart Healthy Diet (DC), DASH Eating Plan (DC), Hypertension (DC), Pneumonia (DC) Additional Instructions: Please take the Vantin also called Cepodoxime 200 mg twice a day with breakfast and dinner for 1 week. Please take Amlodipine 10 mg once a day at breakfast. Please take Losartan 25 mg once a day at lunch. Please take Ferrous sulfate 325 mg twice a day with breakfast and dinner. Please take an over the counter probiotic for 1 month. Please follow up in the clinic in the basement of the hospital called the [facility] within 1 week. You will need an ultrasound of your kidneys in one year to check on the kidney cysts that were seen. You will need a CT scan of your chest in 1 year to check the lung nodule that was seen on the CT scan here in the emergency room. If there are any new or worsening symptoms, please return to the emergency room. [place] [facility] Cepodoxime 200 mg dos veces al da con desayuno y toni jorge 1 semana. Por favor, tome Amlodipine 10 mg sirisha vez al da en el desayuno. Por favor tome Losartan 25 mg sirisha vez al da jorge el almuerzo. Por favor tome Ferrous sulfate 325 mg dos veces al da con desayuno y toni. Por favor, tome un probitico sin receta jorge 1 mes. Yu un seguimiento en la clnica en el [facility] dentro de 1 semana. Necesitar sirisha ecografa de timmy riones en un ao para controlar los quistes renales que se observaron. Necesitar sirisha tomografa computarizada de pederson trax en 1 ao para revisar el n dulo pulmonar que se observ en la tomografa computarizada aqu en la tasha de emergencias. Si hay sntomas nuevos o que empeoran, regrese a la tasha de emergencias. Referrals: [facility] [Outside]
[2017-10-10 16:17] VITALS: BP 131/82; PULSE 100; TEMP 98.9
== END 2017-10-10 16:40 | disposition home or self-care (01) | DRG 193 ==
LOC: C.ER 17:36 → C.9E 19:55 → C.3T 20:47 → C.5S 10-05 14:01
PROVIDERS: ADMIT Family Medicine; ATTEND Family Medicine
DX: J18.9 Pneumonia, unspecified organism (principal); N17.0 Acute kidney failure with tubular necrosis; N18.9 Chronic kidney disease, unspecified; Z90.710 Acquired absence of both cervix and uterus; Z79.899 Other long term (current) drug therapy; T50.2X5A Adverse effect of carbonic-anhydrase inhibitors, benzothiadiazides and other diuretics, initial encounter; N28.1 Cyst of kidney, acquired; R09.02 Hypoxemia; K44.9 Diaphragmatic hernia without obstruction or gangrene; J84.10 Pulmonary fibrosis, unspecified; I12.9 Hypertensive chronic kidney disease with stage 1 through stage 4 chronic kidney disease, or unspecified chronic kidney disease; E87.6 Hypokalemia; D50.9 Iron deficiency anemia, unspecified; R91.1 Solitary pulmonary nodule

== ENCOUNTER 2018-05-01 12:25 | Inpatient (IN) | payer OTHER ==
[2018-05-01 12:25] VITALS: BMI 29.0
--- NOTE | 2018-05-01 12:59 | C.PDOC ---
History Of Present Illness 68 y/o female sent from clinic for evaluation of elevated blood pressure. Patient states she went to a 2 week follow up appointment today after being started on Losartan. She is currently taking 30 mg Losartan BID and Metropolol 50 mg BID. Patient states she was given Norvasc 5 mg today at the clinic, and when repeat blood pressure was still high she was sent to ER for further evaluation. Patient is complaining of a mild frontal headache. She denies chest pain, shortness of breath, cough, fever, dizziness, visual changes, extremity weakness, sensory changes, or leg edema. Time Seen by Provider: 05/01/18 12:47 Chief Complaint (Nursing): High Blood Pressure History Per: Patient History/Exam Limitations: no limitations Onset/Duration Of Symptoms: Days Current Symptoms Are (Timing): Still Present Associated Symptoms: Headache Severity: Mild Exacerbating Factor(s): Pos: Recent Change In Medication Past Medical History Reviewed: Historical Data, Nursing Documentation, Vital Signs Vital Signs: Last Vital Signs Temp 98.0 F 05/05/18 11:25 Pulse 53 L 05/05/18 11:30 Resp 18 05/05/18 11:25 BP 121/74 05/05/18 11:25 Pulse Ox 98 05/05/18 11:25 - Medical History PMH: Arthritis (KNEE), HTN Family History: States: No Known Family Hx - Social History Hx Tobacco Use: No Hx Alcohol Use: No Hx Substance Use: No - Immunization History Hx Tetanus Toxoid Vaccination: No Hx Influenza Vaccination: No Hx Pneumococcal Vaccination: No Review Of Systems Constitutional: Negative for: Fever Eyes: Negative for: Vision Change ENT: Negative for: Ear Pain, Nose Congestion Cardiovascular: Negative for: Chest Pain, Palpitations Respiratory: Negative for: Cough, Shortness of Breath Gastrointestinal: Negative for: Nausea, Vomiting, Abdominal Pain, Diarrhea Musculoskeletal: Negative for: Neck Pain, Other (leg edema) Skin: Negative for: Rash Neurological: Positive for: Headache. Negative for: Weakness, Numbness, Incoordination, Change in Speech, Confusion, Seizures, Dizziness Physical Exam - Physical Exam Appears: Well, Non-toxic, No Acute Distress Skin: Normal Color, Warm, Dry, No Rash Head: Atraumatic, Normacephalic Eye(s): bilateral: Normal Inspection, PERRL, EOMI Oral Mucosa: Moist Neck: Normal, Normal ROM, No Midline Cervical Tenderness, No Paracervical Tenderness, No Step Off Deformity, Supple Cardiovascular: Rhythm Regular (bradycardic ), No Murmur Respiratory: Normal Breath Sounds, No Rales, No Rhonchi Gastrointestinal/Abdominal: Normal Exam, Bowel Sounds, Soft, No Tenderness Extremity: Normal ROM, No Pedal Edema, No Calf Tenderness Extremity: Bilateral: Atraumatic, No Pedal Edema, Normal Color And Temperature, Normal ROM Pulses: Left Dorsalis Pedis: Normal, Right Dorsalis Pedis: Normal Neurological/Psych: Oriented x3, Normal Speech, Normal Cognition, Normal Cranial Nerves, No Cerebellar Signs, Normal Motor, Normal Sensation Gait: Steady ED Course And Treatment - Laboratory Results Result Diagrams: 05/04/18 07:37 05/04/18 07:37 ECG: Interpreted By Me, Viewed By Me ECG Rhythm: Sinus Bradycardia ECG Interpretation: Abnormal Interpretation Of ECG: Sinus [place] at 39 bpm, normal axis, no acute ST/T wave changes Rate From EC O2 Sat by Pulse Oximetry: 100 (RA) Pulse Ox Interpretation: Normal Progress Note: Blood work, EKG ordered and reviewed. Patient given PO tylenol for headache. - Physician Consult Information Time Consulting Physician Contacted: 14:42 Physician Contacted: Martell Alvarado Outcome Of Conversation: Discussed patient with hospitalist, agrees with obs tele for braydcardia (? due to metoprolol use) Disposition Counseled Patient/Family Regarding: Studies Performed - Disposition Disposition: HOSPITALIZED Disposition Time: 14:45 Condition: STABLE - Clinical Impression Clinical Impression: Sinus bradycardia, Poorly-controlled hypertension - Scribe Statement The provider has reviewed the documentation as recorded by the Zack Silverman Provider Attestation: All medical record entries made by the Zack were at my direction and personally dictated by me. I have reviewed the chart and agree that the record accurately reflects my personal performance of the history, physical exam, medical decision making, and the department course for this patient. I have also personally directed, reviewed, and agree with the discharge instructions and disposition. Decision To Admit - Pt Status Changed To: Hospital Disposition Of: Observation - . Bed Request Type: Telemetry Admitting Physician: Martell Alvarado Patient Diagnosis: Sinus bradycardia, Poorly-controlled hypertension
[2018-05-01 13:46] LABS: BASO # 0.1 K/uL (0.0-0.2); EOS # 1.4 K/uL (0.0-0.7); EOS % 14.5 % (0.0-4.0); HEMOGLOBIN 11.9 g/dL (11.0-16.0); LYMPH % 31.8 % (20.0-40.0); MEAN CELL VOLUME 84.7 fL (81.0-99.0); MEAN CORPUSCULAR HEMOGLOBIN 28.5 pg (27.0-31.0); MEAN CORPUSCULAR HGB CONC 33.6 g/dL (33.0-37.0); MEAN PLATELET VOLUME 11.9 fL (7.2-11.7); MONO # 0.6 K/uL (0.0-0.8); MONO % 6.8 % (0.0-10.0); NEUT # 4.3 K/uL (1.8-7.0); NEUT % 45.9 % (50.0-75.0); NRBC % 0.1 % (0.0-2.0); RBC 4.19 Mil/uL (3.80-5.20); RED CELL DISTRIBUTION WIDTH 14.2 % (11.5-14.5); WHITE BLOOD COUNT 9.4 K/uL (4.8-10.8)
[2018-05-01 14:10] LABS: ALB/GLOB RATIO 1.5 (1.0-2.1); ALBUMIN 4.3 g/dL (3.5-5.0); BLOOD UREA NITROGEN 22 mg/dL (7-17); CALCIUM 9.5 mg/dl (8.6-10.4); GFR AFRICAN-AMERICAN 54; GFR NON-AFRICAN AMERICAN 45
[2018-05-01 14:11] LABS: ALT/SGPT 24 U/L (9-52); AST/SGOT 22 U/L (14-36); CK-MB 0.55 ng/mL (0.0-3.38)
--- NOTE | 2018-05-01 15:56 | CP.PCM.HP ---
<Alejandro Segovia - Last Filed: 05/01/18 16:46> History of Present Illness - History of Present Illness History of Present Illness: PGY-2 H&P for Dr. Kong's Hospitalist Service CC: Elevated blood pressure 68 year old female with a past medical history of hypertension comes into the emergency department with an elevated blood pressure. The patient was in [facility] when her blood pressure was taken and found to be 193 /90. The patient while in the clinic was given 5 mg of Norvasc and her blood pressure was re-checked and found to still be elevated. The patient was then referred to the emergency department for further management and workup. The patient states taking her medications as prescribed, however doesn't check her blood pressure at home. The patient also reports some mid sternal chest pain that radiates to the left arm sometime. She states that it comes in goes in severity and rates it a 6/10 in severity. She denies any palpitations, shortness of breath, dyspnea, fevers ,chills, nausea, vomiting, changes in vision, headaches, sore throat, cough, lower extremity edema, or any other complaints. Past medical history: Hypertension Medications: Losartan 25mg PO Daily, Metoprolol 50mg PO BID Allergies: Denies Surgical history: Abdominal surgery Social history: Denies smoking or drinking history. Denies illicit drug use. Lives in [place]. PMD: Dr. Capps Present on Admission - Present on Admission Any Indicators Present on Admission: No Review of Systems - Constitutional Constitutional: absent: Daytime Sleepiness, Headache, Snoring, Weakness - EENT Eyes: absent: Blurred Vision, Discharge, Loss of Peripheral Vision, Sees Flashes , Loss of Vision Ears: absent: Ear Discharge, Dizziness Nose/Mouth/Throat: absent: Nasal Congestion, Halitosis, Mouth Pain, Facial Pain - Cardiovascular Cardiovascular: Chest Pain. absent: Diaphoresis, Irregular Heart Rhythm, Palpitations, Pedal Edema, Radiating Pain, Syncope - Respiratory Respiratory: absent: Cough, Dyspnea, Hemoptysis, Pain on Inspiration, Change in Mucous Color - Gastrointestinal Gastrointestinal: absent: Belching, Change in Stool Character, Dysphagia, Heartburn, Loose Stools, Melena, Nausea, Vomiting - Musculoskeletal Musculoskeletal: absent: Arthralgias, Atrophy, Limited Range of Motion, Muscle Weakness, Myalgias, Stiffness, Tingling - Integumentary Integumentary: absent: Alopecia, Bleeding Lesions, Changing Lesions, Lesions, Rash, Unusual Bruising - Neurological Neurological: absent: Abnormal Hearing, Burning Sensations, Numbness, Lack of Coordination, Tremor, Vertigo - Psychiatric Psychiatric: absent: Anhedonia, Behavioral Changes, Depression, Hopelessness, Panic Attacks, Tactile Hallucinations - Endocrine Endocrine: absent: Polydipsia, Polyphagia, Polyuria - Hematologic/Lymphatic Hematologic: absent: Easy Bleeding, Easy Bruising Past Patient History - Past Medical History & Family History Past Medical History?: Yes - Past Social History Smoking Status: Never Smoked - CARDIAC Hx Hypertension: Yes - MUSCULOSKELETAL/RHEUMATOLOGICAL Hx Arthritis: Yes (KNEE) - PSYCHIATRIC Hx Substance Use: No - SURGICAL HISTORY Hx Hysterectomy: Yes - ANESTHESIA Hx Anesthesia: Yes Hx Anesthesia Reactions: No Hx Malignant Hyperthermia: No Meds Allergies/Adverse Reactions: Allergies Allergy/AdvReac Type Severity Reaction Status Date / Time No Known Allergies Allergy Unverified 10/04/17 17:42 Physical Exam - Head Exam Head Exam: ATRAUMATIC, NORMAL INSPECTION, NORMOCEPHALIC - Eye Exam Eye Exam: EOMI, Normal appearance, PERRL. absent: Periorbital tenderness Pupil Exam: NORMAL ACCOMODATION, PERRL. absent: Irregular, Unequal - ENT Exam ENT Exam: Mucous Membranes Moist, Normal Exam, Normal Oropharynx - Neck Exam Neck exam: Negative for: Lymphadenopathy, Thyromegaly - Respiratory Exam Respiratory Exam: Clear to Auscultation Bilateral, NORMAL BREATHING PATTERN - Cardiovascular Exam Cardiovascular Exam: Bradycardia, +S1, +S2 - GI/Abdominal Exam GI & Abdominal Exam: Normal Bowel Sounds, Soft - Extremities Exam Extremities exam: Positive for: normal inspection. Negative for: full ROM, pedal edema - Back Exam Back exam: NORMAL INSPECTION. absent: paraspinal tenderness - Neurological Exam Neurological exam: Alert, CN II-XII Intact, Oriented x3 - Psychiatric Exam Psychiatric exam: Normal Affect, Normal Mood - Skin Skin Exam: Dry, Intact, Normal Color Results - Vital Signs Recent Vital Signs: Last Vital Signs Temp 97.6 F 05/01/18 12:39 Pulse 45 L 05/01/18 12:39 Resp 18 05/01/18 12:39 BP 193/90 H 05/01/18 12:39 Pulse Ox 100 05/01/18 15:08 - Labs Result Diagrams: 05/01/18 13:42 05/01/18 13:42 Labs: Laboratory Results - last 24 hr 05/01/18 05/01/18 05/01/18 13:42 13:42 13:51 WBC 9.4 RBC 4.19 Hgb 11.9 Hct 35.5 MCV 84.7 MCH 28.5 MCHC 33.6 RDW 14.2 Plt Count 144 MPV 11.9 H Neut % (Auto) 45.9 L Lymph % (Auto) 31.8 [place] % (Auto) 6.8 Eos % (Auto) 14.5 H Baso % (Auto) 1.0 Neut # (Auto) 4.3 Lymph # (Auto) 3.0 [place] # (Auto) 0.6 Eos # (Auto) 1.4 H Baso # (Auto) 0.1 Sodium 144 Potassium 4.0 Chloride 107 Carbon Dioxide 26 Anion Gap 14 BUN 22 H Creatinine 1.2 Est GFR ( Amer) 54 Est GFR (Non-Af Amer) 45 POC Glucose (mg/dL) 85 Random Glucose 90 Calcium 9.5 Total Bilirubin 0.4 AST 22 ALT 24 Alkaline Phosphatase 97 Total Creatine Kinase 105 CK-MB (Mass) 0.55 Troponin I < 0.0120 Total Protein 7.3 Albumin 4.3 Globulin 3.0 Albumin/Globulin Ratio 1.5 Assessment & Plan - Assessment and Plan (Free Text) Assessment: 68 year old female with a past medical history of hypertension who comes in today for elevated blood pressure and chest pain. Plan: 1.Elevated blood pressure/Hypertensive urgency -BP 193/90 in the E.D. -Patient given 5 mg of Norvasc in the clinic with no improvement in symptoms. -Losartan increased to 50mg PO Daily -Amlodipine 10mg PO Daily Started -Cardiology consulted. Help appreciated. 2.Sinus bradycardia Likely secondary to Metoprolol. -EKG: sinus bradycardia @39bpm. -Metoprolol held. -Cardiology consulted. Help appreciated. 3.Chest pain LETY Score: 2. Patient has a 8% Risk all cause mortality, new or recurrent NC, or serve recurrent ischemia requiring urgent revascularization -EKG: sinus bradycardia @39bpm -Troponin(-)x1. Troponin ordered. Will f/u with results. -Last echo (03/2018) :EF>70% :Diastolic dysfunction :Mitral regurgitation mild :Tricuspid regurgitation mild :Mild pulmonary hypertension -Last Lipid panel (01/2018) :Triglycerides-127 :Cholesterol-211 :LDL-129 :HDL-49 -Last Thyroid function tests (01/2018) :TSH: 1.72 :Free T4: 1.23 -Cardiology consulted. Help appreciated. PPX Protonix Heparin Heart Healthy Diet Plan discussed with Attending Dr. Kong. Alejandro Segovia, PGY-2 <aMrtell Alvarado - Last Filed: 05/02/18 16:25> Results - Vital Signs Recent Vital Signs: Last Vital Signs Temp 98.0 F 05/02/18 07:00 Pulse 52 L 05/02/18 12:18 Resp 20 05/02/18 07:00 BP 155/90 H 05/02/18 07:00 Pulse Ox 98 05/02/18 14:00 - Labs Result Diagrams: 05/01/18 13:42 05/01/18 13:42 Labs: Laboratory Results - last 24 hr 05/01/18 16:14 Phosphorus 3.4 Magnesium 1.9 Troponin I < 0.0120 Attending/Attestation - Attestation I have personally seen and examined this patient.: Yes I have fully participated in the care of the patient.: Yes I have reviewed all pertinent clinical information: Yes Notes (Text): Seen and examined by me. Patient was brought in for uncontrolled hypertension Patient was in sinus bradycardia lowest at ER 39. Denies chest pain on admission. During history taking she admitted that She gets on and of chest pain 6/10. Patient very anxious about her high blood pressure. She was on Divan in the past.She also admitted she had foot edema with a medication( amlodipine ?) No shortness breath on ambulation 1. Sinus bradycardia 2. Uncontrolled BP 3. Chest pain she takes metoprolol 50mg bid and Losartan at home Discussed with the patient about stopping her metoprolol which cause her heart rate to go down Assessment and the plan discussed with the resident and I agree with the documentation
[2018-05-01] MEDS ORDERED: Glucagon Recombinant 1 mg Inj IV PRN (18:43)
--- NOTE | 2018-05-02 12:03 | CP.PCM.PN ---
Subjective - Date & Time of Evaluation Date of Evaluation: 05/02/18 Time of Evaluation: 12:00 - Subjective Subjective: patient was seen this morning ,No complain and no chest pain. She is concern about her high blood pressure With Israeli speaking RN translating she states that she unsually she gets abdominal pain ,she is not a good historian .Had some chest discomfort in the past ? One month ago while when was walking few blocks she was little sob. Objective - Vital Signs/Intake and Output Vital Signs (last 24 hours): Temp Pulse Resp BP Pulse Ox 98.0 F 49 L 20 155/90 H 98 05/02/18 07:00 05/02/18 07:13 05/02/18 07:00 05/02/18 07:00 05/02/18 08:28 - Medications Medications: Current Medications Amlodipine Besylate (Norvasc) 10 mg PO DAILY [facility] Last Admin: 05/02/18 10:38 Dose: 10 mg Glucagon (Glucagen Diagnostic Kit) 1 mg IV PRN PRN PRN Reason: Heart rate Heparin Sodium (Porcine) (Heparin) 5,000 units SC Q12 [facility] Last Admin: 05/02/18 10:39 Dose: 5,000 units Losartan Potassium (Cozaar) 50 mg PO DAILY [facility] Last Admin: 05/02/18 10:38 Dose: 50 mg Pantoprazole Sodium (Protonix Inj) 40 mg IVP DAILY [facility] Last Admin: 05/02/18 10:38 Dose: 40 mg - Labs Labs: 05/01/18 13:42 05/01/18 13:42 - Constitutional Appears: Non-toxic - Head Exam Head Exam: NORMAL INSPECTION - Eye Exam Eye Exam: Normal appearance - ENT Exam ENT Exam: Mucous Membranes Moist - Neck Exam Neck Exam: Full ROM - Respiratory Exam Respiratory Exam: Clear to Ausculation Bilateral, NORMAL BREATHING PATTERN - Cardiovascular Exam Cardiovascular Exam: Bradycardia, REGULAR RHYTHM - GI/Abdominal Exam GI & Abdominal Exam: Soft, Normal Bowel Sounds - Extremities Exam Extremities Exam: Full ROM - Back Exam Back Exam: NORMAL INSPECTION - Neurological Exam Neurological Exam: Awake, Oriented x3 - Psychiatric Exam Psychiatric exam: Normal Mood - Skin Skin Exam: Normal Color Assessment and Plan - Assessment and Plan (Free Text) Plan: 1. Uncontrolled hypertension continue amlodipine and Losartan Stop metoprolol follow cardiology recommendation 2..Sinus bradycardia-improving off metoprolol Likely secondary to Metoprolol. -EKG: sinus bradycardia /lowest 39bpm. -Metoprolol held. -Cardiology consulted. TSH in January 2018 1.72 3.Chest pain - Denies chest pain after admission h/o Dyspnea with exertion EKG: sinus bradycardia @39bpm Troponin negative x 2 Last echo (03/2018) :EF>70% :Diastolic dysfunction :Mitral regurgitation mild :Tricuspid regurgitation mild :Mild pulmonary hypertension Last Lipid panel (01/2018) :Triglycerides-127 :Cholesterol-211 :LDL-129 :HDL-49 Last Thyroid function tests (01/2018) :TSH: 1.72 :Free T4: 1.23 we will follow with fight manager. D/W Dr Butler
[2018-05-02 16:41] LABS: BASO # 0.1 K/uL (0.0-0.2); EOS # 1.5 K/uL (0.0-0.7); EOS % 17.8 % (0.0-4.0); HEMOGLOBIN 12.1 g/dL (11.0-16.0); LYMPH # 2.7 K/uL (1.0-4.3); LYMPH % 31.7 % (20.0-40.0); MEAN CELL VOLUME 84.9 fL (81.0-99.0); MEAN CORPUSCULAR HEMOGLOBIN 28.3 pg (27.0-31.0); MEAN CORPUSCULAR HGB CONC 33.3 g/dL (33.0-37.0); MEAN PLATELET VOLUME 11.2 fL (7.2-11.7); MONO # 0.6 K/uL (0.0-0.8); MONO % 7.1 % (0.0-10.0); NEUT # 3.6 K/uL (1.8-7.0); NEUT % 42.4 % (50.0-75.0); NRBC % 0.1 % (0.0-2.0); RBC 4.29 Mil/uL (3.80-5.20); RED CELL DISTRIBUTION WIDTH 14.2 % (11.5-14.5); WHITE BLOOD COUNT 8.4 K/uL (4.8-10.8)
[2018-05-02 16:59] LABS: ALB/GLOB RATIO 1.4 (1.0-2.1); CALCIUM 9.4 mg/dl (8.6-10.4)
[2018-05-03 08:55] LABS: BASO # 0.1 K/uL (0.0-0.2); BASO % 1.2 % (0.0-2.0); EOS # 1.4 K/uL (0.0-0.7); EOS % 18.8 % (0.0-4.0); HEMOGLOBIN 12.3 g/dL (11.0-16.0); LYMPH % 26.3 % (20.0-40.0); MEAN CELL VOLUME 85.5 fL (81.0-99.0); MEAN CORPUSCULAR HEMOGLOBIN 28.5 pg (27.0-31.0); MEAN CORPUSCULAR HGB CONC 33.3 g/dL (33.0-37.0); MEAN PLATELET VOLUME 12.4 fL (7.2-11.7); MONO # 0.4 K/uL (0.0-0.8); MONO % 5.3 % (0.0-10.0); NEUT # 3.7 K/uL (1.8-7.0); NEUT % 48.4 % (50.0-75.0); RBC 4.31 Mil/uL (3.80-5.20); RED CELL DISTRIBUTION WIDTH 13.7 % (11.5-14.5); WHITE BLOOD COUNT 7.6 K/uL (4.8-10.8)
[2018-05-03 09:34] LABS: ALB/GLOB RATIO 1.4 (1.0-2.1); ALBUMIN 4.3 g/dL (3.5-5.0); CALCIUM 9.6 mg/dl (8.6-10.4)
--- NOTE | 2018-05-03 13:33 | CP.PCM.PN ---
<Jose Hyman - Last Filed: 05/03/18 13:30> Subjective - Date & Time of Evaluation Date of Evaluation: 05/03/18 Time of Evaluation: 13:30 - Subjective Subjective: Progress Note for Medicine Pt seen and examined at bedside. She does not have any current symptoms- no chest pain, SOB, nausea, vomiting, headache, or weakness. She expresses extensive concern about her specific blood pressure medications, despite exhaustive reassurance that her BP is being monitored and controlled with current meds. No acute events. Objective - Vital Signs/Intake and Output Vital Signs (last 24 hours): Temp Pulse Resp BP Pulse Ox 98.7 F 58 L 20 133/84 96 05/03/18 07:48 05/03/18 11:25 05/03/18 07:48 05/03/18 07:48 05/03/18 07:54 - Medications Medications: Current Medications Amlodipine Besylate (Norvasc) 10 mg PO DAILY [facility] Last Admin: 05/03/18 10:31 Dose: 10 mg Aspirin (Aspirin Chewable) 81 mg PO DAILY [facility] Last Admin: 05/03/18 10:31 Dose: 81 mg Heparin Sodium (Porcine) (Heparin) 5,000 units SC Q12 [facility] Last Admin: 05/03/18 10:31 Dose: 5,000 units Losartan Potassium (Cozaar) 50 mg PO DAILY [facility] Last Admin: 05/03/18 10:31 Dose: 50 mg - Labs Labs: 05/03/18 08:42 05/03/18 08:42 - Constitutional Appears: No Acute Distress - Head Exam Head Exam: ATRAUMATIC, NORMOCEPHALIC - Eye Exam Eye Exam: EOMI, Normal appearance - ENT Exam ENT Exam: Mucous Membranes Moist - Respiratory Exam Respiratory Exam: Clear to Ausculation Bilateral, NORMAL BREATHING PATTERN. absent: Rales, Rhonchi, Wheezes - Cardiovascular Exam Cardiovascular Exam: REGULAR RHYTHM, +S1, +S2 - GI/Abdominal Exam GI & Abdominal Exam: Soft. absent: Distended, Guarding, Tenderness - Neurological Exam Neurological Exam: Alert, Awake, Oriented x3 - Skin Skin Exam: Dry, Warm Assessment and Plan - Assessment and Plan (Free Text) Plan: 1. Hypertension- now controlled with medications Cardio consult placed- Dr. Ng- Apple appreciated Amlodipine 10mg PO daily Losartan 50mg PO daily metoprolol - discontinued in setting of sinus bradycardia ASA 81mg PO daily Stress test 05/04/18- follow up recommendations 2. Sinus bradycardia Likely secondary to Metoprolol Holding metoprolol- now improved- 60-70BPM EKG: sinus bradycardia /lowest 39bpm. TSH in January 2018 1.72 Cardio consult placed- Dr. Russ Chiu appreciate 3. Chest pain - ambiguous complaint on admission in ED Denied chest pain after admission Has h/o dyspnea with exertion EKG: sinus bradycardia @39bpm Troponin negative x 2 Last echo (03/2018) :EF>70% :Diastolic dysfunction :Mitral regurgitation mild :Tricuspid regurgitation mild :Mild pulmonary hypertension Last Lipid panel (01/2018) :Triglycerides-127 :Cholesterol-211 :LDL-129 :HDL-49 Last Thyroid function tests (01/2018) :TSH: 1.72 :Free T4: 1.23 Cardio consult placed- Dr. Russ Chiu appreciated Stress test 05/04/18- follow up recommendations 4. PPX GI PPX- not indicated DVT PPX: Heparin 5k U SC q12hrs Heart Healthy Diet There is a stress test scheduled with Dr. Ng tomorrow morning. D/C pending stress results- F/U cardio recs. Case discussed with Dr. Jenny Hyman D.O. <Martell Alvarado - Last Filed: 05/03/18 13:56> Objective - Vital Signs/Intake and Output Vital Signs (last 24 hours): Temp Pulse Resp BP Pulse Ox 98.7 F 58 L 20 133/84 96 05/03/18 07:48 05/03/18 11:25 05/03/18 07:48 05/03/18 07:48 05/03/18 13:00 - Medications Medications: Current Medications Amlodipine Besylate (Norvasc) 10 mg PO DAILY [facility] Last Admin: 05/03/18 10:31 Dose: 10 mg Aspirin (Aspirin Chewable) 81 mg PO DAILY [facility] Last Admin: 05/03/18 10:31 Dose: 81 mg Heparin Sodium (Porcine) (Heparin) 5,000 units SC Q12 [facility] Last Admin: 05/03/18 10:31 Dose: 5,000 units Losartan Potassium (Cozaar) 50 mg PO DAILY [facility] Last Admin: 05/03/18 10:31 Dose: 50 mg - Labs Labs: 05/03/18 08:42 05/03/18 08:42 Attending/Attestation - Attestation I have personally seen and examined this patient.: Yes I have fully participated in the care of the patient.: Yes I have reviewed all pertinent clinical information, including history, physical exam and plan: Yes Notes (Text): seen and examined by me.no complain,no nausea,no vomiting,no chest pain patient's Bradycardia better.blood pressure improving. continue amlodipine and Losartan Has chronic renal failure and her creatinine is 1.[address] ng. She is going for a stress test tomorrow assessment and the plan discussed with the resident and I agree with the documentation Plan discussed and explained to her and her son by RN at bedside.
[2018-05-04 08:01] LABS: BASO # 0.1 K/uL (0.0-0.2); BASO % 0.9 % (0.0-2.0); EOS # 1.6 K/uL (0.0-0.7); EOS % 21.2 % (0.0-4.0); LYMPH % 26.1 % (20.0-40.0); MEAN CORPUSCULAR HGB CONC 32.9 g/dL (33.0-37.0); MEAN PLATELET VOLUME 11.6 fL (7.2-11.7); MONO # 0.5 K/uL (0.0-0.8); MONO % 5.9 % (0.0-10.0); NEUT # 3.6 K/uL (1.8-7.0); NEUT % 45.9 % (50.0-75.0); NRBC % 0.1 % (0.0-2.0); PLATELET COUNT 145 K/uL (130-400); RBC 4.28 Mil/uL (3.80-5.20); RED CELL DISTRIBUTION WIDTH 14.2 % (11.5-14.5); WHITE BLOOD COUNT 7.8 K/uL (4.8-10.8)
[2018-05-04 08:06] LABS: ALB/GLOB RATIO 1.4 (1.0-2.1); ALBUMIN 4.1 g/dL (3.5-5.0); CALCIUM 9.6 mg/dl (8.6-10.4)
[2018-05-04 08:39] LABS: EOSINOPHIL 20 % (0-4); LYMPHOCYTE 29 % (20-40); MONOCYTE 6 % (0-10); NEUTROPHIL 45 % (50-75); PLATELET ESTIMATE NORMAL (NORMAL); TOTAL CELLS COUNTED 100
[2018-05-04 08:40] LABS: GIANT PLATELETS PRESENT; LARGE PLATELETS PRESENT
--- NOTE | 2018-05-04 11:05 | CP.PCM.CON ---
History of Present Illness - History of Present Illness History of Present Illness: PGY-[address] Butler Pt is a 68 year old kazakh-speaking female with PMHx HTN who presented to ED on Tuesday 05/01 with elevated blood pressure after patient was found to be hypertensive while attending a [facility] clinic, with BP found to be 193/90. Pt was given 5 mg of Norvasc while in clinic and BP was rechecked and found to remain elevated, at which point she came to ED for further evaluation. The patient stated that she takes her medication every day as prescribed, but denies monitoring her BP at home. Pt denies experiencing any chest pains. She did state that she has frequent anxiety and sometimes does experience mild palpitations associated with nervousness/anxiety, and she recalls this happening once two days ago. Pt states she sometimes feels short of breath walking up a flight of stairs. Denies alcohol, tobacco, or drug use. Review of Systems - Constitutional Constitutional: absent: Chills, Fatigue, Fever - Cardiovascular Cardiovascular: absent: Chest Pain, Chest Pain at Rest, Palpitations - Respiratory Respiratory: absent: Dyspnea, Dyspnea on Exertion - Gastrointestinal Gastrointestinal: absent: Abdominal Pain, Nausea, Vomiting - Neurological Neurological: absent: Confusion, Dizziness, Headaches Past Patient History - Past Medical History & Family History Past Medical History?: Yes - Past Social History Smoking Status: Never Smoked - CARDIAC Hx Hypertension: Yes - MUSCULOSKELETAL/RHEUMATOLOGICAL Hx Falls: No - PSYCHIATRIC Hx Substance Use: No - SURGICAL HISTORY Hx Hysterectomy: Yes - ANESTHESIA Hx Anesthesia: Yes Hx Anesthesia Reactions: No Hx Malignant Hyperthermia: No Meds Allergies/Adverse Reactions: Allergies Allergy/AdvReac Type Severity Reaction Status Date / Time No Known Allergies Allergy Unverified 10/04/17 17:42 - Medications Medications: Current Medications Amlodipine Besylate (Norvasc) 10 mg PO DAILY [facility] Last Admin: 05/04/18 09:49 Dose: 10 mg Aspirin (Aspirin Chewable) 81 mg PO DAILY [facility] Last Admin: 05/04/18 09:49 Dose: 81 mg Heparin Sodium (Porcine) (Heparin) 5,000 units SC Q12 [facility] Last Admin: 05/04/18 09:49 Dose: 5,000 units Losartan Potassium (Cozaar) 50 mg PO DAILY [facility] Last Admin: 05/04/18 09:49 Dose: 50 mg Physical Exam - Constitutional Appears: Well, Non-toxic, No Acute Distress - Head Exam Head Exam: NORMAL INSPECTION, NORMOCEPHALIC - Eye Exam Eye Exam: EOMI, Normal appearance, PERRL - ENT Exam ENT Exam: Mucous Membranes Moist - Respiratory Exam Respiratory Exam: Clear to Auscultation Bilateral. absent: Rales, Rhonchi, Wheezes - Cardiovascular Exam Cardiovascular Exam: REGULAR RHYTHM, +S1, +S2 - GI/Abdominal Exam GI & Abdominal Exam: Normal Bowel Sounds, Soft - Extremities Exam Extremities exam: Negative for: pedal edema - Neurological Exam Neurological exam: Alert, CN II-XII Intact, Oriented x3 - Skin Skin Exam: Intact, Normal Color Results - Vital Signs Recent Vital Signs: Last Vital Signs Temp 97.7 F 05/04/18 07:00 Pulse 57 L 05/04/18 07:40 Resp 20 05/04/18 07:00 BP 124/82 05/04/18 07:00 Pulse Ox 96 05/04/18 07:00 - Labs Result Diagrams: 05/04/18 07:37 05/04/18 07:37 Labs: Laboratory Results - last 24 hr 05/04/18 05/04/18 07:37 07:37 WBC 7.8 RBC 4.28 Hgb 12.0 Hct 36.4 MCV 85.0 MCH 28.0 MCHC 32.9 L RDW 14.2 Plt Count 145 MPV 11.6 Neut % (Auto) 45.9 L Lymph % (Auto) 26.1 [place] % (Auto) 5.9 Eos % (Auto) 21.2 H Baso % (Auto) 0.9 Neut # (Auto) 3.6 Lymph # (Auto) 2.0 [place] # (Auto) 0.5 Eos # (Auto) 1.6 H Baso # (Auto) 0.1 Neutrophils % (Manual) 45 L Lymphocytes % (Manual) 29 Monocytes % (Manual) 6 Eosinophils % (Manual) 20 H Platelet Estimate Normal Large Platelets Present Giant Platelets Present Sodium 146 Potassium 4.3 Chloride 106 Carbon Dioxide 29 Anion Gap 16 BUN 36 H Creatinine 1.5 H Est GFR ( Amer) 42 Est GFR (Non-Af Amer) 35 Random Glucose 94 Calcium 9.6 Total Bilirubin 0.3 AST 18 ALT 21 Alkaline Phosphatase 88 Total Protein 7.0 Albumin 4.1 Globulin 2.9 Albumin/Globulin Ratio 1.4 Assessment & Plan (1) HTN (hypertension) Assessment and Plan: BPs stable over the weekend: 124/82 - 104/68 Compliant with home meds: Norvasc 10mg po daily, Cozaar 50 mg po daily Acute changes in BP could be partially attributed to feelings of anxiety Recommend patient keep a home BP diary, follow up with her primary physician Status: Chronic (2) Bradycardia Assessment and Plan: Asymptomatic, HR 57 Not currently on any BBs, no change in mediation recommended at this time Follow up with primary care physician upon discharge Status: Acute
--- NOTE | 2018-05-04 17:14 | CP.PCM.PN ---
<Yenni Yo - Last Filed: 05/04/18 17:11> Subjective - Date & Time of Evaluation Date of Evaluation: 05/04/18 Time of Evaluation: 13:50 - Subjective Subjective: PGY-1 Medicine Progress Note for Dr. Valladares Patient was seen and examined today at bedside in no acute distress. Nurse reports no overnight events. Patient reports no new problems. Patient reports improvement in discomfort, voices desire to go home. Denies chest pain, shortness of breath, wheezing, abdominal pain, nausea, vomiting, constipation, diarrhea. Objective - Vital Signs/Intake and Output Vital Signs (last 24 hours): Temp Pulse Resp BP Pulse Ox 98.1 F 64 20 100/67 96 05/04/18 15:12 05/04/18 15:12 05/04/18 15:12 05/04/18 15:12 05/04/18 15:12 - Medications Medications: Current Medications Amlodipine Besylate (Norvasc) 10 mg PO DAILY [facility] Last Admin: 05/04/18 09:49 Dose: 10 mg Aspirin (Aspirin Chewable) 81 mg PO DAILY [facility] Last Admin: 05/04/18 09:49 Dose: 81 mg Heparin Sodium (Porcine) (Heparin) 5,000 units SC Q12 [facility] Last Admin: 05/04/18 09:49 Dose: 5,000 units Losartan Potassium (Cozaar) 50 mg PO DAILY [facility] Last Admin: 05/04/18 09:49 Dose: 50 mg - Labs Labs: 05/04/18 07:37 05/04/18 07:37 - Constitutional Appears: Well, Non-toxic, No Acute Distress - Head Exam Head Exam: ATRAUMATIC, NORMOCEPHALIC - Eye Exam Eye Exam: EOMI, Normal appearance, PERRL - ENT Exam ENT Exam: Mucous Membranes Moist, Normal Exam - Respiratory Exam Respiratory Exam: Clear to Ausculation Bilateral, NORMAL BREATHING PATTERN. absent: Rales, Rhonchi - Cardiovascular Exam Cardiovascular Exam: REGULAR RHYTHM, +S1, +S2. absent: Murmur - GI/Abdominal Exam GI & Abdominal Exam: Soft, Normal Bowel Sounds. absent: Tenderness - Extremities Exam Extremities Exam: Full ROM, Normal Capillary Refill, Normal Inspection. absent : Joint Swelling, Pedal Edema Additional comments: peripheral pulses present (radial, DP) - Neurological Exam Neurological Exam: Alert, Awake, CN II-XII Intact, Normal Gait, Oriented x3 - Psychiatric Exam Psychiatric exam: Normal Affect, Normal Mood - Skin Skin Exam: Dry, Intact, Normal Color, Warm Assessment and Plan - Assessment and Plan (Free Text) Plan: 1. Hypertension- now controlled with medications Cardio consult placed- Dr. Russ Chiu appreciated Amlodipine 10mg PO daily Losartan 50mg PO daily metoprolol - discontinued in setting of sinus bradycardia ASA 81mg PO daily Stress test postponed to 05/05/18- follow up recommendations 2. Sinus bradycardia Likely secondary to Metoprolol Holding metoprolol- now improved- 60-70BPM EKG: sinus bradycardia /lowest 39bpm. TSH in January 2018 1.72 Cardio consult placed- Dr. Russ Chiu appreciate 3. Chest pain - ambiguous complaint on admission in ED Denied chest pain after admission Has h/o dyspnea with exertion EKG: sinus bradycardia @39bpm Troponin negative x 2 Last echo (03/2018) :EF>70% :Diastolic dysfunction :Mitral regurgitation mild :Tricuspid regurgitation mild :Mild pulmonary hypertension Last Lipid panel (01/2018) :Triglycerides-127 :Cholesterol-211 :LDL-129 :HDL-49 Last Thyroid function tests (01/2018) :TSH: 1.72 :Free T4: 1.23 Cardio consult placed- Dr. Russ Chiu appreciated Stress test 05/05/18- follow up recommendations 4. PPX GI PPX- not indicated DVT PPX: Heparin 5k U SC q12hrs Heart Healthy Diet, NPO at midnight for Stress Test There is a stress test scheduled with Dr. Butler tomorrow morning. D/C pending stress results- F/U cardio recs. Yenni Yo PGY-1. Case discussed with Dr. Valladares <Asa Valladares - Last Filed: 05/04/18 17:42> Objective - Vital Signs/Intake and Output Vital Signs (last 24 hours): Temp Pulse Resp BP Pulse Ox 98.1 F 64 20 100/67 96 05/04/18 15:12 05/04/18 15:12 05/04/18 15:12 05/04/18 15:12 05/04/18 15:12 - Medications Medications: Current Medications Amlodipine Besylate (Norvasc) 10 mg PO DAILY [facility] Last Admin: 05/04/18 09:49 Dose: 10 mg Aspirin (Aspirin Chewable) 81 mg PO DAILY [facility] Last Admin: 05/04/18 09:49 Dose: 81 mg Heparin Sodium (Porcine) (Heparin) 5,000 units SC Q12 [facility] Last Admin: 05/04/18 09:49 Dose: 5,000 units Losartan Potassium (Cozaar) 50 mg PO DAILY [facility] Last Admin: 05/04/18 09:49 Dose: 50 mg - Labs Labs: 05/04/18 07:37 05/04/18 07:37 Attending/Attestation - Attestation I have personally seen and examined this patient.: Yes I have fully participated in the care of the patient.: Yes I have reviewed all pertinent clinical information, including history, physical exam and plan: Yes Notes (Text): 05/04/18 17:38 Medical attending: Patient was seen and examined by me, I saw the patient together with the medical assistant instructor. Reviewed the above note and agree with the above. Patient was not in any acute distress we saw her. Her family member was present at bedside. She was okay with this. She did not have any episodes of severe bradycardia overnight. Per review of telemetry she rate was in the 50s overnight he was sinus. Also review of her blood pressure shows that her blood pressure is stable as mentioned previously she came to the [facility] clinic and was found to have severe bradycardia and sent to the emergency room. It is possible she had a lot of problems with the Toprol XL that she was on On exam today we also had her stand up and walk around with us. She is able to walk out to the nurses station from her room without becoming dizzy or short of breath, she denied palpitations or chest pain when walking around with us. We looked at her telemetry when she was walking around it looks sinus in the 70s Currently cardiology has rescheduled the stress test to be done tomorrow If the stress test is okay probably she could be discharged thank you Asa Valladares
--- NOTE | 2018-05-05 06:26 | CP.PCM.DIS ---
<SanazYenni Coni - Last Filed: 05/05/18 14:56> Provider - Provider Date of Admission: 05/03/18 15:44 Attending physician: Martell Alvarado MD Time Spent in preparation of Discharge (in minutes): 60 Hospital Course - Lab Results Lab Results: Most Recent Lab Values WBC 7.8 K/uL (4.8-10.8) 05/04/18 07:37 RBC 4.28 Mil/uL (3.80-5.20) 05/04/18 07:37 Hgb 12.0 g/dL (11.0-16.0) 05/04/18 07:37 Hct 36.4 % (34.0-47.0) 05/04/18 07:37 MCV 85.0 fL (81.0-99.0) 05/04/18 07:37 MCH 28.0 pg (27.0-31.0) 05/04/18 07:37 MCHC 32.9 g/dL (33.0-37.0) L 05/04/18 07:37 RDW 14.2 % (11.5-14.5) 05/04/18 07:37 Plt Count 145 K/uL (130-400) 05/04/18 07:37 MPV 11.6 fL (7.2-11.7) 05/04/18 07:37 Neut % (Auto) 45.9 % (50.0-75.0) L 05/04/18 07:37 Lymph % (Auto) 26.1 % (20.0-40.0) 05/04/18 07:37 Imperial % (Auto) 5.9 % (0.0-10.0) 05/04/18 07:37 Eos % (Auto) 21.2 % (0.0-4.0) H 05/04/18 07:37 Baso % (Auto) 0.9 % (0.0-2.0) 05/04/18 07:37 Neut # (Auto) 3.6 K/uL (1.8-7.0) 05/04/18 07:37 Lymph # (Auto) 2.0 K/uL (1.0-4.3) 05/04/18 07:37 Imperial # (Auto) 0.5 K/uL (0.0-0.8) 05/04/18 07:37 Eos # (Auto) 1.6 K/uL (0.0-0.7) H 05/04/18 07:37 Baso # (Auto) 0.1 K/uL (0.0-0.2) 05/04/18 07:37 Neutrophils % (Manual) 45 % (50-75) L 05/04/18 07:37 Lymphocytes % (Manual) 29 % (20-40) 05/04/18 07:37 Monocytes % (Manual) 6 % (0-10) 05/04/18 07:37 Eosinophils % (Manual) 20 % (0-4) H 05/04/18 07:37 Differential Comment 05/03/18 08:42 Platelet Estimate Normal (NORMAL) 05/04/18 07:37 Large Platelets Present 05/04/18 07:37 Giant Platelets Present 05/04/18 07:37 Sodium 146 mmol/L (132-148) 05/04/18 07:37 Potassium 4.3 mmol/L (3.6-5.2) 05/04/18 07:37 Chloride 106 mmol/L (98-107) 05/04/18 07:37 Carbon Dioxide 29 mmol/L (22-30) 05/04/18 07:37 Anion Gap 16 (10-20) 05/04/18 07:37 BUN 36 mg/dL (7-17) H 05/04/18 07:37 Creatinine 1.5 mg/dL (0.7-1.2) H 05/04/18 07:37 Est GFR ( Amer) 42 05/04/18 07:37 Est GFR (Non-Af Amer) 35 05/04/18 07:37 POC Glucose (mg/dL) 85 mg/dL (65-110) 05/01/18 13:51 Random Glucose 94 mg/dL (65-105) 05/04/18 07:37 Calcium 9.6 mg/dl (8.6-10.4) 05/04/18 07:37 Phosphorus 3.4 mg/dL (2.5-4.5) 05/01/18 16:14 Magnesium 1.9 mg/dL (1.6-2.3) 05/01/18 16:14 Total Bilirubin 0.3 mg/dL (0.2-1.3) 05/04/18 07:37 AST 18 U/L (14-36) 05/04/18 07:37 ALT 21 U/L (9-52) 05/04/18 07:37 Alkaline Phosphatase 88 U/L (38-126) 05/04/18 07:37 Total Creatine Kinase 105 U/L (30-135) 05/01/18 13:42 CK-MB (Mass) 0.55 ng/mL (0.0-3.38) 05/01/18 13:42 Troponin I < 0.0120 ng/mL (0.00-0.120) 05/01/18 16:14 Total Protein 7.0 g/dL (6.3-8.3) 05/04/18 07:37 Albumin 4.1 g/dL (3.5-5.0) 05/04/18 07:37 Globulin 2.9 gm/dL (2.2-3.9) 05/04/18 07:37 Albumin/Globulin Ratio 1.4 (1.0-2.1) 05/04/18 07:37 - Hospital Course Hospital Course: 68 year old female with a past medical history of hypertension comes into the emergency department with an elevated blood pressure. The patient was in [facility] when her blood pressure was taken and found to be 193 /90. The patient while in the clinic was given 5 mg of Norvasc and her blood pressure was re-checked and found to still be elevated. The patient was then referred to the emergency department for further management and workup. The patient states taking her medications as prescribed, however doesn't check her blood pressure at home. The patient also reports some mid sternal chest pain that radiates to the left arm sometime. She states that it comes in goes in severity and rates it a 6/10 in severity. She denies any palpitations, shortness of breath, dyspnea, fevers ,chills, nausea, vomiting, changes in vision, headaches, sore throat, cough, lower extremity edema, or any other complaints. EKG showed sinus bradycardia. Blood pressures were stable this hospitalization. Her troponins and EKGs were negative for ACS. ECHO and lipid panel done within the last 6 months, and can follow up as an outpatient. Nuclear stress test showed normal myocardial perfusion study with no evidence of ischemia with a normal LVEF (88%). Primary Diagnosis: Bradycardia 2/2 medication overdose, Hypertension, uncontrolled Patient is cleared for discharge per Dr. Valladares. Patient should STOP taking her metoprolol. She should continue taking her Losartan 25mg once a day. She should also start taking the following prescription: Norvasc (amlodipine) 10mg by mouth once a day Patient should follow up with her PMD at the [facility] within two weeks to reconcile her high blood pressure medications. If the patient's condition returns or worsens, she should return to the ED. This was discussed with the patient and son who understood and agreed. This is a summary of the hospital course. For more details, please refer to the EMR. - Date & Time of H&P Date of H&P: 05/05/18 Time of H&P: 14:56 Discharge Exam - Head Exam Head Exam: ATRAUMATIC, NORMOCEPHALIC - Eye Exam Eye Exam: EOMI, Normal appearance, PERRL - ENT Exam ENT Exam: Mucous Membranes Moist, Normal Exam - Respiratory Exam Respiratory Exam: Clear to PA & Lateral, NORMAL BREATHING PATTERN, UNREMARKABLE. absent: Rales, Rhonchi, Wheezes - Cardiovascular Exam Cardiovascular Exam: REGULAR RHYTHM, +S1, +S2. absent: Systolic Murmur - GI/Abdominal Exam GI & Abdominal Exam: Normal Bowel Sounds, Soft. absent: Distended, Firm, Guarding, Tenderness - Extremities Exam Extremities exam: normal capillary refill, pedal pulses present Additional comments: right arm IV removed prior to discharge - Neurological Exam Neurological exam: Alert, CN II-XII Intact, Normal Gait, Oriented x3, Reflexes Normal - Psychiatric Exam Psychiatric exam: Normal Affect, Normal Mood - Skin Skin Exam: Dry, Intact, Normal Color, Warm Discharge Plan - Discharge Medications Prescriptions: amLODIPine [Norvasc] 10 mg PO DAILY #30 tab Losartan [Cozaar] 25 mg PO DAILY #30 tab - Follow Up Plan Condition: STABLE Disposition: HOME/ ROUTINE Instructions: Heart Healthy Diet, DASH Diet, High Blood Pressure (DC), Bradycardia (DC), Low Salt Diet, Amlodipine, Losartan Additional Instructions: Patient is cleared for discharge per Dr. Valladares. Patient should STOP taking her metoprolol. She should continue taking her Losartan 25mg once a day. She should also start taking the following prescription: Norvasc (amlodipine) 10mg by mouth once a day Patient should follow up with her PMD at the [facility] within two weeks to reconcile her high blood pressure medications. If the patient's condition returns or worsens, she should return to the ED. This was discussed with the patient and son who understood and agreed. El Dr. Valladares autoriza el saida para el saida. El paciente debe dejar de florin pederson metoprolol. Kavitha debe continuar tomando Losartan 25 mg sirisha vez al da. Kavitha tambin debera comenzar a florin la siguiente receta: Norvasc (amlodipino) 10 mg por va oral sirisha vez al da El paciente debe realizar un seguimiento con pederson PMD en [facility] dentro de las dos semanas para reconciliar timmy medicamentos para la hipertensin arterial. Si la condicin del paciente regresa o empeora, debe regresar al servicio de urgencias. [place] fue discutido con el paciente y el hijo que entendieron y estuvieron de acuerdo. Referrals: Gabriela Capps MD [Staff Provider] - <Asa Valladares H - Last Filed: 05/05/18 18:56> Provider - Provider Date of Admission: 05/03/18 15:44 Attending physician: Martell Alvarado MD Hospital Course - Lab Results Lab Results: Most Recent Lab Values WBC 7.8 K/uL (4.8-10.8) 05/04/18 07:37 RBC 4.28 Mil/uL (3.80-5.20) 05/04/18 07:37 Hgb 12.0 g/dL (11.0-16.0) 05/04/18 07:37 Hct 36.4 % (34.0-47.0) 05/04/18 07:37 MCV 85.0 fL (81.0-99.0) 05/04/18 07:37 MCH 28.0 pg (27.0-31.0) 05/04/18 07:37 MCHC 32.9 g/dL (33.0-37.0) L 05/04/18 07:37 RDW 14.2 % (11.5-14.5) 05/04/18 07:37 Plt Count 145 K/uL (130-400) 05/04/18 07:37 MPV 11.6 fL (7.2-11.7) 05/04/18 07:37 Neut % (Auto) 45.9 % (50.0-75.0) L 05/04/18 07:37 Lymph % (Auto) 26.1 % (20.0-40.0) 05/04/18 07:37 Imperial % (Auto) 5.9 % (0.0-10.0) 05/04/18 07:37 Eos % (Auto) 21.2 % (0.0-4.0) H 05/04/18 07:37 Baso % (Auto) 0.9 % (0.0-2.0) 05/04/18 07:37 Neut # (Auto) 3.6 K/uL (1.8-7.0) 05/04/18 07:37 Lymph # (Auto) 2.0 K/uL (1.0-4.3) 05/04/18 07:37 Imperial # (Auto) 0.5 K/uL (0.0-0.8) 05/04/18 07:37 Eos # (Auto) 1.6 K/uL (0.0-0.7) H 05/04/18 07:37 Baso # (Auto) 0.1 K/uL (0.0-0.2) 05/04/18 07:37 Neutrophils % (Manual) 45 % (50-75) L 05/04/18 07:37 Lymphocytes % (Manual) 29 % (20-40) 05/04/18 07:37 Monocytes % (Manual) 6 % (0-10) 05/04/18 07:37 Eosinophils % (Manual) 20 % (0-4) H 05/04/18 07:37 Differential Comment 05/03/18 08:42 Platelet Estimate Normal (NORMAL) 05/04/18 07:37 Large Platelets Present 05/04/18 07:37 Giant Platelets Present 05/04/18 07:37 Sodium 146 mmol/L (132-148) 05/04/18 07:37 Potassium 4.3 mmol/L (3.6-5.2) 05/04/18 07:37 Chloride 106 mmol/L (98-107) 05/04/18 07:37 Carbon Dioxide 29 mmol/L (22-30) 05/04/18 07:37 Anion Gap 16 (10-20) 05/04/18 07:37 BUN 36 mg/dL (7-17) H 05/04/18 07:37 Creatinine 1.5 mg/dL (0.7-1.2) H 05/04/18 07:37 Est GFR ( Amer) 42 05/04/18 07:37 Est GFR (Non-Af Amer) 35 05/04/18 07:37 POC Glucose (mg/dL) 85 mg/dL (65-110) 05/01/18 13:51 Random Glucose 94 mg/dL (65-105) 05/04/18 07:37 Calcium 9.6 mg/dl (8.6-10.4) 05/04/18 07:37 Phosphorus 3.4 mg/dL (2.5-4.5) 05/01/18 16:14 Magnesium 1.9 mg/dL (1.6-2.3) 05/01/18 16:14 Total Bilirubin 0.3 mg/dL (0.2-1.3) 05/04/18 07:37 AST 18 U/L (14-36) 05/04/18 07:37 ALT 21 U/L (9-52) 05/04/18 07:37 Alkaline Phosphatase 88 U/L (38-126) 05/04/18 07:37 Total Creatine Kinase 105 U/L (30-135) 05/01/18 13:42 CK-MB (Mass) 0.55 ng/mL (0.0-3.38) 05/01/18 13:42 Troponin I < 0.0120 ng/mL (0.00-0.120) 05/01/18 16:14 Total Protein 7.0 g/dL (6.3-8.3) 05/04/18 07:37 Albumin 4.1 g/dL (3.5-5.0) 05/04/18 07:37 Globulin 2.9 gm/dL (2.2-3.9) 05/04/18 07:37 Albumin/Globulin Ratio 1.4 (1.0-2.1) 05/04/18 07:37 Attending/Attestation - Attestation I have personally seen and examined this patient.: Yes I have fully participated in the care of the patient.: Yes I have reviewed all pertinent clinical information, including history, physical exam and plan: Yes Notes (Text): 05/05/18 18:53 Medical attending: Patient was seen and examined by me. Agree with the above note by the resident The patient was not in any acute distress. She underwent a nuclear stress test today and the test was stable. She did not have chest pain or shortness of breath when we saw her. The patient was not bradycardia during the days. At night she was sinus in the 50s. Also the blood pressure numbers were stable as well. Patient will need the help of a seal mixer in [place] to help explain to her as well Asa Valladares
--- NOTE | 2018-05-05 11:25 | CARD ---
APPROVED REPORT Date of service: 05/05/2018 Protocol: LEXISCAN Test Type: LEXISCAN STRESS Test Indications: BRADYCARDIA HTN Target HR: 152 bpm Resting ECG: normal Resting Heart Rate: 60 bpm Resting Blood Pressure: 120/80mmHg submaximum (85%): 129 bpm TEST SUMMARY [id number]/80.0. INFUSIONDOSE 100:300.00.01.064/.0. [id number]/80.0. PROCEDURE Pharmacologic stress testing was performed using 0.4mg per 5ml of regadenoson given intravenously over 7-10 seconds. POST EXERCISE Reason for Termination: Protocol Completed Target HR: No Max HR: 64 bpm 67% of Maximum Predicted HR: 152 bpm Exercise duration: 00:30 min:sec, 0 Stage Exercise capacity: 1.0METs Max Blood Pressure: 124/80mmHg Blood Pressure response to exercise: N/A Heart Rate response to exercise: N/A Chest Pain: No, none Angina index: 0 Arrhythmia: No, none ST Change: No, none Deviation: 0 mm EXAM: Myocardial Perfusion STRESS/REST Imaging Protocol The imaging protocol used to acquire images was Stress Tc-99m/rest Tc-99m 1 day Rest Spect myocardial perfusion imaging was performed in supine position 45 minutes following the injection of 32.1 mCi of Tc-99 Myoview. Gated Stress Spect was performed 45 minutes after intravenous 12.4 mCi Tc-99 Myoview injection. The images were gated to evaluate regional wall motion and calculate ventricular ejection fraction.Images were reconstructed using backfilter projection method in short horizontal and verticle long axis. Spect slices were generated. RESTING DATA EDV33.86jbVI3.70L/min ESV4.00mlMyocardial Mass74.00g Av. Heart Rate61.00bpm EF88.00% STRESS DATA EDV45.44wfYD1.40L/min ESV5.00mlMyocardial Mass85.00g EF89.00% Regional WT score at stress:0.00 Regional WM score at stress:0.00 Summed WT score at stress:0.00 Av. Heart Rate60.00bpmSummed WM score at stress:1.00 Study quality was good. Left Ventricular size was Normal at Rest and Stress. The rest and stress images show normal perfusion, normal contraction and thickening. LV Perf. Quant 17 Seg. SSS0.00 17 Seg. SRS1.00 17 Seg. SDS0.00 Stress Defect Extent (% LAD)0.00Rest Defect Extent (% LAD)0.00Rev. Defect Extent (% LAD)0.00 Stress Defect Extent (% LCX)0.00Rest Defect Extent (% LCX)18.80Rev. Defect Extent (% LCX)0.00 Stress Defect Extent (% RCA)0.00Rest Defect Extent (% RCA)0.00Rev. Defect Extent (% RCA)0.00 Stress Defect Extent (% VENKATESH)0.00Rest Defect Extent (% VENKATESH)3.30Rev. Defect Extent (% VENKATESH)0.00 Other Information Quality:Good Overall Exercise Capacity: not assessed IMPRESSION Global LV Function: Normal Stress Test Summary: Normal LV Perfusion Summary: Normal Metabolism/Perfusion There are no perfusion/metabolism defects. Conclusion 1. - Normal myocardial perfusion study with no evidence of ischemia 2. - Normal LVEF
[2018-05-05 12:00] VITALS: BP 121/74; RESP 18; TEMP 98
[2018-05-05 12:05] VITALS: PULSE 53
[2018-05-05 14:23] VITALS: O2SAT 100
== END 2018-05-05 15:01 | disposition home or self-care (01) | DRG 138 ==
LOC: C.ER 12:25 → C.9E 14:45 → C.6T 16:25 → OBSVTOIN 05-03 15:44
PROVIDERS: ADMIT Internal Medicine; ATTEND Internal Medicine
DX: R00.1 Bradycardia, unspecified (principal); N18.9 Chronic kidney disease, unspecified; I12.9 Hypertensive chronic kidney disease with stage 1 through stage 4 chronic kidney disease, or unspecified chronic kidney disease